=== PATIENT | female | born 1985 | race Caucasian/White ===

== ENCOUNTER 2020-09-15 09:16 | Outpatient (REF) | payer OTHER, SELFPAY ==
[2020-09-15 10:58] LABS: TSH reflex Free T4 1.17 mIU/mL (0.32-4.0)
[2020-09-15 11:11] LABS: Alanine Aminotransferase 8 U/L (0-31); Albumin Level 4.1 g/dL (3.5-5.0); Alkaline Phosphatase 38 U/L (39-117); Anion Gap 12 (12-20); Aspartate Amino Transferase 14 U/L (5-31); Bilirubin Total 0.4 mg/dL (0.0-1.0); Blood Urea Nitrogen 16 mg/dL (9-16); Calcium 8.8 mg/dL (8.4-10.2); Carbon Dioxide 25 mmol/L (22-29); Chloride 105 mmol/L (96-108); Cholesterol 190 mg/dL; Estimated Glomerular Filt Rate > 60; Glucose Fasting 97 mg/dL (60-99); HDL Cholesterol 70 mg/dL; LDL Cholesterol Calculated 106 mg/dl; Potassium 4.4 mmol/l (3.3-5.1); Sodium 138 mmol/L (135-145); Total Protein 6.9 g/dL (6.5-8.0); Triglycerides 72 mg/dL
== END 2020-09-15 09:17 | disposition home or self-care (01) ==
LOC: HO.LAB 09:16
PROVIDERS: PCP Nurse Practitioner Family; Visit Provider Nurse Practitioner Family
DX: Z00.00 Encounter for general adult medical examination without abnormal findings (principal); Z13.220 Encounter for screening for lipoid disorders; Z13.29 Encounter for screening for other suspected endocrine disorder
CPT/HCPCS: 80053; 80061; 84443

== ENCOUNTER 2020-10-28 10:06 | Outpatient (REF) | payer OTHER, SELFPAY ==
[2020-10-28 10:41] LABS: COVID-19 Test Negative (Negative)
== END 2020-10-28 10:07 | disposition home or self-care (01) ==
LOC: HO.LAB 10:06
PROVIDERS: Visit Provider Internal Medicine
DX: Z20.828 Contact with and (suspected) exposure to other viral communicable diseases (principal)
CPT/HCPCS: 36415; 87635; C9803

== ENCOUNTER 2021-02-01 12:46 | Outpatient (REF) | payer OTHER, SELFPAY ==
[2021-02-01 13:46] LABS: COVID-19 Test Negative (Negative); IDNOW Serial# 55D5AD1C
== END 2021-02-01 12:47 | disposition home or self-care (01) ==
LOC: HO.EMPCOV 12:46
PROVIDERS: Visit Provider Internal Medicine
DX: Z20.822 Contact with and (suspected) exposure to COVID-19 (principal)
CPT/HCPCS: 36415; 87635; C9803

== ENCOUNTER 2021-03-13 19:38 | Emergency (ER) | payer OTHER, SELFPAY ==
--- NOTE | ~2021-03-13 | CT_ITS ---
EXAMINATION: CT HEAD WITHOUT CONTRAST CLINICAL INFORMATION: New onset headache, confusion. COMPARISON: CT head 12/27/2017. TECHNIQUE: Contiguous axial imaging was performed from the skull base to vertex without intravenous administration of contrast. This CT examination was performed using dose optimization techniques as appropriate, variously including the following: *Automated exposure control *Adjustment of mA and/or kV according to patient size (this includes techniques or standardized protocols for targeted exams where dose is matched to indication/reason for exam; i.e. extremities or head) *Use of iterative reconstruction technique DLP: 659 mGy-cm FINDINGS: There is no evidence of acute intracranial hemorrhage or territorial infarction. No abnormal mass effect or midline shift is seen. Love to white matter differentiation is well preserved. No extra-axial fluid collections are identified. The ventricles are normal in size. There is no abnormal attenuation within the brain parenchyma. The osseous structures and soft tissues are normal. The mastoid air cells and visualized portions of the paranasal sinuses are well aerated. CT/CT head/brain wo con IMPRESSION: No acute intracranial pathology.
[2021-03-13 20:31] VITALS: BP 142/73; PULSE 69; RESP 18; TEMP 36.9; O2SAT 99; BMI 31.9
--- NOTE | 2021-03-13 20:44 | ECG_ITS ---
Test Reason : MALIASE Blood Pressure : / mmHG Vent. Rate : 053 BPM Atrial Rate : 053 BPM P-R Int : 170 ms QRS Dur : 096 ms QT Int : 426 ms P-R-T Axes : 071 068 032 degrees QTc Int : 399 ms Sinus bradycardia Otherwise normal ECG When compared with ECG of 05-FEB-2018 18:54, No significant change was found Referred By: Lukas Musa Electronically Signed By:SENTHIL TOVAR MD
--- NOTE | 2021-03-13 21:09 | ED.GENADULT ---
HPI - General Adult General Chief complaint: General Medical Stated complaint: hi bp Time Seen by Provider: 03/13/21 21:09 Source: patient Mode of arrival: ambulatory Limitations: no limitations History of Present Illness HPI narrative: Patient history of insomnia vasovagal syncope episode status post pacemaker placement been under stress lately noticed palpitation feeling for last few weeks also complaining of headache for last 1 week nausea with confusion sometimes denies any chest pain no shortness of breath no fever no chills patient denies any significant depression no focal neurological deficit no seizures no history of migraine in the past Related Data Home Medications Medication Instructions Recorded Confirmed valacyclovir 1 tab PO DAILY 03/13/21 03/13/21 Previous Rx's Medication Instructions Recorded diazepam 5 mg tablet 5 mg PO BEDTIME PRN 30 Days #30 tab 02/15/21 Allergies Allergy/AdvReac Type Severity Reaction Status Date / Time ibuprofen [Ibuprofen] Allergy Intermediate SWELLING Verified 09/06/20 13:21 OF LIPS/TONGUE, swelling No Known Food Allergies Allergy Unknown Unknown Verified 09/06/20 13:21 Review of Systems Review of Systems: Yes all other systems are reviewed and are negative PMF Past Medical History Medical History Atopic dermatitis Constipation Dyslipidemia Dyspnea Pacemaker Restless leg syndrome Vasovagal syncope Surgical History History of lumpectomy Pacemaker Family History Family History Father HTN (hypertension) Mother Asthma Son No problems noted. Daughter No problems noted. Maternal Grandmother Breast cancer Lung cancer Maternal Grandfather Diabetes mellitus Paternal Grandmother No problems noted. Paternal Grandfather HTN (hypertension) Diabetes mellitus Heart disease Social History Social History Alcohol intake: current Alcohol intake frequency: a few times a week Alcohol type: wine Patient Tobacco Use Status: Former Tobacco user Smoked in Last 30 Days: No Use of substances other than those prescribed or required for medical reasons: No Advance Directives: No Patient : No Physical Exam Vital Signs: Vital Signs: Last Vital Signs Temp 98.7 F 03/13/21 21:47 Pulse 57 03/13/21 23:44 Resp 18 03/13/21 23:44 BP 107/65 03/13/21 23:44 Pulse Ox 98 03/13/21 23:44 Body Mass Index 31.9 Appearance: Alert. Oriented X3. No acute distress. Eyes: PERRLA, No Nystagmus ENT: Pharynx normal. Oral Mucosa moist no temporal artery tenderness no scalp tenderness Neck: Normal inspection. Neck supple. CVS: Normal heart rate and rhythm. Pulses normal. Respiratory: No respiratory distress. Equal air entry bilateral, no wheezing/rales/rhonchi Abdomen: Soft and nontender. Bowel sounds are present, no mass palpable, no CVA tenderness Skin: Skin warm and dry. Normal skin color. Normal skin turgor. Extremities: No lower extremity edema. No calf tenderness Neuro: Oriented X 3. No motor deficit. No sensory deficit.No cerebellar signs , cranial nerves II-XII intact Medical Decision Making MDM Narrative Medical decision making narrative: Patient with nonspecific multiple symptoms during stay in the ER patient had palpitation episode but no arrhythmias noticed on property assessment monitor CT scan head is negative labs are stable patient's symptoms likely from anxiety patient has appointment to see noise abatement engineer tomorrow Lab Data Lab results reviewed: Yes I reviewed the patient's lab results. Result diagrams: 03/13/21 21:31 03/13/21 21:31 Labs: Lab Results 03/13/21 03/13/21 03/13/21 Range/Units 21:31 21:31 21:31 WBC 8.0 (4.8-10.8) X10*3/uL RBC 4.00 L (4.20-5.50) X10*6/uL Hgb 12.5 (12.0-16.0) g/dl Hct 37.3 (37-47) % MCV 93.3 (80-98) fL MCH 31.3 (27.0-33.0) pg MCHC 33.5 (31.0-35.0) g/dl RDW 12.5 (11.0-16.0) % Plt Count 280 (160-400) X10*3/uL MPV 9.2 L (9.4-12.3) fL Immature Gran % (Auto) 0.4 (0.0-0.4) % Neut % (Auto) 57.5 (45-73) % Lymph % (Auto) 30.8 (20-40) % [place] % (Auto) 6.0 (2-11) % Eos % (Auto) 4.5 H (0-4) % Baso % (Auto) 0.8 (0-2) % Lymph # (Auto) 2.5 (1.2-4.9) X10*3/uL [place] # (Auto) 0.5 (0.1-1.2) X10*3/uL Eos # (Auto) 0.4 (0.0-0.4) X10*3/uL Baso # (Auto) 0.1 (0.0-0.2) X10*3/uL Abs Immat Gran (auto) 0.03 (0.00-0.03) X10*3/uL Absolute Neuts (auto) 4.6 (2.0-8.3) X10*3/uL Absolute Nucleated RBC 0.000 (0.0-0.012) X10*3/uL Nucleated RBC % (auto) 0.0 (0.0-0.2) /100WBC PT 13.0 (10.8-13.0) SEC INR 1.1 (0.9-1.1) Sodium 140 (135-145) mmol/L Potassium 3.7 (3.3-5.1) mmol/L Chloride 109 H (96-108) mmol/L Carbon Dioxide 25 (22-29) mmol/L Anion Gap 10 L (12-20) BUN 19 H (9-16) mg/dL Creatinine 0.94 (0.5-1.4) mg/dL Estim Creat Clear Calc 100.7 Estimated GFR > 60 Random Glucose 96 (60-115) mg/dL Calcium 9.0 (8.4-10.2) mg/dL Magnesium (1.6-2.6) mg/dL Total Bilirubin 0.5 (0.0-1.0) mg/dL AST 16 (5-31) U/L ALT 9 (0-31) U/L Alkaline Phosphatase 36 L (39-117) U/L Troponin I High Sens (<3.5-17.0) ng/L Total Protein 6.3 L (6.5-8.0) g/dL Albumin 3.8 (3.5-5.0) g/dL Urine Color Urine Appearance Urine pH (5.0-8.0) Ur Specific [employer] (1.005-1.025) Urine Protein (NEG-TRACE) MG/DL Urine Glucose (UA) (NEG) MG/DL Urine Ketones (NEG) MG/DL Urine Blood (NEG) Urine Nitrite (NEG) Ur Leukocyte Esterase (NEG) Urine RBC (0) /HPF Urine WBC (0-4) /HPF Ur Squamous Epith Cells /LPF Urine Bacteria /LPF Urine Test (NEGATIVE) COVID-19 (GAMALIEL) (Negative) COVID-19 Clin Com 03/13/21 03/13/21 03/13/21 Range/Units 21:31 21:31 21:38 WBC (4.8-10.8) X10*3/uL RBC (4.20-5.50) X10*6/uL Hgb (12.0-16.0) g/dl Hct (37-47) % MCV (80-98) fL MCH (27.0-33.0) pg MCHC (31.0-35.0) g/dl RDW (11.0-16.0) % Plt Count (160-400) X10*3/uL MPV (9.4-12.3) fL Immature Gran % (Auto) (0.0-0.4) % Neut % (Auto) (45-73) % Lymph % (Auto) (20-40) % [place] % (Auto) (2-11) % Eos % (Auto) (0-4) % Baso % (Auto) (0-2) % Lymph # (Auto) (1.2-4.9) X10*3/uL [place] # (Auto) (0.1-1.2) X10*3/uL Eos # (Auto) (0.0-0.4) X10*3/uL Baso # (Auto) (0.0-0.2) X10*3/uL Abs Immat Gran (auto) (0.00-0.03) X10*3/uL Absolute Neuts (auto) (2.0-8.3) X10*3/uL Absolute Nucleated RBC (0.0-0.012) X10*3/uL Nucleated RBC % (auto) (0.0-0.2) /100WBC PT (10.8-13.0) SEC INR (0.9-1.1) Sodium (135-145) mmol/L Potassium (3.3-5.1) mmol/L Chloride (96-108) mmol/L Carbon Dioxide (22-29) mmol/L Anion Gap (12-20) BUN (9-16) mg/dL Creatinine (0.5-1.4) mg/dL Estim Creat Clear Calc Estimated GFR Random Glucose (60-115) mg/dL Calcium (8.4-10.2) mg/dL Magnesium 2.0 (1.6-2.6) mg/dL Total Bilirubin (0.0-1.0) mg/dL AST (5-31) U/L ALT (0-31) U/L Alkaline Phosphatase (39-117) U/L Troponin I High Sens < 3.5 (<3.5-17.0) ng/L Total Protein (6.5-8.0) g/dL Albumin (3.5-5.0) g/dL Urine Color YELLOW Urine Appearance HAZY Urine pH 6.0 (5.0-8.0) Ur Specific [employer] 1.025 (1.005-1.025) Urine Protein NEG (NEG-TRACE) MG/DL Urine Glucose (UA) NEG (NEG) MG/DL Urine Ketones NEG (NEG) MG/DL Urine Blood 2+ H (NEG) Urine Nitrite NEG (NEG) Ur Leukocyte Esterase NEG (NEG) Urine RBC 1-4 (0) /HPF Urine WBC 0 (0-4) /HPF Ur Squamous Epith Cells 1+ /LPF Urine Bacteria 1+ /LPF Urine Test (NEGATIVE) COVID-19 (GAMALIEL) (Negative) COVID-19 Clin Com 03/13/21 03/13/21 Range/Units 21:38 22:27 WBC (4.8-10.8) X10*3/uL RBC (4.20-5.50) X10*6/uL Hgb (12.0-16.0) g/dl Hct (37-47) % MCV (80-98) fL MCH (27.0-33.0) pg MCHC (31.0-35.0) g/dl RDW (11.0-16.0) % Plt Count (160-400) X10*3/uL MPV (9.4-12.3) fL Immature Gran % (Auto) (0.0-0.4) % Neut % (Auto) (45-73) % Lymph % (Auto) (20-40) % [place] % (Auto) (2-11) % Eos % (Auto) (0-4) % Baso % (Auto) (0-2) % Lymph # (Auto) (1.2-4.9) X10*3/uL [place] # (Auto) (0.1-1.2) X10*3/uL Eos # (Auto) (0.0-0.4) X10*3/uL Baso # (Auto) (0.0-0.2) X10*3/uL Abs Immat Gran (auto) (0.00-0.03) X10*3/uL Absolute Neuts (auto) (2.0-8.3) X10*3/uL Absolute Nucleated RBC (0.0-0.012) X10*3/uL Nucleated RBC % (auto) (0.0-0.2) /100WBC PT (10.8-13.0) SEC INR (0.9-1.1) Sodium (135-145) mmol/L Potassium (3.3-5.1) mmol/L Chloride (96-108) mmol/L Carbon Dioxide (22-29) mmol/L Anion Gap (12-20) BUN (9-16) mg/dL Creatinine (0.5-1.4) mg/dL Estim Creat Clear Calc Estimated GFR Random Glucose (60-115) mg/dL Calcium (8.4-10.2) mg/dL Magnesium (1.6-2.6) mg/dL Total Bilirubin (0.0-1.0) mg/dL AST (5-31) U/L ALT (0-31) U/L Alkaline Phosphatase (39-117) U/L Troponin I High Sens (<3.5-17.0) ng/L Total Protein (6.5-8.0) g/dL Albumin (3.5-5.0) g/dL Urine Color Urine Appearance Urine pH (5.0-8.0) Ur Specific [employer] (1.005-1.025) Urine Protein (NEG-TRACE) MG/DL Urine Glucose (UA) (NEG) MG/DL Urine Ketones (NEG) MG/DL Urine Blood (NEG) Urine Nitrite (NEG) Ur Leukocyte Esterase (NEG) Urine RBC (0) /HPF Urine WBC (0-4) /HPF Ur Squamous Epith Cells /LPF Urine Bacteria /LPF Urine Test NEGATIVE (NEGATIVE) COVID-19 (GAMALIEL) Negative (Negative) COVID-19 Clin Com See Note ECG Data Attestation: I personally reviewed and interpreted this ECG as follows: Interpretation: Sinus bradycardia with heart rate 53 beats per minute normal intervals normal axis no acute ST wave changes impression sinus bradycardia Discharge Plan Discharge Clinical Impression: Acute tension headache, Heart palpitations Patient Disposition: Home, Self-Care Instructions: Heart Palpitations (ED), Acute Headache (ED) Additional Instructions: Continue medications Follow-up with noise abatement engineer as scheduled tomorrow In the ER we did not notice any significant arrhythmias Your head CT is negative Prescriptions: No Action diazepam 5 mg tablet 5 mg PO BEDTIME PRN (Reason: sleep) 30 Days Qty: 30 RF: 3 valacyclovir 500 mg tablet 1 tab PO DAILY RF: 0 Interventions: ED Discharge Assessment Last Done: 03/13/21 23:49 Discharge Date/Time: 03/13/21 23:53
[2021-03-13 21:42] LABS: MANUAL DIFF FLAG NO
[2021-03-13 21:45] LABS: Basophils Absolute Auto 0.1 X10*3/uL (0.0-0.2); Basophils Percent Auto 0.8 % (0-2); Eosinophils Absolute Auto 0.4 X10*3/uL (0.0-0.4); Eosinophils Percent Auto 4.5 % (0-4); Hematocrit 37.3 % (37-47); Hemoglobin 12.5 g/dl (12.0-16.0); Imm Gran Abs Auto 0.03 X10*3/uL (0.00-0.03); Imm Gran Pct Auto 0.4 % (0.0-0.4); Lymphocytes Absolute Auto 2.5 X10*3/uL (1.2-4.9); Lymphocytes Percent Auto 30.8 % (20-40); Mean Corpuscular HGB Conc 33.5 g/dl (31.0-35.0); Mean Corpuscular Hemoglobin 31.3 pg (27.0-33.0); Mean Corpuscular Volume 93.3 fL (80-98); Mean Platelet Volume 9.2 fL (9.4-12.3); Monocytes Absolute Auto 0.5 X10*3/uL (0.1-1.2); Neutrophils Absolute Auto 4.6 X10*3/uL (2.0-8.3); Neutrophils Percent Auto 57.5 % (45-73); Platelet Count 280 X10*3/uL (160-400); Red Cell Distribution Width 12.5 % (11.0-16.0)
[2021-03-13 21:47] VITALS: BP 111/63; PULSE 55; RESP 17; TEMP 37.1; O2SAT 97
[2021-03-13 21:50] LABS: INTERNATIONAL NORM RATIO 1.1 (0.9-1.1)
[2021-03-13 21:51] LABS: Glucose Urine UA NEG (NEG); Leukocyte Esterase Urine NEG (NEG); Nitrite Urine NEG (NEG); Specific Gravity - Urine 1.025 (1.005-1.025); Urine Blood 2+ (NEG); Urine Ketones NEG (NEG); Urine Protein NEG (NEG-TRACE)
[2021-03-13 21:52] LABS: Appearance Urine HAZY; Color Urine YELLOW
[2021-03-13 21:53] LABS: UPreg QC Valid YES; Urine Pregnancy NEGATIVE (NEGATIVE)
[2021-03-13] MEDS: Morphine Sulfate 4 MG/ML CARTRIDGE IVPUSH (21:53)
[2021-03-13] MEDS: ondansetron HCL 4 MG/2 ML VIAL IVPUSH (21:54)
[2021-03-13 22:01] LABS: Bacteria Urine 1+ /LPF; Squamous Epithelial Cell Urine 1+ /LPF; WBC Urine 0 /HPF (0-4)
[2021-03-13 22:13] LABS: Alanine Aminotransferase 9 U/L (0-31); Albumin Level 3.8 g/dL (3.5-5.0); Alkaline Phosphatase 36 U/L (39-117); Anion Gap 10 (12-20); Aspartate Amino Transferase 16 U/L (5-31); Bilirubin Total 0.5 mg/dL (0.0-1.0); Blood Urea Nitrogen 19 mg/dL (9-16); Carbon Dioxide 25 mmol/L (22-29); Chloride 109 mmol/L (96-108); Creatinine Clr Calc Pharmacy 100.7; Estimated Glomerular Filt Rate > 60; Glucose Random 96 mg/dL (60-115); Potassium 3.7 mmol/L (3.3-5.1); Sodium 140 mmol/L (135-145); Total Protein 6.3 g/dL (6.5-8.0)
[2021-03-13 22:18] LABS: Troponin-I High Sensitivity < 3.5 ng/L (<3.5-17.0)
[2021-03-13 22:51] LABS: COVID-19 Test Negative (Negative); IDNOW Serial# 9DD0AD1C
[2021-03-13] MEDS: Butalb/Acetamin/Caff 50/325/40 TABLET 1 TAB PO (23:36)
[2021-03-13 23:44] VITALS: BP 107/65; PULSE 57; RESP 18; O2SAT 98
== END 2021-03-13 23:53 | disposition home or self-care (01) ==
PROVIDERS: Emergency Provider Internal Medicine; PCP Nurse Practitioner Family
DX: G44.209 Tension-type headache, unspecified, not intractable (principal); R00.2 Palpitations; Z20.822 Contact with and (suspected) exposure to COVID-19; Z87.891 Personal history of nicotine dependence; Z79.899 Other long term (current) drug therapy
CPT/HCPCS: 36415; 70450; 80053; 81001; 81025; 83735; 84484; 85025; 85610; 87635; 93005; 96374; 96375; 99285; J2270; J2405

== ENCOUNTER → 2021-03-14 12:39 | Outpatient (BNVA) | payer OTHER, SELFPAY | PROVIDERS: Referring Provider Nurse Practitioner Family; Visit Provider Internal Medicine Cardiovascular Disease ==

== ENCOUNTER → 2021-04-05 08:32 | Outpatient (BNVA) | payer OTHER, SELFPAY | PROVIDERS: Visit Provider Obstetrics & Gynecology ==

== ENCOUNTER 2021-05-19 10:42 | Outpatient (REF) | payer OTHER, SELFPAY ==
[2021-05-19 12:03] LABS: Anion Gap 14 (12-20); Blood Urea Nitrogen 19 mg/dL (9-16); Carbon Dioxide 22 mmol/L (22-29); Chloride 106 mmol/L (96-108); Estimated Glomerular Filt Rate > 60; Glucose Random 92 mg/dL (60-115); Potassium 4.4 mmol/L (3.3-5.1); Sodium 138 mmol/L (135-145)
== END 2021-05-19 10:43 | disposition home or self-care (01) ==
LOC: HO.LAB 10:42
PROVIDERS: PCP Nurse Practitioner Family; Referring Provider Nurse Practitioner Family; Visit Provider Internal Medicine Cardiovascular Disease
DX: R55 Syncope and collapse (principal); R00.2 Palpitations; I10 Essential (primary) hypertension; Z79.899 Other long term (current) drug therapy; Z87.891 Personal history of nicotine dependence; Z95.0 Presence of cardiac pacemaker
CPT/HCPCS: 36415; 80048

== ENCOUNTER 2021-09-18 07:32 | Outpatient (REF) | payer OTHER, SELFPAY ==
[2021-09-18 07:41] LABS: MANUAL DIFF FLAG NO
[2021-09-18 07:52] LABS: Basophils Percent Auto 0.7 % (0-2); Eosinophils Absolute Auto 0.3 X10*3/uL (0.0-0.4); Eosinophils Percent Auto 5.7 % (0-4); Hematocrit 41.5 % (37.0-47.0); Hemoglobin 13.4 g/dl (12.0-16.0); Imm Gran Abs Auto 0.01 X10*3/uL (0.00-0.03); Imm Gran Pct Auto 0.2 % (0.0-0.4); Lymphocytes Absolute Auto 1.8 X10*3/uL (1.2-4.9); Lymphocytes Percent Auto 32.1 % (20-40); Mean Corpuscular HGB Conc 32.3 g/dl (31.0-35.0); Mean Corpuscular Hemoglobin 30.6 pg (27.0-33.0); Mean Corpuscular Volume 94.7 fL (80.0-98.0); Mean Platelet Volume 9.1 fL (9.4-12.3); Monocytes Absolute Auto 0.5 X10*3/uL (0.1-1.2); Monocytes Percent Auto 8.2 % (2-11); Neutrophils Percent Auto 53.1 % (45-73); Platelet Count 281 X10*3/uL (160-400); Red Blood Count 4.38 X10*6/uL (4.20-5.50); Red Cell Distribution Width 12.4 % (11.0-16.0); White Blood Count 5.6 X10*3/uL (4.8-10.8)
[2021-09-18 08:23] LABS: Alanine Aminotransferase 11 U/L (0-31); Albumin Level 3.9 g/dL (3.5-5.0); Alkaline Phosphatase 33 U/L (39-117); Anion Gap 10 (12-20); Aspartate Amino Transferase 17 U/L (5-31); Bilirubin Total 0.6 mg/dL (0.0-1.0); Blood Urea Nitrogen 12 mg/dL (9-16); Calcium 9.1 mg/dL (8.4-10.2); Carbon Dioxide 25 mmol/L (22-29); Chloride 108 mmol/L (96-108); Cholesterol 190 mg/dL; Estimated Glomerular Filt Rate > 60; Glucose Fasting 92 mg/dL (60-99); HDL Cholesterol 58 mg/dL; LDL Cholesterol Calculated 116 mg/dl; Potassium 4.1 mmol/L (3.3-5.1); Sodium 139 mmol/L (135-145); Total Protein 6.5 g/dL (6.5-8.0); Triglycerides 82 mg/dL
[2021-09-18 08:38] LABS: Appearance Urine CLEAR; Color Urine YELLOW; Glucose Urine UA NEG (NEG); Leukocyte Esterase Urine NEG (NEG); Nitrite Urine NEG (NEG); Specific Gravity - Urine 1.025 (1.005-1.025); UACC Culture Trigger NO; Urine Blood 1+ (NEG); Urine Ketones NEG (NEG); Urine Protein NEG (NEG-TRACE)
[2021-09-18 08:43] LABS: TSH reflex Free T4 1.18 uIU/mL (0.32-4.0)
[2021-09-18 08:52] LABS: Squamous Epithelial Cell Urine 2+ /LPF; WBC Urine 0-2 /HPF (0-4)
[2021-09-18 08:53] LABS: RBC Urine 0-2 /HPF (0)
== END 2021-09-18 07:33 | disposition home or self-care (01) ==
LOC: HO.LAB 07:32
PROVIDERS: Visit Provider Nurse Practitioner Family
DX: Z00.00 Encounter for general adult medical examination without abnormal findings (principal)
CPT/HCPCS: 36415; 80053; 80061; 81001; 84443; 85025

== ENCOUNTER → 2021-12-06 08:44 | Outpatient (BNVA) | payer OTHER, SELFPAY | PROVIDERS: PCP Nurse Practitioner Family; Referring Provider Nurse Practitioner Family; Visit Provider Internal Medicine Cardiovascular Disease ==

== ENCOUNTER → 2022-01-29 15:31 | Outpatient (BNVA) | payer OTHER, SELFPAY | PROVIDERS: PCP Nurse Practitioner Family; Visit Provider Internal Medicine Cardiovascular Disease | DX: Z13.89 Encounter for screening for other disorder (principal) ==

== ENCOUNTER → 2022-01-30 13:00 | Outpatient (BNVA) | payer OTHER, SELFPAY | PROVIDERS: PCP Nurse Practitioner Family; Visit Provider Nurse Practitioner Family | DX: Z13.89 Encounter for screening for other disorder (principal) ==

== ENCOUNTER 2022-02-07 08:44 | Outpatient (REF) | payer OTHER, SELFPAY ==
[2022-02-07 13:15] LABS: Influenza A PCR POSITIVE (Negative); Influenza B PCR NEGATIVE (Negative); Resp Syncy Virus RNA Qual PCR NEGATIVE (Negative); SARS COV2 PCR INHOUSE NEGATIVE (Negative)
== END 2022-02-07 08:45 | disposition home or self-care (01) ==
LOC: HO.LAB 08:44
PROVIDERS: Visit Provider Hospitalist
DX: Z20.822 Contact with and (suspected) exposure to COVID-19 (principal); J06.9 Acute upper respiratory infection, unspecified
CPT/HCPCS: 0241U

== ENCOUNTER 2022-04-02 12:00 | Outpatient (RCR) | payer OTHER, SELFPAY ==
--- NOTE | 2022-03-12 13:14 | MHC.PT.EP ---
[facility] [place] Office [place] Office [place] Office [address] [phone] F: [phone] F: [phone] F: [phone] F: [phone] Physical Therapy Plan of Care Date of Evaluation: Date of Surgery: N/A Diagnosis: Cervicalgia Tension-type headache, unspecified, not intractable Assessment: Pt is a pleasant 37yo F who presents to PT with R sided neck pain and headaches for ~1 month. Pt presents with current impairments in pain, decreased cervical ROM, soft tissue restrictions, and impaired posture. She was TTP throughout R occipitals, cervical PS, UT, levator, and medial scap border. She had improvement in symptoms with occipital release. She is limited functionally by prolonged sitting. Pt is an excellent candidate for skilled PT in order to address current impairments to facilitate return to PLOF. She will be seen 2x/week for 4 weeks and will be reassessed at that time. Frequency and Duration: The patient will be seen 2x/week for 4 weeks Short Term Goals: Pt will be I with HEP to promote self management of symptoms Pt will demonstrate improvements in postural awareness throughout the day Pt will improve B lateral flexion by at least 5 degrees Religious Leader Goals: Pt will demonstrate full cervical ROM all planes to assist with functional tasks such as driving Pt will have a decrease in frequency of headaches from 0-1x/week Pt will perform ADLs and functional tasks with pain less than or equal to 1/10 throughout neck Treatment Plan: Modalities to reduce pain, spasms and effusion. Manual therapy to restore motion and function. Therapeutic exercise to improve strength and flexibility. Neuromuscular re-education for posture and balance. Therapeutic activities to return to functional activities of daily living. Electronically signed by: Kelsy Meredith, PT, DPT Please sign and return to therapist. Thank you for your referral.
--- NOTE | 2022-04-03 16:41 | MHC.PT.DC ---
[facility] [place] Office [place] Office [place] Office [address] Kelly Ortiz [address] [phone] F: [phone] F: [phone] F: [phone] F: [phone] Physical Therapy Discharge Report Diagnosis: Cervicalgia Tension-type headache, unspecified, not intractable Date of Surgery: N/A Date of Evaluation: 03/12/22 Date of Discharge: 04/03/22 Treatments to Date: 6 Cancellations to Date: 0 No Shows to Date: 0 Discharge Status: Achieved Goals Improved Function Independent with HEP Discharge Summary: Pt has made excellent progress since SOC. She has had a decrease in pain and improvement in postural awareness. She has also had a decrease in headaches. She has improved her cervical ROM and has decreased soft tissue restrictions throughout her upper traps. She does continue to have some tightness but overall has improved greatly. She is I with HEP. Pt is being D/C from skilled PT at this time. Provided pt with printed, updated copy of HEP at last attended appointment on 04/02/22 and pt verbalized understanding. Pt reports no further questions or concerns for PT at time of D/C. Electronically signed by: Please sign and return to therapist. Thank you for your referral.
== END 2022-04-03 16:41 | disposition home or self-care (01) ==
LOC: HO.PT 12:00
PROVIDERS: Visit Provider Nurse Practitioner Family
DX: M54.2 Cervicalgia (principal); G44.209 Tension-type headache, unspecified, not intractable
CPT/HCPCS: 97110; 97140; 97162; 97530

== ENCOUNTER 2022-09-14 07:05 | Outpatient (REF) | payer OTHER, SELFPAY ==
[2022-09-14 07:10] LABS: MANUAL DIFF FLAG NO
[2022-09-14 07:24] LABS: Basophils Absolute Auto 0.1 X10*3/uL (0.0-0.2); Basophils Percent Auto 0.9 % (0-2); Eosinophils Absolute Auto 0.4 X10*3/uL (0.0-0.4); Eosinophils Percent Auto 5.3 % (0-4); Hematocrit 40.4 % (37.0-47.0); Hemoglobin 13.7 g/dl (12.0-16.0); Imm Gran Abs Auto 0.02 X10*3/uL (0.00-0.03); Imm Gran Pct Auto 0.3 % (0.0-0.4); Lymphocytes Absolute Auto 1.9 X10*3/uL (1.2-4.9); Lymphocytes Percent Auto 29.2 % (20-40); Mean Corpuscular HGB Conc 33.9 g/dl (31.0-35.0); Mean Corpuscular Hemoglobin 31.1 pg (27.0-33.0); Mean Corpuscular Volume 91.6 fL (80.0-98.0); Mean Platelet Volume 8.9 fL (9.4-12.3); Monocytes Absolute Auto 0.5 X10*3/uL (0.1-1.2); Monocytes Percent Auto 7.7 % (2-11); Neutrophils Absolute Auto 3.7 x10*3/uL (2.0-8.3); Neutrophils Percent Auto 56.6 % (45-73); Platelet Count 307 X10*3/uL (160-400); Red Blood Count 4.41 X10*6/uL (4.20-5.50); Red Cell Distribution Width 11.9 % (11.0-16.0); White Blood Count 6.6 X10*3/uL (4.8-10.8)
[2022-09-14 08:07] LABS: Appearance Urine Clear; Color Urine Yellow; Glucose Urine UA Negative (Negative); Leukocyte Esterase Urine Negative (Negative); Nitrite Urine Negative (Negative); PH 5.5 (5.0-9.0); Specific Gravity - Urine 1.025 (1.005-1.025); Urine Blood Negative (Negative); Urine Ketones Negative (Negative); Urine Protein Negative (Neg-Trace)
[2022-09-14 08:16] LABS: Alanine Aminotransferase 13 U/L (0-31); Albumin Level 4.1 g/dL (3.5-5.0); Alkaline Phosphatase 41 U/L (39-117); Anion Gap 11 (12-20); Aspartate Amino Transferase 18 U/L (5-31); Bilirubin Total 0.6 mg/dL (0.0-1.0); Blood Urea Nitrogen 14 mg/dL (9-16); Calcium 8.8 mg/dL (8.4-10.2); Carbon Dioxide 24 mmol/L (22-29); Chloride 108 mmol/L (96-108); Cholesterol 196 mg/dL; Estimated Glomerular Filt Rate > 60; Glucose Fasting 82 mg/dL (60-99); HDL Cholesterol 58 mg/dL; LDL Cholesterol Calculated 124 mg/dl; Sodium 139 mmol/L (135-145); TSH reflex Free T4 1.43 uIU/mL (0.32-4.0); Total Protein 6.6 g/dL (6.5-8.0); Triglycerides 74 mg/dL
== END 2022-09-14 07:06 | disposition home or self-care (01) ==
LOC: HO.LAB 07:05
PROVIDERS: PCP Nurse Practitioner Family; Visit Provider Nurse Practitioner Family
DX: Z00.00 Encounter for general adult medical examination without abnormal findings (principal)
CPT/HCPCS: 36415; 80053; 80061; 81003; 84443; 85025

== ENCOUNTER → 2022-12-10 09:18 | Outpatient (BNVA) | payer OTHER, SELFPAY | PROVIDERS: PCP Nurse Practitioner Family; Referring Provider Nurse Practitioner Family; Visit Provider Internal Medicine Cardiovascular Disease | DX: I10 Essential (primary) hypertension (principal); Z95.0 Presence of cardiac pacemaker | CPT/HCPCS: 93005; 93280 ==

== ENCOUNTER 2023-05-17 09:12 | Outpatient (AMB) | payer OTHER, SELFPAY ==
--- NOTE | 2023-05-17 09:26 | MHC.OFFVIS ---
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 Scribed for ARNOL Alejandro by Altagracia Field medical engineer, on 05/17/2023 at 9:42 am EST. Warping Machine Operator Required: No Information Interpreted: non-clinical & clinical Senior Bi Developer: Senior Bi Developer Present (Tayler REYES) Accompanied by: Self / Same As Patient Allergies No Known Allergies Allergy (Verified 05/17/23 09:33) Is last menstrual period known: Yes Last menstrual period: 05/05/23 HPI HPI Comments History of Present Illness Details She is a premenopausal woman presenting for annual exam. Complains of left sided back, upper flank pain, has not seen her PCP yet for this concern. Denies urinary symptoms. She admits to eating healthy and tries to stay active with exercise. Currently sexually active. Denies vaginal itching and irritation. Denies family hx of colon and ovarian cancer. Last pap smear 03/25/19. [facility] Medical History Atopic dermatitis Constipation Dyslipidemia Dyspnea HTN (hypertension) Pacemaker Restless leg syndrome Vasovagal syncope Surgical History History of lumpectomy Pacemaker Family History Father HTN (hypertension) Mother Asthma Son No problems noted. Daughter No problems noted. Maternal Grandmother Breast cancer Lung cancer Maternal Grandfather Diabetes mellitus Paternal Grandmother No problems noted. 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, [employer] Current occupational exposures/hazards: No Gender identity: Female Cognitive needs: No Hearing needs: No Vision needs: No Female Reproductive History Menstrual Age of Menarche: 15 Duration of menses: 3-5 days Date of last menstrual period: 05/05/23 control method: other (vasectomy) Total pregnancies: 2 Full term: 2 Number of Living Children: 2 Date of last pap smear: 03/25/19 Physical Exam Vital Signs: Last Vital Signs BP 110/68 05/17/23 09:27 BMI result Body Mass Index 41.5 Const General: cooperative, healthy appearing, no acute distress, well developed and alert Orientation/consciousness: patient oriented x3 HEENT Head: Yes normal to inspection Eyes General: appearance normal, both eyes and all related structures Neck Neck: Yes normal visual inspection Thyroid: Thyroid normal Chest Chest palpation & inspection: normal inspection of the chest Breast/axilla inspection: normal inspection of the breasts (no puckering, dimpling, peau de orange, retraction, discharge, masses) Breast/axilla palpation: normal palpation of the breasts Resp Effort & Inspection: normal respiratory effort GI Inspection: Yes normal to inspection Palpation (GI): Soft to palpation (to palpation) Rectal Exam - Female: deferred General: Yes bladder normal to inspection External Female Exam: normal external appearance and normal appearance of the urethra Speculum Exam - Vagina: normal appearance of the vagina, normal palpation and normal vaginal discharge Speculum Exam - Cervix: normal appearance of the cervix and normal palpation Bimanual exam- vagina & uterus: normal palpation and normal palpation Bimanual Exam- Adnexa, other: normal adnexae and no masses Skin General skin exam: no rashes or lesions noted Neuro General: patient oriented x3 Cognition (Neuro): normal cognition Extrem General: Yes normal to inspection Psych Attitude: cooperative Thought process: Normal thought process present Assessment & Plan Assessment & Plan (1) Encounter for well woman exam: Code(s): Z01.419 - Encounter for gynecological examination (general) (routine) without abnormal findings Plan: Discussed: Current recommendations for pap smears per ASCCP guidelines Breast awareness and periodic self breast exams. Maintaining a healthy lifestyle including a well balanced diet and routine exercise. Recommend if muscular-try yoga and stretches for left sided pain, and if persists consult with PCP for further workup. All of her questions and concerns were addressed to the best of my ability. RTO in one year for AG. Coding Level of Care Code Est Pt Prev Care 18-39y(14209) Diagnoses Encounter for well woman exam Z01.419
[2023-05-17 09:27] VITALS: BP 110/68; BMI 41.5
== END 2023-05-17 09:57 | disposition home or self-care (01) ==
LOC: HO.HWS 09:12
PROVIDERS: PCP Nurse Practitioner Family; Visit Provider Advanced Practice Midwife
DX: Z01.419 Encounter for gynecological examination (general) (routine) without abnormal findings (principal)
CPT/HCPCS: 99395

== ENCOUNTER → 2023-05-17 09:12 | Outpatient (BNVA) | payer OTHER, SELFPAY | PROVIDERS: PCP Nurse Practitioner Family; Visit Provider Advanced Practice Midwife ==

== ENCOUNTER → 2023-06-13 23:59 | Outpatient (BNV) | payer OTHER, SELFPAY ==
--- NOTE | 2023-06-13 11:26 | A.OFFVIS_ITS ---
Intake Intake Visit Reasons: Remote Device Check- [employer] Allergies No Known Allergies Allergy (Verified 05/17/23 09:33) [facility] Medical History Atopic dermatitis Constipation Dyslipidemia Dyspnea HTN (hypertension) Pacemaker Restless leg syndrome Vasovagal syncope Surgical History History of lumpectomy Pacemaker Family History Father HTN (hypertension) Mother Asthma Son No problems noted. Daughter No problems noted. Maternal Grandmother Breast cancer Lung cancer Maternal Grandfather Diabetes mellitus Paternal Grandmother No problems noted. 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 Pacemaker function is adequate [id number] Cardiac Device Interrogation, pacemaker Procedure code (CPT) selection complete Coding Level of Care Code Procedure Only CPT Codes Cardiac Device Check - Cardiac Device 12: [id number]-[id number] Cardiac Device Interrogation, pacemaker ([id number])
== END ==
PROVIDERS: PCP Nurse Practitioner Family; Visit Provider Internal Medicine Cardiovascular Disease
DX: Z00-Z99 Factors influencing health status and contact with health services (principal)
CPT/HCPCS: 93294

== ENCOUNTER 2023-09-12 10:30 | Outpatient (AMB) | payer OTHER, SELFPAY ==
--- NOTE | 2023-09-12 10:44 | MHC.PC.OV ---
Vital Signs 09/12/23 10:46 Weight 0 oz BMI Reason not done Patient refused/unable BP 122/78 Blood Pressure Location Rt brachial Position Sitting Pulse 66 Pulse Source Pulse Oximeter Pulse Oximetry (%) 96 Oxygen Delivery Method Room Air Intake Visit Reasons: Annual PE Intake Note: Patient here for physical exam. Allergies No Known Allergies Allergy (Verified 09/12/23 10:46) Medication List - Last Reconciled 09/12/23 by DERRELL Govea diazepam 5 mg PO BEDTIME PRN 30 days labetalol 200 mg PO BID valacyclovir 500 mg PO DAILY PRN Tobacco use date assessed: 09/12/23 Dental Screening Dental Screen Date: 09/12/23 Did you have a dental visit in the last 12 months?: Yes Did you have a dental problem in the last 6 months where you did not have access to dental care?: No Was dental information given to patient?: Patient has dentist HPI Annual PE HPI Details Pt is here for a PE. Will order labs. Has a obgyn hospitalist physician. Pt has a family hx of breast cancer (grandmother). She has been seen by a specialist for this in the past. [facility] Medical History HTN (hypertension) Constipation Vasovagal syncope Dyslipidemia Dyspnea Restless leg syndrome Atopic dermatitis Pacemaker Surgical History Pacemaker History of lumpectomy Family History Father HTN (hypertension) Mother Asthma Son No problems noted. Daughter No problems noted. Maternal Grandmother Breast cancer Lung cancer Maternal Grandfather Diabetes mellitus Paternal Grandmother No problems noted. 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 1. Little interest or pleasure in doing things: not at all 2. Feeling down, depressed, or hopeless: not at all 3. Trouble falling or staying asleep, or sleeping too much: several days 4. Feeling tired or having little energy: not at all 5. Poor appetite or overeating: not at all 6. Feeling bad about yourself - or that you are a failure or have let yourself or your family down: not at all 7. Trouble concentrating on things, such as reading the newspaper or watching television: not at all 8. Moving or speaking so slowly that other people could have noticed. Or the opposite - being so fidgety or restless that you have been moving around a lot more than usual: not at all 9. Thoughts that you would be better off or of hurting yourself in some way: not at all Total score: 1 Depression Screening Interpretation: Negative Depression Screening Done: Yes 64382 - PHQ-9 Billing: Yes Source: Developed by Drs. Yifan Ayers, Madai Eckert, Alonzo Hackett and colleagues, with an educational brenden from [employer]. Thrive Questionnaire Date Thrive assessed: 09/12/23 I am a: Patient Within the past 12 months, did the food you bought not last and you didn't have the money to get more?: Never true Within the past 12 months, did you worry whether your food would run out before you got money to buy more?: Never true Do you have trouble paying for medicines?: No Do you have trouble getting transportation to medical appointments?: No Do you have trouble paying your heating and electricity bill?: No Do you have trouble taking care of your child, family member or friend?: No Do you have trouble with day-to-day activities such as bathing, preparing meals, shopping, managing finances, etc.?: No Are you currently unemployed and looking for a job?: No Are you interested in more education?: No AUDIT C Alcohol Use Questionnaire (AUDIT-C) 1. How often do you have a drink containing alcohol?: Monthly or less 2. How many drinks containing alcohol do you have on a typical day when you are drinking?: 1 or 2 3. How often do you have six or more drinks on one occasion?: Never Total Score: 1 Score Reviewed/Action Taken: No CATRACHO-7 AMB Questionnaire CATRACHO-7 Date CATRACHO - 7 assessed: 09/12/23 Feeling nervous, anxious, or on edge: 1 = Several days Not being able to stop or control worryin = Not at all Worrying too much about different things: 0 = Not at all Trouble relaxin = Several days Being so restless that it is hard to sit still: 0 = Not at all Becoming easily annoyed or irritable: 0 = Not at all Feeling afraid as if something awful might happen: 0 = Not at all Total CATRACHO-7 score (0-4 normal; 5-9 mild; 10-14 moderate; 15-21 severe): 2 Source: Developed by Drs. Yifan Ayers, Madai Eckert, Alonzo Hackett and colleagues, with an educational brenden from [employer]. CATRACHO-7 Assessment Billing CATRACHO-7 Assessment Tool: CATRACHO-7 Assessment 12647 Review of Systems Const Denies chills and Denies fever(s) Eyes Denies blurry vision ENT Denies vertigo, Denies dizziness and Denies sore throat Card Denies chest pain at rest, Denies chest pain with activity, Denies diaphoresis, Denies dyspnea and Denies dyspnea on exertion Resp Denies cough, Denies dyspnea, Denies dyspnea on exertion and Denies wheezing GI Denies abdominal pain, Denies melena, Denies hematochezia, Denies constipation, Denies diarrhea and Denies loose stools Denies hematuria Musc Denies numbness and Denies tingling Skin/Breast Denies lesions Neuro Denies vertigo, Denies dizziness, Denies numbness and Denies tingling Psych Denies anxiety, Denies depression, Denies homicidal ideation, Denies suicidal ideation and Denies other (substance abuse) Aller/Immun Denies wheezing Physical exam (Primary Care) Vital Signs: Last Vital Signs Pulse 66 09/12/23 10:46 BP 122/78 12/07/23 10:46 Pulse Ox 96 09/12/23 10:46 Oxygen Delivery Method Room Air 09/12/23 10:46 Tobacco/Smoking Status: Tobacco use Status Tobacco use date assessed 09/12/23 09/12/23 10:48 Patient Tobacco Use Status Former Tobacco user 09/12/23 10:45 Tobacco use type Cigarette 09/12/23 10:45 e-Cigarette/Vaping Use Never Used 09/12/23 10:45 PHQ-9: PHQ-9 Score PHQ-9: Total score 1 09/12/23 11:31 Depression Screening Interpretation: Negative Thrive Assessment: Date of Thrive Assessment Date Thrive assessed 09/12/23 09/12/23 11:31 Const General: cooperative Nutritional Appearance: well nourished Orientation/consciousness: patient oriented x3 HENMT Head: Yes normal to inspection, Yes normocephalic and Yes atraumatic Ears: TM's normal bilaterally Eyes General: appearance normal, both eyes and all related structures Alignment and Position: alignment normal and position normal Neck Neck: Yes normal visual inspection and Yes no lymphadenopathy Thyroid: Thyroid normal Resp Effort & Inspection: normal respiratory effort Auscultation: clear to auscultation bilaterally Cardio Rate: regular rate Rhythm: regular rhythm Heart sounds: S1 normal heart sound present, S2 normal heart sound present and no murmurs GI Palpation (GI): Soft to palpation and nontender Auscultation: normal bowel sounds Skin Rashes: no rashes Neuro General: patient oriented x3, moves all extremities, no focal motor deficits and deep tendon reflexes 2+ bilaterally Romberg Test: Negative Psych Appearance: grossly normal Mental Status: mental status grossly normal Speech and movement: Normal speech and movement present Affect: normal affect Attitude: cooperative Thought process: Normal thought process present Thought content: Normal thought content present Insight: Good insight present (Psych) Judgement: Good judgement present (Psych) Assessment and Plan Assessment & Plan (1) Physical exam: Code(s): Z00.00 - Encounter for general adult medical examination without abnormal findings Plan: Labs ordered (2) Obesity: Code(s): E66.9 - Obesity, unspecified Plan: work on diet Plan The patient agreed to the use of a clinical medical transcriptionist for this encounter. Scribed for DERRELL Blanco by Lydia Loomis clinical medical transcriptionist, on 09/12/2023 at 11:00 EST. Orders: Orders Complete Blood Count Auto Diff Today Z00.00 - Encounter for general adult medical examination without abnormal findings Lipid Panel Today Z00.00 - Encounter for general adult medical examination without abnormal findings Comprehensive [place]. Panel Fast Today Z00.00 - Encounter for general adult medical examination without abnormal findings TSH reflex Free T4 Today Z00.00 - Encounter for general adult medical examination without abnormal findings UA CC w/rflx Micro + Cult Today Z00.00 - Encounter for general adult medical examination without abnormal findings Coding Level of Care Code Est Pt Prev Care 18-39y(56087) Diagnoses Physical exam Z00.00 Obesity E66.9 Additional Codes CATRACHO-7 Assessment Billing - CATRACHO-7 Assessment Tool: CATRACHO-7 Assessment 85861 ([id number])
[2023-09-12 10:46] VITALS: BP 122/78; PULSE 66; O2SAT 96
== END 2023-09-12 11:54 | disposition home or self-care (01) ==
PROVIDERS: Visit Provider Nurse Practitioner Family
DX: Z00.00 Encounter for general adult medical examination without abnormal findings (principal); E66.9 Obesity, unspecified
CPT/HCPCS: 99395

== ENCOUNTER → 2023-09-12 23:59 | Outpatient (BNV) | payer OTHER, SELFPAY ==
--- NOTE | 2023-09-16 14:32 | A.OFFVIS_ITS ---
Intake Intake Visit Reasons: Remote Device Check- Medtronic Allergies No Known Allergies Allergy (Verified 09/12/23 10:46) [facility] Medical History (Updated 09/13/23 @ 11:59 by DERRELL Govea) HTN (hypertension) Constipation Vasovagal syncope Dyslipidemia Dyspnea Restless leg syndrome Atopic dermatitis Pacemaker Surgical History Pacemaker History of lumpectomy Family History Father HTN (hypertension) Mother Asthma Son No problems noted. Daughter No problems noted. Maternal Grandmother Breast cancer Lung cancer Maternal Grandfather Diabetes mellitus Paternal Grandmother No problems noted. 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 Pacemaker function is adequate [id number] Cardiac Device Interrogation, pacemaker Procedure code (CPT) selection complete Assessment & Plan Assessment & Plan (1) Pacemaker: Comment: Dual-chamber Medtronic pacemaker placed, February 2018 Code(s): Z95.0 - Presence of cardiac pacemaker Plan: See above Coding Level of Care Code Procedure Only Diagnoses Pacemaker Z95.0 CPT Codes Cardiac Device Check - Cardiac Device 12: [id number] Cardiac Device Interrogation, pacemaker ([id number])
== END ==
PROVIDERS: PCP Nurse Practitioner Family; Visit Provider Internal Medicine Cardiovascular Disease
DX: R55 Syncope and collapse (principal); Z95.0 Presence of cardiac pacemaker
CPT/HCPCS: 93294

== ENCOUNTER 2023-09-13 07:48 | Outpatient (REF) | payer OTHER, SELFPAY ==
[2023-09-13 08:03] LABS: MANUAL DIFF FLAG NO
[2023-09-13 09:06] LABS: Basophils Absolute Auto 0.1 X10*3/uL (0.0-0.2); Basophils Percent Auto 0.7 % (0-2); Eosinophils Absolute Auto 0.3 X10*3/uL (0.0-0.4); Eosinophils Percent Auto 3.7 % (0-4); Hematocrit 41.6 % (37.0-47.0); Hemoglobin 13.7 g/dl (12.0-16.0); Imm Gran Abs Auto 0.03 X10*3/uL (0.00-0.03); Imm Gran Pct Auto 0.3 % (0.0-0.4); Lymphocytes Absolute Auto 2.3 X10*3/uL (1.2-4.9); Lymphocytes Percent Auto 25.9 % (20-40); Mean Corpuscular HGB Conc 32.9 g/dl (31.0-35.0); Mean Corpuscular Hemoglobin 29.5 pg (27.0-33.0); Mean Corpuscular Volume 89.7 fL (80.0-98.0); Mean Platelet Volume 9.6 fL (9.4-12.3); Monocytes Absolute Auto 0.7 X10*3/uL (0.1-1.2); Neutrophils Absolute Auto 5.4 x10*3/uL (2.0-8.3); Neutrophils Percent Auto 61.4 % (45-73); Platelet Count 342 X10*3/uL (160-400); Red Blood Count 4.64 X10*6/uL (4.20-5.50); Red Cell Distribution Width 12.6 % (11.0-16.0); White Blood Count 8.8 X10*3/uL (4.8-10.8)
[2023-09-13 09:15] LABS: Appearance Urine Clear; Color Urine Yellow; Glucose Urine UA Negative (Negative); Leukocyte Esterase Urine Negative (Negative); Nitrite Urine Negative (Negative); Urine Blood Negative (Negative); Urine Ketones Negative (Negative); Urine Protein Negative (Neg-Trace)
[2023-09-13 09:19] LABS: Alanine Aminotransferase 18 U/L (0-31); Albumin Level 4.3 g/dL (3.5-5.0); Alkaline Phosphatase 52 U/L (39-117); Anion Gap 11 (12-20); Aspartate Amino Transferase 21 U/L (5-31); Bilirubin Total 0.5 mg/dL (0.0-1.0); Blood Urea Nitrogen 15 mg/dL (9-16); Calcium 9.2 mg/dL (8.4-10.2); Carbon Dioxide 22 mmol/L (22-29); Chloride 109 mmol/L (96-108); Cholesterol 228 mg/dL (<200); Estimated Glomerular Filt Rate > 60; Glucose Fasting 97 mg/dL (60-99); HDL Cholesterol 49 mg/dL (>40); LDL Cholesterol Calculated 154 mg/dL (<100); Potassium 4.3 mmol/L (3.3-5.1); Sodium 138 mmol/L (135-145); Total Protein 7.6 g/dL (6.5-8.0); Triglycerides 125 mg/dL (<150)
== END 2023-09-13 07:49 | disposition home or self-care (01) ==
LOC: HO.LAB 07:48
PROVIDERS: PCP Nurse Practitioner Family; Visit Provider Nurse Practitioner Family
DX: Z00.00 Encounter for general adult medical examination without abnormal findings (principal)
CPT/HCPCS: 36415; 80053; 80061; 81003; 84443; 85025

== ENCOUNTER → 2023-12-12 23:59 | Outpatient (BNV) | payer OTHER, SELFPAY ==
--- NOTE | 2023-12-16 15:51 | A.OFFVIS_ITS ---
Intake Intake Visit Reasons: Remote Device Check- Medtronic Allergies No Known Allergies Allergy (Verified 12/13/23 09:29) COUNTS INCLUDE 234 BEDS AT THE [facility] Medical History HTN (hypertension) Constipation Vasovagal syncope Dyslipidemia Dyspnea Restless leg syndrome Atopic dermatitis Pacemaker Surgical History Pacemaker History of lumpectomy Family History Father HTN (hypertension) Mother Asthma Son No problems noted. Daughter No problems noted. Maternal Grandmother Breast cancer Lung cancer Maternal Grandfather Diabetes mellitus Paternal Grandmother No problems noted. 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 Pacemaker function is adequate [id number] Cardiac Device Interrogation, pacemaker Procedure code (CPT) selection complete Assessment & Plan Assessment & Plan (1) Pacemaker: Comment: Dual-chamber Medtronic pacemaker placed, February 2018 Code(s): Z95.0 - Presence of cardiac pacemaker Plan: See above Coding Level of Care Code Procedure Only Diagnoses Pacemaker Z95.0 CPT Codes Cardiac Device Check - Cardiac Device 12: [id number] Cardiac Device Interrogation, pacemaker ([id number])
== END ==
PROVIDERS: PCP Nurse Practitioner Family; Visit Provider Internal Medicine Cardiovascular Disease
DX: R55 Syncope and collapse (principal); Z95.0 Presence of cardiac pacemaker
CPT/HCPCS: 93294

== ENCOUNTER 2023-12-13 09:26 | Outpatient (AMB) | payer OTHER, SELFPAY ==
[2023-12-13 09:28] VITALS: BP 110/60; PULSE 55
--- NOTE | 2023-12-13 09:28 | A.OFFVIS_ITS ---
Intake Vital Signs 12/13/23 09:28 Height 5 ft 8 in BP 110/60 Blood Pressure Location Lt brachial Position Sitting Pulse 55 Pulse Source Monitor Intake Visit Reasons: 1 y/r f/u with a pacer check Currency Counter Required: No Allergies No Known Allergies Allergy (Verified 12/13/23 09:29) Medication List - Last Reconciled 12/13/23 by Vinicio Camacho MD diazepam 5 mg PO BEDTIME PRN 30 days labetalol 200 mg PO BID valacyclovir 500 mg PO DAILY PRN HPI HPI Comments History of Present Illness Details Tracie comes for follow-up. She has been doing well overall. She has not had any significant lightheadedness or syncopal episode. However she notices when the pacemaker kicks in and she feels rapid heart rate at that point time. No lightheadedness, syncope. 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 She says she does not get much time to exercise for herself and as a result she has gained weight. She also noticing after a full day of work she has elevated blood pressure at nighttime. She is taking all her medications. No prolonged palpitation irregular heartbeat. No exertional chest pain or shortness of breath. She is very emotional about overall situation that she is in. [facility] Medical History HTN (hypertension) Constipation Vasovagal syncope Dyslipidemia Dyspnea Restless leg syndrome Atopic dermatitis Pacemaker Surgical History Pacemaker History of lumpectomy Family History Father HTN (hypertension) Mother Asthma Son No problems noted. Daughter No problems noted. Maternal Grandmother Breast cancer Lung cancer Maternal Grandfather Diabetes mellitus Paternal Grandmother No problems noted. 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, [employer] Current occupational exposures/hazards: No Gender identity: Female Cognitive needs: No Hearing needs: No Vision needs: No Female Reproductive History Menstrual Age of Menarche: 15 Review of Systems Const Reports no additional complaints ENT Reports dizziness Card Denies chest pain, Denies chest pain at rest, Denies chest pain with activity, Denies rapid heart rate, Denies pedal edema, Denies edema, Denies leg edema, Denies lightheadedness, Denies palpitations, Denies dyspnea, Denies dyspnea on exertion and Denies orthopnea Resp Denies cough, Denies dyspnea and Denies dyspnea on exertion GI Denies hematochezia and Denies change in stool character Musc Denies abnormal gait, Reports limited range of motion, Reports muscle cramps, Denies muscle weakness, Denies numbness, Denies radiating pain into limb, Denies stiffness and Denies tingling Neuro Denies abnormal gait, Reports dizziness, Denies numbness and Denies tingling Endo Denies palpitations Physical Exam Vital Signs: Last Vital Signs Pulse 55 12/13/23 09:28 BP 110/60 12/13/23 09:28 Const General: cooperative, healthy appearing, comfortable, no acute distress, well developed, alert, awake and well groomed Nutritional Appearance: obese Orientation/consciousness: patient oriented x3 Limitations: no limitations Neck Neck: Yes trachea midline, Yes supple and Yes no JVD Resp Effort & Inspection: normal respiratory effort Auscultation: clear to auscultation bilaterally Cardio Jugular venous distension: no JVD Palpation: normal PMI Rate: regular rate Rhythm: regular rhythm Heart sounds: S1 normal heart sound present and S2 normal heart sound present GI Auscultation: normal bowel sounds Skin General skin exam: no rashes or lesions noted Neuro General: patient oriented x3 and no focal motor deficits Extrem General: Yes no clubbing, cyanosis or edema Psych Appearance: grossly normal Office Procedures Cardiac Device Check Cardiac Device Check Details: Dual-chamber Medtronic pacemaker in place. Programmed in DDD at 50 beats per minute with rate drop response turned on. Multiple rate drop responses noted. Atrial pacing overall although 1.3%. No significant arrhythmias detected. Atrial pacing thresholds adequate and reprogrammed to enhance battery life. Ventricular pacing thresholds are stable and elevated. Atrial and ventricular sensing is adequate. Lead impedance is stable. Battery life is at about 10 years 56982-[id number] Cardiac Device Check, pacemaker dual lead Procedure code (CPT) selection complete EKG Details: EKG shows sinus bradycardia 55 beats per minute otherwise normal EKG [id number]-[id number], Complete Assessment & Plan Assessment & Plan (1) Vasovagal syncope: Comment: Malignant cardio inhibitory response. 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 Quality of life is significantly improved from that perspective. Advised to continue maintain adequate hydration. Will continue follow-up pacemaker remotely. (2) PVC (premature ventricular contraction): Code(s): I49.3 - Ventricular premature depolarization Plan: Prior history of PVC with no clear evidence of PVCs on the recent pacer telemetry. Continue labetalol therapy. Avoidance of stimulants was discussed. Stress mitigation strategies should be pursued. (3) HTN (hypertension): Code(s): I10 - Essential (primary) hypertension Plan: Hypertension, overall adequately controlled on today's exam but she is noticing elevated blood pressure at nighttime when she goes home after a whole days work. She has lot of stress and has not been able to participate in lifestyle modification. We discussed about strategies. She is interested in weight loss medications. I have directed her to your office. We discussed about stress management and participate in regular physical activity. She understands and agrees. Follow up in the clinic in 1 year's time, sooner p.r.n.. Thank you for allowing me to partake in the care Coding Level of Care Code Est Pt Level 4 (07220) Diagnoses Vasovagal syncope R55 PVC (premature ventricular contraction) I49.3 HTN (hypertension) I10 CPT Codes Cardiac Device Check - Cardiac Device 2: 01097-FY Cardiac Device Check, pacemaker dual lead ([id number]) EKG - CPT: 84905-Ufwzdkqaqgfgdeuuv, Complete ([id number])
== END 2023-12-13 10:07 | disposition home or self-care (01) ==
PROVIDERS: Visit Provider Internal Medicine Cardiovascular Disease
DX: I10 Essential (primary) hypertension (principal); I49.3 Ventricular premature depolarization; Z95.0 Presence of cardiac pacemaker; R55 Syncope and collapse; R00.1 Bradycardia, unspecified
CPT/HCPCS: 93010; 93280; 99214

== ENCOUNTER → 2023-12-13 09:26 | Outpatient (BNVA) | payer OTHER, SELFPAY | PROVIDERS: Visit Provider Internal Medicine Cardiovascular Disease | DX: R55 Syncope and collapse (principal); I49.3 Ventricular premature depolarization; I10 Essential (primary) hypertension; Z45.018 Encounter for adjustment and management of other part of cardiac pacemaker | CPT/HCPCS: 93005; 93280 ==

== ENCOUNTER → 2024-03-12 23:59 | Outpatient (BNV) | payer OTHER, SELFPAY ==
--- NOTE | 2024-03-13 13:43 | A.OFFVIS_ITS ---
Intake Visit Reasons: Remote Device Check- Medtronic Allergies No Known Allergies Allergy (Verified 12/13/23 09:29) [facility] Medical History HTN (hypertension) Constipation Vasovagal syncope Dyslipidemia Dyspnea Restless leg syndrome Atopic dermatitis Pacemaker Surgical History Pacemaker History of lumpectomy Family History Father HTN (hypertension) Mother Asthma Son No problems noted. Daughter No problems noted. Maternal Grandmother Breast cancer Lung cancer Maternal Grandfather Diabetes mellitus Paternal Grandmother No problems noted. 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 Pacemaker function is adequate [id number] Cardiac Device Interrogation, pacemaker Procedure code (CPT) selection complete Assessment & Plan Assessment & Plan (1) Pacemaker: Comment: Dual-chamber Medtronic pacemaker placed, February 2018 Code(s): Z95.0 - Presence of cardiac pacemaker Category: Medical Plan: See above Coding Level of Care Code Procedure Only Diagnoses Pacemaker Z95.0 CPT Codes Cardiac Device Check - Cardiac Device 12: [id number] Cardiac Device Interrogation, pacemaker ([id number])
== END ==
PROVIDERS: PCP Nurse Practitioner Family; Visit Provider Internal Medicine Cardiovascular Disease
DX: Z45.018 Encounter for adjustment and management of other part of cardiac pacemaker (principal)
CPT/HCPCS: 93294

== ENCOUNTER 2024-03-16 19:07 | Inpatient (IN) | payer OTHER, SELFPAY ==
--- NOTE | ~2024-03-16 | CT_ITS ---
EXAMINATION: CT ABDOMEN AND PELVIS WITHOUT CONTRAST CLINICAL INFORMATION: Right-sided abdominal pain, gallstone, elevated white blood cell count. COMPARISON: No prior CT available. Ultrasound of the right upper quadrant and appendix dated same day. TECHNIQUE: Multidetector volumetric imaging was performed from the superior aspect of the liver through the pubic symphysis. Sagittal and coronal reformatted images were obtained on the technologist's workstation. This CT examination was performed using dose optimization techniques as appropriate, variously including the following: *Automated exposure control *Adjustment of mA and/or kV according to patient size (this includes techniques or standardized protocols for targeted exams where dose is matched to indication/reason for exam; i.e. extremities or head) *Use of iterative reconstruction technique DLP: 1098 mGy-cm FINDINGS: LUNG BASES: Lung bases are clear bilaterally. Atrioventricular pacer wires noted in the heart, which is normal in size. Mildly elevated right hemidiaphragm noted. LIVER, GALLBLADDER, AND BILIARY TREE: The liver is normal in size, shape, and attenuation. No focal hepatic lesion or biliary ductal dilatation is present. The gallbladder is unremarkable with no evidence of radiopaque gallstones, gallbladder wall thickening, or obvious pericholecystic inflammatory changes. Also seen on right upper quadrant ultrasound is not well appreciated on CT. No evidence of gallbladder inflammation. PANCREAS: Unenhanced, normal in appearance. SPLEEN: Unenhanced, normal in appearance. ADRENAL GLANDS: Unremarkable. KIDNEYS AND URETERS: The kidneys are normal in size, shape, and attenuation. No hydronephrosis, hydroureter, or calculi seen. No perinephric stranding. BLADDER: Unremarkable. GASTROINTESTINAL TRACT: The appendix is inflamed and dilated, with periappendiceal stranding, and several appendicoliths within the base of the appendix. Appendiceal diameter measures approximately 1.2 cm. There is associated trace free pelvic fluid, and trace fluid surrounding the appendix. No obvious abscess or rupture. Mild retained stool present in the right hemicolon. The colon is otherwise normal in appearance as is the rectum, and small bowel. The stomach, GE junction, and duodenum appear unremarkable. ABDOMINAL WALL: Tiny umbilical fat-containing hernia. No additional abnormality. LYMPH NODES: No evidence of lymphadenopathy. VASCULAR: Unremarkable. PELVIC VISCERA: Uterus is retroflexed and anteverted, and appears mildly prominent in size. This may be secondary to the retroverted state, although underlying uterine abnormalities not excluded. Correlating with pelvic ultrasound recommended on a nonacute basis. There is a 2.6 cm dominant follicle in the left ovary. The right ovary is normal. No adnexal masses. OSSEOUS STRUCTURES: Mild degenerative changes of the lumbar spine and bilateral hip joints right greater than left. There is a transitional L5 vertebral body with the right transverse process pseudoarticulating with the sacral alae. There are sclerotic changes surrounding the synovial aspects of both SI joints, with vacuum phenomenon present, possibly representing sacroiliitis. This can also be seen with degenerative change. CT/CT abdomen pelvis wo IV con IMPRESSION: -Acute appendicitis as detailed above. No definitive rupture or abscess/complication. -Possible enlargement of the uterus, recommend pelvic ultrasound on a nonemergent basis. -Small-volume free fluid in the pelvis, likely reactive. -Atrioventricular pacer leads in the heart. -Gallstone seen on ultrasound is not well appreciated on CT. No gallbladder abnormalities. -Additional nonemergent findings as described above. Above findings were relayed to Dr. Holland via secure text at 12:30 PM, 03/17/2024. This examination was read at this time due to systemwide indeterminate and systems issues experienced [place] [facility] rendering the examination unable to be read formally until above time. Concur with preliminary report rendered by Dr. Jiménez, 03/16/2024 at 11:00 PM. Fleischner guidelines were followed.
--- NOTE | ~2024-03-16 | US_ITS ---
EXAMINATION: US ABDOMEN LIMITED CLINICAL INFORMATION: Right upper quadrant pain. COMPARISON: Previous abdominal ultrasound August 2014 TECHNIQUE: Imaging of the gallbladder and common bile duct FINDINGS: Gallbladder is normal in size. There is a 1.8 cm gallstone in the gallbladder. Gallbladder wall is normal. There is no gallbladder wall edema or pericholecystic fluid. Common bile duct is normal in caliber measuring 6 mm. US/US abdomen limited IMPRESSION: Gallstone. No evidence of cholecystitis.
--- NOTE | ~2024-03-16 | XR_ITS ---
EXAMINATION: XR CHEST CLINICAL INFORMATION: Preoperative COMPARISON: 02/05/2018 TECHNIQUE: Frontal view of the chest was obtained. FINDINGS: There is stable position of left pacemaker battery and leads over the right atrium and ventricle. Lungs are clear cardiomediastinal silhouette is normal and there is no pleural effusion XR/XR chest 1V IMPRESSION: No active cardiopulmonary
--- NOTE | ~2024-03-16 | US_ITS ---
EXAMINATION: Appendix ultrasound CLINICAL INFORMATION: Right lower quadrant pain COMPARISON: None. TECHNIQUE: Grayscale and color imaging of the appendix using a linear and curved transducer FINDINGS: Exam limited due to bowel gas and body habitus. Appendix not seen. US/US appendix IMPRESSION: Appendix is not seen.
[2024-03-16 19:41] VITALS: BP 142/78; PULSE 76; RESP 22; TEMP 36.8; O2SAT 99; BMI 42.6
--- NOTE | 2024-03-16 20:03 | ED_ITS ---
HPI - General Adult General Chief complaint: Abdominal Pain Stated complaint: severe abdominal pain, vomiting Time Seen by Provider: 03/16/24 21:04 Source: patient Mode of arrival: ambulatory Limitations: no limitations History of Present Illness ED Provider: maricruz HOOD narrative: Patient no significant past abdominal pain history woke up at 03:00 with pain in epigastric and right upper abdomen right mid abdomen got worse after having lunch today vomited multiple times no fever no chills no urinary complaint no history of similar pain in the past Related Data Previous Rx's ?Medication ?Instructions ?Recorded labetalol 200 mg tablet 200 mg PO BID #60 tabs 10/14/23 diazepam 5 mg tablet 5 mg PO BEDTIME PRN insomnia 30 01/30/24 days #30 tabs valacyclovir 500 mg tablet 500 mg PO DAILY PRN oral #60 tabs 01/30/24 semaglutide (weight loss) 0.5 0.5 mg (0.5 mL) subcut QWEEK 30 02/26/24 mg/0.5 mL subcutaneous pen injector days #2.5 mL Allergies Allergy/AdvReac Type Severity Reaction Status Date / Time No Known Allergies Allergy Verified 03/16/24 19:45 Review of Systems 2 Review of Systems: Yes all other systems are reviewed and are negative PMFSH Past Medical History Medical History HTN (hypertension) Constipation Vasovagal syncope Dyslipidemia Dyspnea Restless leg syndrome Atopic dermatitis Pacemaker Surgical History Pacemaker History of lumpectomy Family History Family History Father HTN (hypertension) Mother Asthma Son No problems noted. Daughter No problems noted. Maternal Grandmother Breast cancer Lung cancer Maternal Grandfather Diabetes mellitus Paternal Grandmother No problems noted. Paternal Grandfather HTN (hypertension) Diabetes mellitus Heart disease Social History Social History Household Members: Spouse and Children Household Members Other:: children 11 and 12yo Housing: House Alcohol intake: current Alcohol intake frequency: holidays/special occasions only Alcohol type: wine Patient Tobacco Use Status: Former Tobacco user Tobacco use type: Cigarette Years Smoked: 6 years e-Cigarette/Vaping Use: Never Used Second Hand Smoke Exposure: No Use of substances other than those prescribed or required for medical reasons: No Advance Directives: No Advance Directives Information Provided: No Do you have a plan to hurt others: No Plan Patient : No service: No Current occupational status: employed 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 Oriented X3. In moderate distress. Obese Eyes: PERRLA, No Nystagmus ENT: Pharynx normal. Oral Mucosa moist Neck: Normal inspection. Neck supple. CVS: Normal heart rate and rhythm. Pulses normal. Respiratory: No respiratory distress. Equal air entry bilateral, no wheezing/rales/rhonchi Abdomen: Soft and right upper quadrant deep tenderness tenderness right mid abdomen McBurney signs negative Bowel sounds are present, no mass palpable, no CVA tenderness Skin: Skin warm and dry. Normal skin color. Normal skin turgor. Extremities: No lower extremity edema. No calf tenderness Neuro: Oriented X 3. Course Course Course Narrative: RME performed by Liz Suárez PA-C. Patient is a 39 year old assigned female at presenting to the emergency department with right upper quadrant abdominal pain. Detailed physical exam and review of systems are deferred to the access clinician. Labs, imaging, and swabs ordered. Patient placed back in the waiting room pending room availability and results. Medications Administered Generic Name Dose Route Start Last Admin Trade Name Freq PRN Reason Stop Dose Admin Sodium Chloride 1,000 mls @ 100 mls/hr 03/16/24 23:45 03/17/24 01:00 Ns IVCONT 100 mls/hr .Q10H ETHEL Administration Piperacillin Sod/Tazobactam 50 mls @ 100 mls/hr 03/16/24 23:45 03/17/24 01:01 Sod 3.375 gm/ Sodium Chloride IV Not Given Q6H ETHEL Morphine Sulfate 3 mg 03/16/24 23:46 03/17/24 01:00 Morphine Sulfate 4 Mg/Ml Cartridge IVPUSH 3 mg Q3H PRN Administration Pain, Severe (Pain Scale 7-10) Protocol Sodium Chloride 3 ml 03/17/24 00:00 03/17/24 01:14 0.9 % Sodium Chloride Flush 3 Ml Syringe IVFLUSH 3 ml QSHIFT ETHEL Administration Discontinued Medications Generic Name Dose Route Start Last Admin Trade Name Freq PRN Reason Stop Dose Admin Sodium Chloride 1,000 mls @ 999 mls/hr 03/16/24 21:22 03/16/24 21:33 Ns IV 03/16/24 22:22 999 mls/hr .Q1H1M ONE Administration Piperacillin Sod/Tazobactam 50 mls @ 100 mls/hr 03/16/24 23:32 03/17/24 00:59 Sod 3.375 gm/ Sodium Chloride IV 03/17/24 00:01 100 mls/hr ONCE ONE Administration Ketorolac Tromethamine 30 mg 03/16/24 22:12 03/16/24 22:15 Ketorolac Tromethamine 30 Mg/Ml Vial IVPUSH 03/16/24 22:13 30 mg ONCE ONE Administration Morphine Sulfate 4 mg 03/16/24 21:22 03/16/24 21:32 Morphine Sulfate 4 Mg/Ml Cartridge IVPUSH 03/16/24 21:23 4 mg ONCE ONE Administration Protocol Ondansetron HCl 4 mg 03/16/24 21:22 03/16/24 21:32 Ondansetron Hcl 4 Mg/2 Ml Vial IVPUSH 03/16/24 21:23 4 mg ONCE ONE Administration Medical Decision Making Medical Decision Making [facility] Narrative: Patient has right-sided pain ultrasound showed gallstone Patel sign is negative patient does have deep tenderness right mid abdomen CT scan showed acute appendicitis will admit patient for appendectomy case discussed with Dr. Holland surgeon will take the patient to the OR in a.m. Differential Diagnosis Differential Diagnoses: The differential diagnosis associated with the presentation includes Cholecystitis/cholecystitis cholelithiasis/kidney infection/kidney stone Admission/Observation Consideration of admission/observation: Escalation of care including admission/observation considered Consult Healthcare Provider Management of the patient was discussed with: Hospitalist Lab Data [facility] Lab Attestation statement: I reviewed the patient's lab results. 03/16/24 20:21 03/16/24 20:21 Labs: Lab Results 03/16/24 Range/Units 20:21 WBC 18.5 H (4.8-10.8) X10*3/uL RBC 4.76 (4.20-5.50) X10*6/uL Hgb 14.8 (12.0-16.0) g/dl Hct 42.2 (37.0-47.0) % MCV 88.7 (80.0-98.0) fL MCH 31.1 (27.0-33.0) pg MCHC 35.1 H (31.0-35.0) g/dl RDW 13.2 (11.0-16.0) % Plt Count 321 (160-400) X10*3/uL MPV 9.0 L (9.4-12.3) fL Immature Gran % (Auto) 0.4 (0.0-0.4) % Neut % (Auto) 84.1 H (45-73) % Lymph % (Auto) 9.3 L (20-40) % [place] % (Auto) 4.7 (2-11) % Eos % (Auto) 1.2 (0-4) % Baso % (Auto) 0.3 (0-2) % Lymph # (Auto) 1.7 (1.2-4.9) X10*3/uL [place] # (Auto) 0.9 (0.1-1.2) X10*3/uL Eos # (Auto) 0.2 (0.0-0.4) X10*3/uL Baso # (Auto) 0.1 (0.0-0.2) X10*3/uL Abs Immat Gran (auto) 0.07 H (0.00-0.03) X10*3/uL Absolute Neuts (auto) 15.5 H (2.0-8.3) x10*3/uL Absolute Nucleated RBC 0.000 (0.0-0.012) X10*3/uL Nucleated RBC % (auto) 0.0 (0.0-0.2) /100WBC Sodium 140 (135-145) mmol/L Potassium 3.7 (3.3-5.1) mmol/L Chloride 105 (96-108) mmol/L Carbon Dioxide 23 (22-29) mmol/L Anion Gap 16 (12-20) BUN 11 (9-16) mg/dL Creatinine 0.82 (0.5-1.4) mg/dL Estim Creat Clear Calc 135.2 Estimated GFR > 60 Random Glucose 103 (60-115) mg/dL Calcium 9.8 D (8.4-10.2) mg/dL Total Bilirubin 0.5 (0.0-1.0) mg/dL AST 19 (5-31) U/L ALT 22 (0-31) U/L Alkaline Phosphatase 56 (39-117) U/L Total Protein 7.6 (6.5-8.0) g/dL Albumin 4.4 (3.5-5.0) g/dL Lipase 22 (8-78) U/L Beta HCG, Quant < 2 mIU/mL Urine Color Yellow Urine Appearance Clear Urine pH 7.0 (5.0-9.0) Ur Specific [place] 1.025 (1.005-1.025) Urine Protein Negative (Neg-Trace) mg/dL Urine Glucose (UA) Negative (Negative) mg/dL Urine Ketones Trace (Negative) mg/dL Urine Blood Negative (Negative) Urine Nitrite Negative (Negative) Ur Leukocyte Esterase Negative (Negative) Independent Interpretation I performed an independent interpretation of an: EKG and CT Scan Radiology Impression Discussion of test interpretation with radiology: I have reviewed the radiologist's reading. Radiologist Impression: Acute uncomplicated appendicitis Discharge Plan Discharge Clinical Impression: Acute appendicitis Patient Disposition: Admitted As Inpatient
[2024-03-16 20:27] LABS: MANUAL DIFF FLAG NO
[2024-03-16 20:28] LABS: Basophils Absolute Auto 0.1 X10*3/uL (0.0-0.2); Basophils Percent Auto 0.3 % (0-2); Eosinophils Absolute Auto 0.2 X10*3/uL (0.0-0.4); Eosinophils Percent Auto 1.2 % (0-4); Hematocrit 42.2 % (37.0-47.0); Hemoglobin 14.8 g/dl (12.0-16.0); Imm Gran Abs Auto 0.07 X10*3/uL (0.00-0.03); Imm Gran Pct Auto 0.4 % (0.0-0.4); Lymphocytes Absolute Auto 1.7 X10*3/uL (1.2-4.9); Lymphocytes Percent Auto 9.3 % (20-40); Mean Corpuscular HGB Conc 35.1 g/dl (31.0-35.0); Mean Corpuscular Hemoglobin 31.1 pg (27.0-33.0); Mean Corpuscular Volume 88.7 fL (80.0-98.0); Monocytes Absolute Auto 0.9 X10*3/uL (0.1-1.2); Monocytes Percent Auto 4.7 % (2-11); Neutrophils Absolute Auto 15.5 x10*3/uL (2.0-8.3); Neutrophils Percent Auto 84.1 % (45-73); Platelet Count 321 X10*3/uL (160-400); Red Blood Count 4.76 X10*6/uL (4.20-5.50); Red Cell Distribution Width 13.2 % (11.0-16.0); White Blood Count 18.5 X10*3/uL (4.8-10.8)
[2024-03-16 20:30] LABS: Appearance Urine Clear; Color Urine Yellow; Glucose Urine UA Negative (Negative); Leukocyte Esterase Urine Negative (Negative); Nitrite Urine Negative (Negative); Specific Gravity - Urine 1.025 (1.005-1.025); Urine Blood Negative (Negative); Urine Ketones Trace mg/dL (Negative); Urine Protein Negative (Neg-Trace)
[2024-03-16 20:42] LABS: Alanine Aminotransferase 22 U/L (0-31); Albumin Level 4.4 g/dL (3.5-5.0); Alkaline Phosphatase 56 U/L (39-117); Anion Gap 16 (12-20); Aspartate Amino Transferase 19 U/L (5-31); Bilirubin Total 0.5 mg/dL (0.0-1.0); Blood Urea Nitrogen 11 mg/dL (9-16); Calcium 9.8 mg/dL (8.4-10.2); Carbon Dioxide 23 mmol/L (22-29); Chloride 105 mmol/L (96-108); Creatinine Clr Calc Pharmacy 135.2; Estimated Glomerular Filt Rate > 60; Glucose Random 103 mg/dL (60-115); Lipase 22 U/L (8-78); Potassium 3.7 mmol/L (3.3-5.1); Sodium 140 mmol/L (135-145); Total Protein 7.6 g/dL (6.5-8.0)
[2024-03-16 20:51] LABS: HCG Quantitative < 2 mIU/mL
[2024-03-16 21:32] VITALS: RESP 16
[2024-03-16] MEDS: ondansetron HCL 4 MG/2 ML VIAL IVPUSH (21:32)
[2024-03-16] MEDS: Morphine Sulfate 4 MG/ML CARTRIDGE IVPUSH (21:32)
[2024-03-16] MEDS: 0.9 % Sodium Chloride 1,000 ML 999 ML IV (21:33)
[2024-03-16] MEDS: Ketorolac Tromethamine 30 MG/ML VIAL IVPUSH (22:15)
[2024-03-16 22:37] LABS: Lactic Acid 1.1 mmol/L (0.5-2.0)
[2024-03-17] VITALS (23 sets, daily range): BP systolic 105–159; BP diastolic 49–90; PULSE 76–99; RESP 15–20; TEMP 35.8–37; O2SAT 90–99; BMI 42.5
--- NOTE | 2024-03-17 | ECG_ITS ---
Test Reason : hx of pacemaker placement Blood Pressure : / mmHG Vent. Rate : 071 BPM Atrial Rate : 071 BPM P-R Int : 158 ms QRS Dur : 100 ms QT Int : 392 ms P-R-T Axes : 029 061 018 degrees QTc Int : 425 ms Normal sinus rhythm Incomplete right bundle branch block Borderline ECG When compared with ECG of 13-MAR-2021 20:53, No significant change was found Referred By: Rafaela Zamora Electronically Signed By:PREETI ROSE
[2024-03-17] MEDS: Piperacillin Sodium/Tazobactam 3.375 GM in 0.9 % Sodium Chloride 50 ML IV ×4 (00:59→23:52)
[2024-03-17] MEDS: 0.9 % Sodium Chloride 1,000 ML 100 ML IVCONT ×2 (01:00→17:26)
[2024-03-17] MEDS: Morphine Sulfate 4 MG/ML CARTRIDGE 3 MG IVPUSH ×4 (01:00→11:24)
[2024-03-17] MEDS: 0.9 % Sodium Chloride Flush 3 ML SYRINGE IVFLUSH ×2 (01:14→19:19)
--- NOTE | 2024-03-17 02:13 | PC.NURSE ---
Dr. Musa informed of patient's BP 105/51, P 76. Per MD VILLAGOMEZ to hold Labetalol.
--- NOTE | 2024-03-17 03:29 | P.CONHOSP_ITS ---
History of Present Illness Data of Consult Service Date: 03/17/24 Requesting physician: Rafaela Zamora Primary Care Provider: YESSI Pascual- HPI Reason for consult: On labetalol, pacemaker Ellen Moore is a very pleasant 39 years old woman with past medical history significant for pacemaker placed in 2018 after vasovagal syncope followed by Dr. Epstein every 6 month and essential hypertension on labetalol presents to the ED complaining of right-sided abdominal pain that started yesterday. Yesterday morning patient woke up as usual and felt unwell. She went to work and was doing essentially okay but after having lunch she stared to vomit (vomited once). She decidded to go home where she had multiple episodes of bilious nonbloody vomiting. She mentioned that the pain is crampy in nature (like giving ). The pain started in the pelvic region and was radiating to the right lower quadrant and right back. Denies associated fever, acute urinary changes, chills or diarrhea. She does have history of constipation and last bowel movement was yesterday before current symptoms but small quantity. The patient did not report any acute cardiopulmonary symptoms. Patient denied history of abdominal surgeries. She started to use injections of Wegovy for weight loss about 6 weeks ago. Patient did not report alcohol abuse, tobacco smoking or illicit drug use. In the ED, she was found to have stable vital signs. Blood workup was remarkable for leukocytosis of 18.5. There is no lactic acidosis. There is no anemia and platelets are normal. There are no electrolyte imbalances and renal function is normal. LFTs are normal as well. UA showed no evidence of urinary tract infection. Patient underwent abdominal pelvis CT scan. According to ED provider patient was found to have acute uncomplicated appendicitis. Patient also underwent an abdominal + appendix ultrasounds but official results have not been posted. ED tx: NS 1 L bolus, morphine 4 mg IV, Zofran 4 mg IV Toradol 30 mg IV, Zosyn 3.375 g IV Review of Systems 2 Review of Systems: All 12 systems were reviewed and normal except as noted in HPI. [facility] Medical History HTN (hypertension) Constipation Vasovagal syncope Dyslipidemia Dyspnea Restless leg syndrome Atopic dermatitis Pacemaker Family History Father HTN (hypertension) Mother Asthma Son No problems noted. Daughter No problems noted. Maternal Grandmother Breast cancer Lung cancer Maternal Grandfather Diabetes mellitus Paternal Grandmother No problems noted. Paternal Grandfather HTN (hypertension) Diabetes mellitus Heart disease Surgical History Pacemaker History of lumpectomy Social History Household Members: Family Household Members Other:: children 11 and 12yo Housing: House Do you presently have visiting nurse or other home services: No Alcohol intake: current Alcohol intake frequency: holidays/special occasions only Alcohol type: wine Patient Tobacco Use Status: Former Tobacco user Tobacco use type: Cigarette Years Smoked: 6 years Smoked in Last 30 Days: No e-Cigarette/Vaping Use: Never Used Patient Interested in Nicotine Replacement: No Patient Given Instructions on How to Stop Smoking: No Second Hand Smoke Exposure: No Use of substances other than those prescribed or required for medical reasons: No Have you been hit, kicked, punched, or otherwise hurt by someone within the past year? 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, [employer] Current occupational exposures/hazards: No Gender identity: Female Cognitive needs: No Hearing needs: No Vision needs: No Meds Allergies Allergy/AdvReac Type Severity Reaction Status Date / Time No Known Allergies Allergy Verified 03/16/24 19:45 Active Medications: Current Medications Acetaminophen (Acetaminophen 325 Mg Tablet) 650 mg PO Q6H PRN PRN Reason: Fever Sodium Chloride (Ns) 1,000 mls @ 100 mls/hr IVCONT .Q10H [facility] Last Admin: 03/17/24 01:00 Dose: 100 mls/hr Piperacillin Sod/Tazobactam (Sod 3.375 gm/ Sodium Chloride) 50 mls @ 100 mls/hr IV Q6H [facility] Last Admin: 03/17/24 01:01 Dose: Not Given Morphine Sulfate (Morphine Sulfate 4 Mg/Ml Cartridge) 3 mg IVPUSH Q3H PRN; Protocol PRN Reason: Pain, Severe (Pain Scale 7-10) Last Admin: 03/17/24 01:00 Dose: 3 mg Ondansetron HCl (Ondansetron Hcl 4 Mg/2 Ml Vial) 4 mg IVPUSH Q6H PRN PRN Reason: Nausea and Vomiting Sodium Chloride (0.9 % Sodium Chloride Flush 3 Ml Syringe) 3 ml IVFLUSH QSHIFT [facility] Last Admin: 03/17/24 01:14 Dose: 3 ml Physical Exam 2 Vital Signs and Narrative: Vital Signs: Last Vital Signs Temp 98.3 F 03/17/24 02:00 Pulse 79 03/17/24 02:14 Resp 16 03/17/24 02:00 BP 105/51 L 03/17/24 02:14 Pulse Ox 98 03/17/24 02:00 O2 Del Method Room Air 03/17/24 02:00 BMI result Body Mass Index 42.5 Constitutional - Awake and Alert, No apparent distress. Pleasant. Cooperative. Obese. HEENT - Pupils equally round. Dry oral mucosa. Heart - S1S2, RRR. Lungs - Normal lung expansion, Normal respiratory effort, No respiratory distress, CTA bilaterally Abdomen - Nondistended. RUQ tenderness with positive guarding. No rebound. Extremities - no calf tenderness bilaterally, no swelling Musculoskeletal - Normal inspection, normal ROM Skin - Warm/Dry Neurological - Alert & oriented x3. No facial droop. No focal weakness grossly noted. Normal speech. Psychological - Appropriate affect Results Labs 03/16/24 20:21 03/16/24 20:21 Labs: Laboratory Results - last 24 hr 03/16/24 03/16/24 20:21 Unknown MCV 88.7 MCH 31.1 MCHC 35.1 H RDW 13.2 Plt Count 321 MPV 9.0 L Immature Gran % (Auto) 0.4 Neut % (Auto) 84.1 H Lymph % (Auto) 9.3 L [place] % (Auto) 4.7 Eos % (Auto) 1.2 Baso % (Auto) 0.3 Lymph # (Auto) 1.7 [place] # (Auto) 0.9 Eos # (Auto) 0.2 Baso # (Auto) 0.1 Abs Immat Gran (auto) 0.07 H Absolute Neuts (auto) 15.5 H Absolute Nucleated RBC 0.000 Nucleated RBC % (auto) 0.0 Anion Gap 16 Estim Creat Clear Calc 135.2 Estimated GFR > 60 Random Glucose 103 Lactic Acid 1.1 Calcium 9.8 D Total Bilirubin 0.5 AST 19 ALT 22 Alkaline Phosphatase 56 Total Protein 7.6 Albumin 4.4 Lipase 22 Beta HCG, Quant < 2 Urine Color Yellow Urine Appearance Clear Urine pH 7.0 Ur Specific [place] 1.025 Urine Protein Negative Urine Glucose (UA) Negative Urine Ketones Trace Urine Blood Negative Urine Nitrite Negative Ur Leukocyte Esterase Negative ECG Attestation: I personally reviewed and interpreted this ECG as follows: (Normal sinus rhythm with a heart rate of 71 bpm. Incomplete RBBB. No acute ischemic changes.) ECG interpretation date: 03/17/24 ECG interpretation time: 06:44 Assessment and Plan (1) Acute appendicitis: Qualifiers: Acute appendicitis type: unspecified acute appendicitis type Qualified Code(s): K35.80 - Unspecified acute appendicitis Status: Acute (2) HTN (hypertension): Qualifiers: Hypertension type: primary hypertension Qualified Code(s): I10 - Essential (primary) hypertension Status: Acute Plan Ellen Moore is 39 y/o woman presents with: * Acute appendicitis, uncomplicated. Management by surgical service. RCRI = 0 (3.9% risk of perioperative cardiac events). If patient needs emergent surgery please proceed as planned. Precautions with anesthesia to be considered as the patient is high risk for aspiration -using Wegovy injection over the last 6 weeks (last dose was yesterday). This medication causes delayed gastric emptying. * SIRS criteria secondary to above. No severe sepsis. On IV antibiotics and IV fluids. Continue to monitor WBC count and vital signs. * Presence of cardiac pacemaker. Follow as an outpatient by Dr. Camacho, last visit 03/13/24 - Adequate pacemaker function. ECG showed NSR, IRBBB, no ischemia. CXR ordered. * Obesity, BMI 42.5 kg/m2. Weight loss on Wegovy injections (first dose 6 weeks ago, last dose was yesterday).
[2024-03-17] MEDS: Ketorolac Tromethamine 30 MG/ML VIAL IVPUSH ×3 (03:51→19:17)
--- NOTE | 2024-03-17 07:22 | PM.HPGS ---
History of Present Illness History of Present Illness Date of Service: 03/19/24 Chief complaint: acute appendicitis Narrative: Ellen Moore is a 39 year old female admitted last night for abdominal pain. He describes having periumbilical pain and right-sided abdominal pain starting 1 day prior to admission. She says that this has persisted yesterday. She then started to have a lot of nausea and vomiting in the afternoon so she came to the emergency room last night. Her CT scan showed acute appendicitis. She has had no similar episodes in the past She has a known history of vasovagal symptoms and had a pacemaker done a few years ago. She has been on labetalol as well because of hypertension She is on Wegovy for weight loss. Review of Systems Constitutional: Constitutional: Denies chills and Denies fever(s) Cardiovascular: Cardiovascular: Denies chest pain, Denies dyspnea and Denies dyspnea on exertion Respiratory: Respiratory: Denies cough, Denies dyspnea and Denies dyspnea on exertion Gastrointestinal: Gastrointestinal: Denies hematochezia and Denies change in bowel habits Genitourinary: Genitourinary: Denies hematuria Musculoskeletal: Musculoskeletal: Denies back pain and Denies limited range of motion Neurologic: Denies focal weakness and Denies convulsions Psychiatric: Psychiatric: Denies depression and Denies mood swings PMFSH Past Medical History Medical History (Updated 03/17/24 @ 07:24 by Redd Holland MD) Morbid obesity HTN (hypertension) Constipation Vasovagal syncope Dyslipidemia Dyspnea Restless leg syndrome Atopic dermatitis Pacemaker Family History Family History Father HTN (hypertension) Mother Asthma Son No problems noted. Daughter No problems noted. Maternal Grandmother Breast cancer Lung cancer Maternal Grandfather Diabetes mellitus Paternal Grandmother No problems noted. Paternal Grandfather HTN (hypertension) Diabetes mellitus Heart disease Surgical History Surgical History (Updated 03/18/24 @ 07:56 by Holli Grace PA-C) Pacemaker History of lumpectomy Social History Social History Household Members: Family Household Members Other:: children 11 and 12yo Housing: House Do you presently have visiting nurse or other home services: No Alcohol intake: current Alcohol intake frequency: holidays/special occasions only Alcohol type: wine Comment: COUNT CORRECT Patient Tobacco Use Status: Former Tobacco user Tobacco use type: Cigarette Years Smoked: 6 years Smoked in Last 30 Days: No e-Cigarette/Vaping Use: Never Used Patient Interested in Nicotine Replacement: No Patient Given Instructions on How to Stop Smoking: No Second Hand Smoke Exposure: No Use of substances other than those prescribed or required for medical reasons: No Currently Displaying Signs/Symptoms of Drug Intoxication Withdrawal: No Have you been hit, kicked, punched, or otherwise hurt by someone within the past year? If so, by whom?: No Do you feel safe in your current relationship?: Yes Is there a partner from a previous relationship who is making you feel unsafe now?: No Are you made to feel afraid or neglected: No Are you DNR?: No Advance Directives: No Advance Directives Information Provided: No Do you have a plan to hurt others: No Plan Recently lost weight without trying: No How much weight loss: Not applicable Eating poorly because of decreased appetite: No Nutrition screen score: 0 Nutrition Risks: No Nutritional Risk Patient : No : No Poor oral hygiene: No service: No Current occupational status: employed 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, [employer] Current occupational exposures/hazards: No Gender identity: Female Cognitive needs: No Hearing needs: No Vision needs: No Meds Allergies Allergy/AdvReac Type Severity Reaction Status Date / Time No Known Allergies Allergy Verified 03/16/24 19:45 Active Medications: Current Medications Acetaminophen (Acetaminophen 325 Mg Tablet) 650 mg PO Q6H PRN PRN Reason: Fever Sodium Chloride (Ns) 1,000 mls @ 100 mls/hr IVCONT .Q10H [facility] Last Infusion: 03/17/24 05:49 Dose: 100 mls/hr Piperacillin Sod/Tazobactam (Sod 3.375 gm/ Sodium Chloride) 50 mls @ 100 mls/hr IV Q6H [facility] Last Infusion: 03/17/24 05:49 Dose: Infused Ketorolac Tromethamine (Ketorolac Tromethamine 30 Mg/Ml Vial) 30 mg IVPUSH Q6H PRN PRN Reason: Pain, Severe (Pain Scale 7-10) Last Admin: 03/17/24 03:51 Dose: 30 mg Labetalol HCl (Labetalol Hcl 200 Mg Tablet) 200 mg PO BID ETHEL; Protocol Morphine Sulfate (Morphine Sulfate 4 Mg/Ml Cartridge) 3 mg IVPUSH Q3H PRN; Protocol PRN Reason: Pain, Severe (Pain Scale 7-10) Last Admin: 03/17/24 03:32 Dose: 3 mg Ondansetron HCl (Ondansetron Hcl 4 Mg/2 Ml Vial) 4 mg IVPUSH Q6H PRN PRN Reason: Nausea and Vomiting Sodium Chloride (0.9 % Sodium Chloride Flush 3 Ml Syringe) 3 ml IVFLUSH QSHIFT [facility] Last Admin: 03/17/24 06:57 Dose: Not Given Home Medications ?Medication ?Instructions ?Recorded ?Confirmed ?Last Taken ?Type semaglutide (weight loss) 0.5 0.5 mg subcut MO@0900 03/17/24 03/17/24 03/16/24 History mg/0.5 mL subcutaneous pen injector Physical Exam Vital Signs: Vital Signs: Last Vital Signs Temp 97.5 F 03/17/24 07:17 Pulse 76 03/17/24 07:17 Resp 16 03/17/24 07:17 BP 108/55 L 03/17/24 07:17 Pulse Ox 96 03/17/24 07:17 O2 Del Method Room Air 03/17/24 07:17 BMI result Body Mass Index 42.5 Const: Other: Morbidly obese General: no acute distress Resp: Effort & Inspection: normal respiratory effort Cardio: Rate: regular rate GI: Palpation (GI): Soft to palpation, not firm, Tenderness to palpation present (GI) (Tendon right side of the abdomen) and no guarding Results Results Labs: Short CBC 03/16/24 Range/Units 20:21 WBC 18.5 H (4.8-10.8) X10*3/uL Hgb 14.8 (12.0-16.0) g/dl Hct 42.2 (37.0-47.0) % Plt Count 321 (160-400) X10*3/uL BMP 03/16/24 20:21 Sodium 140 Potassium 3.7 Chloride 105 Carbon Dioxide 23 BUN 11 Creatinine 0.82 Calcium 9.8 D Liver Function 03/16/24 Range/Units 20:21 Total Bilirubin 0.5 (0.0-1.0) mg/dL AST 19 (5-31) U/L ALT 22 (0-31) U/L Alkaline Phosphatase 56 (39-117) U/L Albumin 4.4 (3.5-5.0) g/dL Urine 03/16/24 Range/Units 20:21 Urine Color Yellow Urine Appearance Clear Urine pH 7.0 (5.0-9.0) Ur Specific [place] 1.025 (1.005-1.025) Urine Protein Negative (Neg-Trace) mg/dL Urine Glucose (UA) Negative (Negative) mg/dL Abdomen CT scan report/results: image reviewed CT scan - pelvis: image reviewed Assessment and Plan (1) Acute appendicitis: Qualifiers: Acute appendicitis type: unspecified acute appendicitis type Qualified Code(s): K35.80 - Unspecified acute appendicitis Status: Acute She has had right-sided abdominal pain the CT scan showing acute appendicitis. The official report is not on the electronic health record yet. There was note of an appendicolith. I explained to her it will be best to proceed with appendectomy. I explained the technique of laparoscopic appendectomy and possible conversion to open. I reviewed the risks including but not limited to bleeding, infections, injury to other organs including bowel and the urinary tract, as well as the benefits and alternatives. She understands that with her morbid obesity as well as her other medical issues, she has higher perioperative risks than average. I have asked the hospitalist service to see her preoperatively I will inform Dr. Camacho her music typographer of the plans as well Her was with her during the discussion. Quality Stroke Does the patient have a stroke diagnosis?: No VTE Prior VTE?: No VTE Risk Level:: Medical - low VTE Device Contraindication: N/A - Device Ordered VTE Drug Contraindication: Treatment Not Indicated Procedures Date of Service Date of Service: 03/19/24
--- NOTE | 2024-03-17 08:23 | PHA.MEDREC ---
Pharmacy Consult ? Medication Reconciliation Pharmacy has completed the medication reconciliation. Confirmed meds with patient. She gets Wegovy once weekly on Mondays and she said she was all set with this weeks dose.
--- NOTE | 2024-03-17 09:28 | MHC.CM.PN ---
CM MET WITH PT AT BEDSIDE WITH SPOU[facility]. 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 +HCP PCP TERRY JACINTO DP: HOME, NO SERVICES ANTICIPATED IS THE GOAL. [facility] WILL TRANSPORT HOME. CM WILL CONTINUE TO FOLLOW FOR ANY CHANGE IN DC PLAN/NEEDS.
[2024-03-17] MEDS: ondansetron HCL 4 MG/2 ML VIAL IVPUSH (10:14)
--- NOTE | 2024-03-17 11:27 | P.CONAN_ITS ---
HPI - Anesthesia Eval Anesthesia Pre-Procedure Meds If yes to any meds - educate patient: Pt education - increased risk of asp iration and/or euvolemic DKA PMFSH Active Problems Active Problems: All Active Problems Morbid obesity (Acute) Acute appendicitis (Acute) Dyslipidemia (Acute) Obesity (Acute) Eyelid lesion, benign (Acute) Physical exam (Acute) Encounter for annual routine gynecological examination (Acute) Cervicalgia (Acute) Tension type headache (Acute) PVC (premature ventricular contraction) (Acute) Physical exam (Acute) HTN (hypertension) (Acute) Oral herpes (Acute) Pacemaker (Acute) Vasovagal syncope (Acute) Insomnia (Acute) Physical exam (Acute) Past Medical History Medical History (Updated 03/17/24 @ 07:24 by Redd Holland MD) Morbid obesity HTN (hypertension) Constipation Vasovagal syncope Dyslipidemia Dyspnea Restless leg syndrome Atopic dermatitis Pacemaker Family History Family History Father HTN (hypertension) Mother Asthma Son No problems noted. Daughter No problems noted. Maternal Grandmother Breast cancer Lung cancer Maternal Grandfather Diabetes mellitus Paternal Grandmother No problems noted. Paternal Grandfather HTN (hypertension) Diabetes mellitus Heart disease Family history of problems with anesthesia: No Surgical History Surgical History Pacemaker History of lumpectomy History of Problems with Anesthesia: No Social History Social History Household Members: Family Household Members Other:: children 11 and 12yo Housing: House Do you presently have visiting nurse or other home services: No Alcohol intake: current Alcohol intake frequency: holidays/special occasions only Alcohol type: wine Patient Tobacco Use Status: Former Tobacco user Tobacco use type: Cigarette Years Smoked: 6 years Smoked in Last 30 Days: No e-Cigarette/Vaping Use: Never Used Patient Interested in Nicotine Replacement: No Patient Given Instructions on How to Stop Smoking: No Second Hand Smoke Exposure: No Use of substances other than those prescribed or required for medical reasons: No Currently Displaying Signs/Symptoms of Drug Intoxication Withdrawal: No Have you been hit, kicked, punched, or otherwise hurt by someone within the past year? If so, by whom?: No Do you feel safe in your current relationship?: Yes Is there a partner from a previous relationship who is making you feel unsafe now?: No Are you made to feel afraid or neglected: No Are you DNR?: No Advance Directives: No Advance Directives Information Provided: No Do you have a plan to hurt others: No Plan Recently lost weight without trying: No How much weight loss: Not applicable Eating poorly because of decreased appetite: No Nutrition screen score: 0 Nutrition Risks: No Nutritional Risk Patient : No : No Poor oral hygiene: No service: No Current occupational status: employed 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 Current occupational exposures/hazards: No Gender identity: Female Cognitive needs: No Hearing needs: No Vision needs: No Meds Allergies Allergy/AdvReac Type Severity Reaction Status Date / Time No Known Allergies Allergy Verified 03/16/24 19:45 Active Medications: Current Medications Acetaminophen (Acetaminophen 325 Mg Tablet) 650 mg PO Q6H PRN PRN Reason: Fever Fentanyl (Fentanyl Citrate/Pf 100 Mcg/2 Ml Vial) 25 mcg IVPUSH Q5M PRN; Protocol PRN Reason: Pain, Moderate(Pain Scale 4-6) Stop: 03/17/24 17:26 Hydromorphone HCl (Hydromorphone Hcl 0.5 Mg/0.5 Ml Syringe) 0.5 mg IVPUSH Q5M PRN; Protocol PRN Reason: Pain, Severe (Pain Scale 7-10) Stop: 03/17/24 17:26 Sodium Chloride (Ns) 1,000 mls @ 100 mls/hr IVCONT .Q10H [facility] Last Admin: 03/17/24 10:53 Dose: Not Given Piperacillin Sod/Tazobactam (Sod 3.375 gm/ Sodium Chloride) 50 mls @ 100 mls/hr IV Q6H [facility] Last Infusion: 03/17/24 05:49 Dose: Infused Ketorolac Tromethamine (Ketorolac Tromethamine 30 Mg/Ml Vial) 30 mg IVPUSH Q6H PRN PRN Reason: Pain, Severe (Pain Scale 7-10) Last Admin: 03/17/24 03:51 Dose: 30 mg Ketorolac Tromethamine (Ketorolac Tromethamine 30 Mg/Ml Vial) 30 mg IVPUSH ONCE ONE Stop: 03/17/24 11:26 Labetalol HCl (Labetalol Hcl 200 Mg Tablet) 200 mg PO BID [facility]; Protocol Last Admin: 03/17/24 07:33 Dose: Not Given Morphine Sulfate (Morphine Sulfate 4 Mg/Ml Cartridge) 3 mg IVPUSH Q3H PRN; Protocol PRN Reason: Pain, Severe (Pain Scale 7-10) Last Admin: 03/17/24 07:32 Dose: 3 mg Ondansetron HCl (Ondansetron Hcl 4 Mg/2 Ml Vial) 4 mg IVPUSH Q6H PRN PRN Reason: Nausea and Vomiting Last Admin: 03/17/24 10:14 Dose: 4 mg Ondansetron HCl (Ondansetron Hcl 4 Mg/2 Ml Vial) 4 mg IVPUSH ONCE PRN PRN Reason: Nausea and Vomiting Stop: 03/17/24 17:26 Sodium Chloride (0.9 % Sodium Chloride Flush 3 Ml Syringe) [facility] Last Admin: 03/17/24 06:57 Dose: Not Given Home Medications ?Medication ?Instructions ?Recorded ?Confirmed ?Last Taken ?Type semaglutide (weight loss) 0.5 0.5 mg subcut MO@0900 03/17/24 03/17/24 03/16/24 History mg/0.5 mL subcutaneous pen injector Exam Height,Weight and Vital Signs: Height 5 ft 9 in Weight 130.5 kg Last Vital Signs Temp 98.6 F 03/17/24 11:07 Pulse 82 03/17/24 11:07 Resp 15 03/17/24 11:07 BP 122/70 03/17/24 11:07 Pulse Ox 97 03/17/24 11:07 O2 Del Method Room Air 03/17/24 11:07 Pertinent Lab Results Pertinent Lab Results: Laboratory Tests 03/16/24 03/16/24 03/17/24 20:21 Unknown 09:45 WBC 18.5 H RBC 4.76 Hgb 14.8 Hct 42.2 MCV 88.7 MCH 31.1 MCHC 35.1 H RDW 13.2 Plt Count 321 MPV 9.0 L Immature Gran % (Auto) 0.4 Neut % (Auto) 84.1 H Lymph % (Auto) 9.3 L Cooper % (Auto) 4.7 Eos % (Auto) 1.2 Baso % (Auto) 0.3 Lymph # (Auto) 1.7 Cooper # (Auto) 0.9 Eos # (Auto) 0.2 Baso # (Auto) 0.1 Abs Immat Gran (auto) 0.07 H Absolute Neuts (auto) 15.5 H Absolute Nucleated RBC 0.000 Nucleated RBC % (auto) 0.0 Sodium 140 Potassium 3.7 Chloride 105 Carbon Dioxide 23 Anion Gap 16 BUN 11 Creatinine 0.82 Estim Creat Clear Calc 135.2 Estimated GFR > 60 Random Glucose 103 Lactic Acid 1.1 Calcium 9.8 D Total Bilirubin 0.5 AST 19 ALT 22 Alkaline Phosphatase 56 Total Protein 7.6 Albumin 4.4 Lipase 22 Beta HCG, Quant < 2 Urine Color Yellow Urine Appearance Clear Urine pH 7.0 Ur Specific [place] 1.025 Urine Protein Negative Urine Glucose (UA) Negative Urine Ketones Trace Urine Blood Negative Urine Nitrite Negative Ur Leukocyte Esterase Negative Blood Type A Positive Antibody Screen NEGATIVE Airway Mallampati Class: III TM Dist: <=3cm Neck ROM: Full Loose/Missing/Broken Teeth: No Heart: rrr Lungs: cta Assessment and Plan Assessment Anesthesia Assessment: Anesthesia Plan Discussed and Chart Reviewed Final Anesthetic Review Family History of Problems with Anesthesia: No History of Problems with Anesthesia: No NPO: Yes ASA Class: III and Emergency Final Preanesthetic Review: No Changes in Pt Med Stat, Meds/Allgs Chart Reviewed, Consent Obtained/Reviewed and Anes Risks/Benef Reviewed Patient Risk: High Procedure Risk: Intermediate Anesthetic Plan Anesthetic Plan: GA Disposition: Standard PACU
[2024-03-17] MEDS: Lactated Ringers 1,000 ML 50 ML IVCONT (11:47)
--- NOTE | 2024-03-17 13:24 | W.PM.OPN ---
Operative Note Operative Note Date of Service: 03/17/24 Narrative: Preop diagnosis: Acute appendicitis Postop diagnosis: Acute appendicitis, with the appendix markedly indurated, very adherent to the cecum and coursing in a pericecal direction superiorly, surrounded by inflamed, thickened fiber areolar tissue Procedure: Laparoscopic appendectomy Surgeon: Redd Holland MD 1st program support assistant: ORVILLE Grace The patient is a 39 year female admitted because of acute appendicitis. She had an appendicolith CT scan. I recommended proceeding with laparoscopic appendectomy. She understood the technique of the planned procedure as well as the risks, benefits, and alternatives She was brought to the operating room. She was placed supine under general anesthesia via endotracheal tube. A Gordillo catheter was inserted. The abdomen was prepped and draped in the usual sterile fashion. A surgical time-out was done. The patient was receiving scheduled IV antibiotics I proceeded to make a small infraumbilical incision with a blade 15. This was carried down through the full-thickness of the skin and subcutaneous fat. The patient was morbidly obese so we had difficulty exposing the fascia but were eventually able to incised the fascia and entered the peritoneal cavity. Through this incision a Melendez port was introduced. Pneumoperitoneum was introduced to a pressure of 15 mm Hg. From here on the rest of procedure was under vision with the laparoscope. We alternated between 10 mm laparoscope and the 5 mm laparoscope. Laparoscopic visualization I inserted a 5 mm port in the left lower quadrant as well in the suprapubic margin. The patient was placed in a steep head-down and [id number] position. Graspers were placed through the working ports. We proceeded to identify the cecum. By following this, I was able to then see what appeared to the very base of the appendix. The entire appendix was surrounded by thickened fibrotic and very indurated tissue. The appendix was coursing Cecal direction superiorly. This was markedly adherent to the lateral aspect of the cecum. We had to do a prolonged in careful dissection of the appendix using a combination of the [place] dissector, the blunt tip of the suction catheter and with LigaSure. We had to separate very indurated tissue surrounding the appendix all the way to the tip. I then proceeded to create a mesenteric window at the base. I used the Endo-JACQUELINE 30mm stapler and we were able to position this across the base. This was fired to transect the appendix. I had to do more dissection of the appendix away from the cecum by carefully blunt dissection with the [place] dissector as well as using the LigaSure to divide very thickened and indurated mesoappendix. We eventually reached the tip and completely transected the appendix. This was retrieved through an endobag through the umbilical incision. I reinserted all ports and re-insufflated. I examined the staple line and this was intact. There was no evidence of any bleeding. I examined all 4 quadrants. There was no evidence of any other pathology or any bowel injury. I positioned a JAKOB drain at the staple line this was brought out through the suprapubic port site. This was secured to the skin with nylon 3-0 sutures. I then irrigated the area of dissection a little bit. I then desufflated the port sites and removed all ports under vision with the laparoscope. The Melendez port was removed last. It is noted as well that the ports periodically slipped out of the peritoneal cavity because of the patient's very thick subcutaneous fat during the procedure. We then proceeded to close the fascia of the umbilical incision with a [id number] Polysorb 0 stitch Skin closure was achieved on the other incisions with Polysorb 4-0 subcuticular running sutures All incisions were infiltrated with Marcaine 0.5% for postop analgesia Dressings were applied. The procedure was then completed The patient tolerated the procedure well. There were no immediate complications. Initial final counts of sponges and instruments were correct. Estimated blood loss was about 50 cc The patient was extubated without difficulty and transferred to recovery room with stable vital signs.
[2024-03-17] MEDS: HYDROmorphone HCl 0.5 MG/0.5 ML SYRINGE IVPUSH (15:00)
--- NOTE | 2024-03-17 15:27 | PM.EVENT ---
Event Note Date of Service: 03/17/24 Event Note: seen postop s/p lap appy alert, comfortable looks well adequate pain control stable VS JAKOB drain - serosanguinous pain mgt likely dc home tomorrow updated Time Spent With Patient Time: Total time managing care of this patient today ____ minutes.
--- NOTE | 2024-03-17 18:23 | PM.EVENT ---
Event Note Date of Service: 03/17/24 Event Note: Patient seen examined by hospitalist team this morning, seen and examined again Physical exam unchanged Abdominal pain similar but slightly improving, no fever Assessment plan in consultation note Dr. Martins Patient will be going for surgery today Chest x-ray done preop workup, pending Patient will be going for surgery today Continue IV antibiotic, pain management, IV fluid Will continue to monitor. Time Spent With Patient Time: Total time managing care of this patient today ____ minutes.
[2024-03-17] MEDS: Labetalol HCL 200 MG TABLET PO (19:16)
[2024-03-17] MEDS: diazePAM 5 MG TABLET PO (19:17)
[2024-03-18] VITALS (9 sets, daily range): BP systolic 106–124; BP diastolic 54–59; PULSE 70–82; RESP 16–18; TEMP 36.2–36.3; O2SAT 97
[2024-03-18] MEDS: Morphine Sulfate 4 MG/ML CARTRIDGE 3 MG IVPUSH ×6 (00:04→21:19)
--- NOTE | 2024-03-18 02:01 | PC.NURSE ---
approximately midnight, patient reported productive cough of small amount sputum. Intermittent cough. This is new per patient. Denies any upper respiratory symptoms, no chest pain, no shortness of breath. Lungs clear, dim bases.
[2024-03-18] MEDS: 0.9 % Sodium Chloride 1,000 ML 100 ML IVCONT (03:38)
--- NOTE | 2024-03-18 04:30 | PC.NURSE ---
Patient is worried about chronic constipation with narcotics. She states she had a very small BM Saturday and takes Miralax at home. She is asking if she stays another night if we could add stool softener.
[2024-03-18] MEDS: Piperacillin Sodium/Tazobactam 3.375 GM in 0.9 % Sodium Chloride 50 ML IV ×4 (06:27→23:25)
--- NOTE | 2024-03-18 07:50 | PM.PNGS ---
Subjective Subjective Date of Service: 03/18/24 <Holli Grace PA-C - Last Filed: 03/18/24 07:58> 03/18/24 <Redd Holland MD - Last Filed: 03/18/24 08:12> Interval history: Feels better than prior to surgery, having some incisional pain but was able to get OOB and clean up this morning. Feels very tired. Tolerating solid diet. No BM, passing flatus, reports chronic constipation. <Holli Grace PA-C - Last Filed: 03/18/24 07:58> Physical Exam Vital Signs: Vital Signs: Last Vital Signs Temp 97.2 F 03/18/24 07:37 Pulse 71 03/18/24 07:37 Resp 16 03/18/24 07:37 BP 106/54 L 03/18/24 07:37 Pulse Ox 97 03/18/24 07:37 O2 Del Method Room Air 03/18/24 07:37 O2 Flow Rate 2 03/17/24 16:08 BMI result Body Mass Index 42.5 <Holli Grace PA-C - Last Filed: 03/18/24 07:58> Const: General: comfortable, no acute distress and alert <ONELIA Lange Last Filed: 03/18/24 07:58> Orientation/consciousness: patient oriented x3 <Holli Grace PA-C - Last Filed: 03/18/24 07:58> Resp: Effort & Inspection: normal respiratory effort <Holli Grace PA-C - Last Filed: 03/18/24 07:58> GI: Other: JAKOB drain with scant serosanguineous output <Holli Grace PA-C - Last Filed: 03/18/24 07:58> Inspection: No distended and Yes incision (dressings c/d/i) <ONELIA Lange Last Filed: 03/18/24 07:58> Palpation (GI): Soft to palpation, Tenderness to palpation present (GI) (mild incisional) and no guarding <ONELIA Lange Last Filed: 03/18/24 07:58> Skin: General skin exam: no rashes or lesions noted <Holli Grace PA-C - Last Filed: 03/18/24 07:58> Neuro: General: patient oriented x3 <Holli Grace PA-C - Last Filed: 03/18/24 07:58> Objective Data Active Medications Diazepam (Diazepam 5 Mg Tablet) 5 mg PO BEDTIME PRN PRN Reason: insomnia Last Admin: 03/17/24 19:17 Dose: 5 mg Documented By: STEFAN Docusate Sodium (Docusate Sodium 100 Mg Capsule) 100 mg PO BID [facility] Sodium Chloride (Ns) 1,000 mls @ 100 mls/hr IVCONT .Q10H [facility] Last Admin: 03/18/24 03:38 Dose: 100 mls/hr Documented By: ISHA Piperacillin Sod/Tazobactam (Sod 3.375 gm/ Sodium Chloride) 50 mls @ 100 mls/hr IV Q6H [facility] Last Infusion: 03/18/24 07:02 Dose: Infused Documented By: SHWETHA Lactated Ringer's (Lr) 1,000 mls @ 50 mls/hr IVCONT .Q20H [facility] Last Infusion: 03/17/24 15:54 Dose: Infused Documented By: MIGUEL Labetalol HCl (Labetalol Hcl 200 Mg Tablet) 200 mg PO BID [facility]; Protocol Last Admin: 03/17/24 19:16 Dose: 200 mg Documented By: STEFAN Morphine Sulfate (Morphine Sulfate 4 Mg/Ml Cartridge) 3 mg IVPUSH Q3H PRN; Protocol PRN Reason: Pain, Severe (Pain Scale 7-10) Last Admin: 03/18/24 07:40 Dose: 3 mg Documented By: SHWETHA Ondansetron HCl (Ondansetron Hcl 4 Mg/2 Ml Vial) 4 mg IVPUSH Q6H PRN PRN Reason: Nausea and Vomiting Last Admin: 03/17/24 10:14 Dose: 4 mg Documented By: SHWETHA Oxycodone HCl (Oxycodone Hcl Immed Release 5 Mg Tablet) 5 mg PO Q4H PRN PRN Reason: Pain, Moderate(Pain Scale 4-6) Polyethylene Glycol (Polyethylene Glycol 3350 17 Gm Powd.Pack) 17 gm PO DAILY [facility] Sodium Chloride (0.9 % Sodium Chloride Flush 3 Ml Syringe) 3 ml IVFLUSH QSHIFT [facility] Last Admin: 03/18/24 06:53 Dose: Not Given Documented By: SHWETHA Non-Admin Reason: IV Running <Holli Grace PA-C - Last Filed: 03/18/24 07:58> Labs CBC & Chem 7: 03/16/24 20:21 03/16/24 20:21 <Holli Grace PA-C - Last Filed: 03/18/24 07:58> Labs: Laboratory Results - last 24 hr 03/17/24 09:45 Blood Type A Positive Antibody Screen NEGATIVE <Holli Grace PA-C - Last Filed: 03/18/24 07:58> Microbiology Microbiology Results: Microbiology 03/16/24 22:20 Blood Culture - Preliminary Blood - Venous No growth after 24 hours. <Holli Grace PA-C - Last Filed: 03/18/24 07:58> Procedures Date of Service Date of Service: 03/18/24 <Holli Grace PA-C - Last Filed: 03/18/24 07:58> 03/18/24 <Redd Holland MD - Last Filed: 03/18/24 08:12> Progress Note: A&P Assessment and plan (1) Acute appendicitis: Status: Acute <Holli Grace PA-C - Last Filed: 03/18/24 07:58> Assessment and Plan: feels much better compared to preop does admit to pain including on right flank area - likely from the dissection looks well no fever abdomen soft JAKOB drain serosanguineous she says she would like to stay another day - concerned about pain control after discharge plan to DC home tomorrow removed JAKOB prior to discharge looks well overall seen and examined independently <Redd Holland MD - Last Filed: 03/18/24 08:12> (2) S/P laparoscopic appendectomy: Status: Acute <Holli Grace PA-C - Last Filed: 03/18/24 07:58> Assessment and Plan: POD #1 s/p lap appy. Doing well post op but hesistant for dc. Abd exam benign with appropriate post op tenderness, dressings clean and intact. JAKOB drain serosang. Will reassess for dc to home later today. Will remove drain prior. Patient comfortable with plan. Bowel regimen. <Holli Grace PA-C - Last Filed: 03/18/24 07:58> Time Spent With Patient Time: Total time managing care of this patient today ____ minutes. <Holli Grace PA-C - Last Filed: 03/18/24 07:58> Quality Stroke Does the patient have a stroke diagnosis?: No <Holli Grace PA-C - Last Filed: 03/18/24 07:58> VTE Prior VTE?: No <Holli Grace PA-C - Last Filed: 03/18/24 07:58> VTE Risk Level:: Medical - low <Holli Grace PA-C - Last Filed: 03/18/24 07:58> VTE Device Contraindication: N/A - Device Ordered <Holli Grace PA-C - Last Filed: 03/18/24 07:58> VTE Drug Contraindication: Treatment Not Indicated <Holli Grace PA-C - Last Filed: 03/18/24 07:58>
[2024-03-18] MEDS: polyethylene glycoL 3350 17 GM POWD.PACK PO (08:51)
[2024-03-18] MEDS: oxyCODONE HCl Immed Release 5 MG TABLET PO ×3 (08:51→19:45)
[2024-03-18] MEDS: Labetalol HCL 200 MG TABLET PO ×2 (08:51→19:45)
[2024-03-18] MEDS: Docusate Sodium 100 MG CAPSULE PO ×2 (08:51→19:44)
--- NOTE | 2024-03-18 10:24 | MHC.CM.PN ---
EMR reviewed. Patient not medically cleared for dc at this time, potentially later today. JAKOB drain to be removed prior to dc. Plan remains home self care. CM will continue to follow.
--- NOTE | 2024-03-18 13:29 | HO.PM.IMPN ---
Subjective Subjective Date of Service: 03/18/24 Interval History: appendicitis Review of Systems seems improving has drain Physical Exam Vital Signs: Vital Signs: Last Vital Signs Temp 97.2 F 03/18/24 12:00 Pulse 81 03/18/24 12:00 Resp 16 03/18/24 12:00 BP 124/58 L 03/18/24 12:00 Pulse Ox 97 03/18/24 12:00 O2 Del Method Room Air 03/18/24 12:00 O2 Flow Rate 2 03/17/24 16:08 BMI result Body Mass Index 42.5 Appearance: Alert.? Oriented X3.? cvs: rrr, [id number] , no murmur res: clear to auscultation ,no rhonchii or wheezing abd: no rebound or guarding ,nt, bs present. ext pulses present , no cyanosis,boyd drain-serosanguineous. neuro: axo3 , nonfocal. Objective Data Active Medications Diazepam (Diazepam 5 Mg Tablet) 5 mg PO BEDTIME PRN PRN Reason: insomnia Last Admin: 03/17/24 19:17 Dose: 5 mg Documented By: STEFAN Docusate Sodium (Docusate Sodium 100 Mg Capsule) 100 mg PO BID [facility] Last Admin: 03/18/24 08:51 Dose: 100 mg Documented By: SHWETHA Docusate Sodium (Docusate Sodium 100 Mg Capsule) 100 mg PO BID PRN PRN Reason: constipation Piperacillin Sod/Tazobactam (Sod 3.375 gm/ Sodium Chloride) 50 mls @ 100 mls/hr IV Q6H [facility] Last Infusion: 03/18/24 12:52 Dose: Infused Documented By: SHWETHA Labetalol HCl (Labetalol Hcl 200 Mg Tablet) 200 mg PO BID [facility]; Protocol Last Admin: 03/18/24 08:51 Dose: 200 mg Documented By: SHWETHA Morphine Sulfate (Morphine Sulfate 4 Mg/Ml Cartridge) 3 mg IVPUSH Q3H PRN; Protocol PRN Reason: Pain, Severe (Pain Scale 7-10) Last Admin: 03/18/24 12:11 Dose: 3 mg Documented By: SHWETHA Ondansetron HCl (Ondansetron Hcl 4 Mg/2 Ml Vial) 4 mg IVPUSH Q6H PRN PRN Reason: Nausea and Vomiting Last Admin: 03/17/24 10:14 Dose: 4 mg Documented By: SHWETHA Oxycodone HCl (Oxycodone Hcl Immed Release 5 Mg Tablet) 5 mg PO Q4H PRN PRN Reason: Pain, Moderate(Pain Scale 4-6) Last Admin: 03/18/24 13:29 Dose: 5 mg Documented By: SHWETHA Polyethylene Glycol (Polyethylene Glycol 3350 17 Gm Powd.Pack) 17 gm PO DAILY [facility] Last Admin: 03/18/24 08:51 Dose: 17 gm Documented By: SHWETHA Sodium Chloride (0.9 % Sodium Chloride Flush 3 Ml Syringe) 3 ml IVFLUSH QSHIFT [facility] Last Admin: 03/18/24 06:53 Dose: Not Given Documented By: SHWETHA Non-Admin Reason: IV Running Labs 03/16/24 20:21 03/16/24 20:21 Microbiology Microbiology Results: Microbiology 03/16/24 00:24 Blood Culture - Preliminary Blood - Venous No growth after 24 hours. 03/16/24 22:20 Blood Culture - Preliminary Blood - Venous No growth after 24 hours. Assessment and Plan (1) S/P laparoscopic appendectomy: Status: Acute (2) Acute appendicitis: Status: Acute Plan 39 y/o woman presents with: Acute appendicitis, uncomplicated. s/p lap appy blood culture neg@24hrs has boyd drain repeat cbc continue iv antibiotics (zosyn) SIRS resolved. Presence of cardiac pacemaker. Follow as an outpatient by Dr. Camacho, last visit 03/13/24 - Adequate pacemaker function. ECG showed NSR, IRBBB, no ischemia. CXR ordered. Obesity, BMI 42.5 kg/m2. Weight loss on Wegovy injections (first dose 6 weeks ago, last dose was yesterday). Quality Stroke Does the patient have a stroke diagnosis?: No VTE Prior VTE?: No VTE Risk Level:: Medical - low VTE Device Contraindication: N/A - Device Ordered VTE Drug Contraindication: Treatment Not Indicated
[2024-03-18 14:43] LABS: Hematocrit 33.4 % (37.0-47.0); Hemoglobin 11.1 g/dl (12.0-16.0); Mean Corpuscular HGB Conc 33.2 g/dl (31.0-35.0); Mean Corpuscular Volume 93.3 fL (80.0-98.0); Mean Platelet Volume 9.4 fL (9.4-12.3); Platelet Count 267 X10*3/uL (160-400); Red Blood Count 3.58 X10*6/uL (4.20-5.50); Red Cell Distribution Width 13.6 % (11.0-16.0); White Blood Count 10.3 X10*3/uL (4.8-10.8)
--- NOTE | 2024-03-18 15:32 | HO.POSTANES ---
Post Anesthesia Evaluation Post Anesthesia Evaluation Date of Service: 03/18/24 Vital Signs: Vital Signs Temp Pulse Resp BP Pulse Ox O2 Del Method 03/18/24 14:59 97.4 F 80 18 112/56 L 97 Room Air 03/18/24 12:00 97.2 F 81 16 124/58 L 97 Room Air 03/18/24 08:51 82 123/58 L 03/18/24 07:37 97.2 F 71 16 106/54 L 97 Room Air 03/18/24 04:15 16 Anesthesia: General Endotracheal-GETA Mental Status: Awake Pain Control: Satisfactory Nausea/Vomiting: None Hydration: Adequate Anesthesia-Related Issues: No Anes. Related Issues
[2024-03-18] MEDS: 0.9 % Sodium Chloride Flush 3 ML SYRINGE IVFLUSH ×2 (17:24→21:20)
[2024-03-18] MEDS: diazePAM 5 MG TABLET PO (21:19)
[2024-03-19] MEDS: Morphine Sulfate 4 MG/ML CARTRIDGE 3 MG IVPUSH ×2 (02:57→07:45)
[2024-03-19 03:39] VITALS: BP 120/58; PULSE 66; RESP 16; TEMP 36.3; O2SAT 95
[2024-03-19] MEDS: Piperacillin Sodium/Tazobactam 3.375 GM in 0.9 % Sodium Chloride 50 ML IV (06:01)
[2024-03-19] MEDS: oxyCODONE HCl Immed Release 5 MG TABLET PO (06:05)
[2024-03-19] MEDS: 0.9 % Sodium Chloride Flush 3 ML SYRINGE IVFLUSH (07:48)
[2024-03-19 08:00] VITALS: BP 136/63; PULSE 76; RESP 18; O2SAT 97
--- NOTE | 2024-03-19 08:09 | P.PNGS_ITS ---
Subjective Subjective Date of Service: 03/19/24 <Holli Grace PA-C - Last Filed: 03/19/24 08:11> 03/19/24 <Redd Holland MD - Last Filed: 03/19/24 08:33> Interval history: Feels improved this morning and ready for discharge. Pain well controlled. <Holli Grace PA-C - Last Filed: 03/19/24 08:11> Physical Exam 2 Vital Signs: Vital Signs: Last Vital Signs Temp 97.3 F 03/19/24 03:39 Pulse 66 03/19/24 03:39 Resp 16 03/19/24 03:39 BP 120/58 L 03/19/24 03:39 Pulse Ox 95 03/19/24 03:39 O2 Del Method Room Air 03/19/24 03:39 O2 Flow Rate 2 03/17/24 16:08 BMI result Body Mass Index 42.5 <Holli Grace PA-C - Last Filed: 03/19/24 08:11> Const: General: comfortable, no acute distress and alert <Holli Grace PA-C - Last Filed: 03/19/24 08:11> GI: Other: JAKOB drain scant serosanguineous <Holli Grace PA-C - Last Filed: 03/19/24 08:11> Inspection: No distended and Yes incision (clean ) <BLOSSOM Lange - Last Filed: 03/19/24 08:11> Palpation (GI): Soft to palpation, Tenderness to palpation present (GI) (mild incisional) and no guarding <Holli Grace PA-C - Last Filed: 03/19/24 08:11> Skin: General skin exam: no rashes or lesions noted <ONELIA Lange Last Filed: 03/19/24 08:11> Objective Data Active Medications Diazepam (Diazepam 5 Mg Tablet) 5 mg PO BEDTIME PRN PRN Reason: insomnia Last Admin: 03/18/24 21:19 Dose: 5 mg Documented By: STEFAN Docusate Sodium (Docusate Sodium 100 Mg Capsule) 100 mg PO BID [facility] Last Admin: 03/18/24 19:44 Dose: 100 mg Documented By: STEFAN Docusate Sodium (Docusate Sodium 100 Mg Capsule) 100 mg PO BID PRN PRN Reason: constipation Piperacillin Sod/Tazobactam (Sod 3.375 gm/ Sodium Chloride) 50 mls @ 100 mls/hr IV Q6H [facility] Last Infusion: 03/19/24 06:35 Dose: Infused Documented By: STEFAN Labetalol HCl (Labetalol Hcl 200 Mg Tablet) 200 mg PO BID [facility]; Protocol Last Admin: 03/18/24 19:45 Dose: 200 mg Documented By: STEFAN Morphine Sulfate (Morphine Sulfate 4 Mg/Ml Cartridge) 3 mg IVPUSH Q3H PRN; Protocol PRN Reason: Pain, Severe (Pain Scale 7-10) Last Admin: 03/19/24 07:45 Dose: 3 mg Documented By: SHWETHA Ondansetron HCl (Ondansetron Hcl 4 Mg/2 Ml Vial) 4 mg IVPUSH Q6H PRN PRN Reason: Nausea and Vomiting Last Admin: 03/17/24 10:14 Dose: 4 mg Documented By: SHWETHA Oxycodone HCl (Oxycodone Hcl Immed Release 5 Mg Tablet) 5 mg PO Q4H PRN PRN Reason: Pain, Moderate(Pain Scale 4-6) Last Admin: 03/19/24 06:05 Dose: 5 mg Documented By: STEFAN Polyethylene Glycol (Polyethylene Glycol 3350 17 Gm Powd.Pack) 17 gm PO DAILY [facility] Last Admin: 03/18/24 08:51 Dose: 17 gm Documented By: SHWETHA Sodium Chloride (0.9 % Sodium Chloride Flush 3 Ml Syringe) 3 ml IVFLUSH QSHIFT [facility] Last Admin: 03/19/24 07:48 Dose: 3 ml Documented By: SHWETHA <Holli Grace PA-C - Last Filed: 03/19/24 08:11> Labs CBC & Chem 7: 03/18/24 13:56 03/16/24 20:21 <Holli Grace PA-C - Last Filed: 03/19/24 08:11> Labs: Laboratory Results - last 24 hr 03/18/24 13:56 MCV 93.3 MCH 31.0 MCHC 33.2 RDW 13.6 Plt Count 267 MPV 9.4 Absolute Nucleated RBC 0.000 Nucleated RBC % (auto) 0.0 <Holli Grace PA-C - Last Filed: 03/19/24 08:11> Microbiology Microbiology Results: Microbiology 03/16/24 22:20 Blood Culture - Preliminary Blood - Venous No growth after 48 hours. 03/16/24 00:24 Blood Culture - Preliminary Blood - Venous No growth after 24 hours. <Holli Grace PA-C - Last Filed: 03/19/24 08:11> Procedures Date of Service Date of Service: 03/19/24 <Holli Grace PA-C - Last Filed: 03/19/24 08:11> 03/19/24 <Redd Holland MD - Last Filed: 03/19/24 08:33> Progress Note: A&P Assessment and plan (1) S/P laparoscopic appendectomy: Status: Acute <Holli Grace PA-C - Last Filed: 03/19/24 08:11> Assessment and Plan: Looks well Denies complaints Tolerating diet well Good pain control Okay to DC home JAKOB drain removed - had minimal scanty output DC instructions reinforced Seen and examined independently <Redd Holland MD - Last Filed: 03/19/24 08:33> (2) Acute appendicitis: Status: Acute <Holli Grace PA-C - Last Filed: 03/19/24 08:11> Assessment and Plan: POD #2 s/p lap appy. Continues to do well and feels ready for discharge. Abd exam benign with appropriate post op tenderness,incisions clean. JAKOB drain serosang and removed this am. Stable for dc to home. F/u in office in 1 week. Patient comfortable with plan. <Holli Grace PA-C - Last Filed: 03/19/24 08:11> Time Spent With Patient Time: Total time managing care of this patient today ____ minutes. <Holli Grace PA-C - Last Filed: 03/19/24 08:11> Quality Stroke Does the patient have a stroke diagnosis?: No <Holli Grace PA-C - Last Filed: 03/19/24 08:11> VTE Prior VTE?: No <Holli Grace PA-C - Last Filed: 03/19/24 08:11> VTE Risk Level:: Medical - low <Holli Grace PA-C - Last Filed: 03/19/24 08:11> VTE Device Contraindication: N/A - Device Ordered <ONELIA Lange Last Filed: 03/19/24 08:11> VTE Drug Contraindication: Treatment Not Indicated <Holli Grace PA-C - Last Filed: 03/19/24 08:11>
--- NOTE | 2024-03-19 08:21 | P.DS_ITS ---
DS: Providers Provider Date of Service: 03/19/24 Date of admission: 03/16/24 23:47 Date of discharge: 03/19/24 [facility] Attending physician on admission: Redd Holland Consults: 03/16/24 23:56 Consult to Hospitalist Routine Comment: Consulting Provider: Hospitalist Reason For Exam: on labetalol, has pacemaker Attending physician on discharge: Redd Holland DS: Diagnosis Discharge Diagnosis (1) S/P laparoscopic appendectomy: Status: Acute (2) Acute appendicitis: Status: Acute DS: Summary Hospital Course Hospital Course: HPI AT ADMISSION: Ellen Moore is a 39 year old female admitted last night for abdominal pain. He describes having periumbilical pain and right-sided abdominal pain starting 1 day prior to admission. She says that this has persisted yesterday. She then started to have a lot of nausea and vomiting in the afternoon so she came to the emergency room last night. Her CT scan showed acute appendicitis. She has had no similar episodes in the past. She has a known history of vasovagal symptoms and had a pacemaker done a few years ago. She has been on labetalol as well because of hypertension. She is on Wegovy for weight loss. HOSPITAL COURSE: The patient was admitted to the surgical service for further treatment of the acute appendicitis. She elected to proceed with laparoscopic appendectomy. She was added onto the OR schedule for that day. Hospitalist consult was obtained for medical management. On 03/17/24, a laparoscopic appendectomy was performed by Dr. Holland without complication. The patient tolerated the procedure well. She had an uncomplicated recovery course. She remained inpatient for 2 nights for pain. On POD #2, she felt well and was tolerating a solid diet without nausea or vomiting, had good pain control and was ambulating without difficulty. She was hemodynamically stable. Her abdomen was benign with appropriate post op tenderness and clean incisions. JAKOB drain had serosanguineous output and was removed. She felt ready for discharge. She was discharged to home on 03/19/24 in stable condition. She is to follow up in the office in 1 week. Time Attestation Discharge Coordination Time (in mins): 35 Quality: Safe Use of Opioids Does Pt have an Active Cancer Diagnosis on the Problem List?: No Quality: Stroke Does the patient have a stroke diagnosis?: No Physical Exam Vital Signs: Vital Signs: Last Vital Signs Temp 97.3 F 03/19/24 03:39 Pulse 66 03/19/24 03:39 Resp 16 03/19/24 03:39 BP 120/58 L 03/19/24 03:39 Pulse Ox 95 03/19/24 03:39 O2 Del Method Room Air 03/19/24 03:39 O2 Flow Rate 2 03/17/24 16:08 BMI result Body Mass Index 42.5 Const: General: comfortable, no acute distress and alert Orientation/consciousness: patient oriented x3 Resp: Effort & Inspection: normal respiratory effort GI: Other: JAKOB drain serosanguineous Inspection: No distended and Yes incision (clean) Palpation (GI): Soft to palpation, Tenderness to palpation present (GI) (mild incisional) and no guarding Skin: General skin exam: no rashes or lesions noted Neuro: General: patient oriented x3 DS: Data Data Completed and Pending Completed studies during hospitalization [Text1]: 03/17/24 13:18 Surgical Path [Surgical] [PTH] Routine Vermiform appendix, appendectomy: Acute appendicitis and periappendicitis. Labs on day of discharge: Laboratory Results - last 24 hr 03/18/24 13:56 WBC 10.3 RBC 3.58 L D Hgb 11.1 L D Hct 33.4 L D MCV 93.3 MCH 31.0 MCHC 33.2 RDW 13.6 Plt Count 267 MPV 9.4 Absolute Nucleated RBC 0.000 Nucleated RBC % (auto) 0.0 Preliminary micro results at discharge 03/16/24 22:20 Blood Culture - Preliminary Blood - Venous No growth after 48 hours. 03/16/24 00:24 Blood Culture - Preliminary Blood - Venous No growth after 24 hours. Discharge Plan Discharge Anticipated Discharge Date/Time: 03/18/24 15:12 Patient Disposition: Home, Self-Care Discharge Diagnosis: acute appendicitis Referrals: Michael Gilbert FNP-LOI [Primary Care Provider] - 1 Week Redd Holland MD [Physician] - 1 Week Discharge Medications: New oxycodone-acetaminophen [Percocet] 5-325 mg tablet 1 tab PO Q4-6H PRN (Reason: pain) Qty: 25 0RF Rx Instructions: Partial Fill upon patient request. ibuprofen 600 mg tablet 600 mg PO Q6H PRN (Reason: pain) Qty: 30 0RF docusate sodium [Colace] 100 mg capsule 100 mg PO BID Qty: 60 2RF Continued labetalol 200 mg tablet 200 mg PO BID Qty: 60 6RF diazepam 5 mg tablet 5 mg PO BEDTIME PRN (Reason: insomnia) 30 Days Qty: 30 0RF valacyclovir 500 mg tablet 500 mg PO DAILY PRN (Reason: oral) Qty: 60 0RF semaglutide (weight loss) 0.5 mg/0.5 mL pen injector 0.5 mg subcut MO@0900 Rx Instructions: administer weeks 1 through 4 of therapy on Mon Discharge Orders: Discharge Order (Routine); Ordered 03/19/24 Ordered By: Holli Grace Diet: Advance to usual diet Activity on Discharge: No heavy lifting Stand Alone Forms: Patient Portal Discharge page Print Language: Bulgarian Activity Restrictions/Additional Instructions: If the incision area is tender, you may apply an ice pack for short intervals (No more than 20 minutes on, followed by at least 20 minutes off). Do not apply heat. Do not use creams, lotions, or topical antibiotics. These can cause infection or allergic reaction. Ok to shower 24 hours after your surgery. Remove bandaids in 2 days and replace. You have steri strips (small white cloth strips) covering your incision- these will fall off ~1 week. Follow up in office with Dr. Holland in 2 weeks. ([phone]) No heavy lifting (>10-20lbs) or strenuous activity! Call Your Doctor If: -Your temperature exceeds 101.5? F -You experience excessive pain or swelling -You have an unexpected reaction to medication -You have excessive bleeding -You experience continued vomiting/nausea -Your incision begins to separate -Your incision shows signs of infection such as increased redness, swelling, excessive pain, drainage (light blood or clear fluid is normal) or heat Care Plan Goals: Return to baseline health and resume normal activities following recovery period. Health Concerns: acute appendicitis pacemaker in place Plan of Treatment: s/p laparoscopic appendectomy Assessment: Doing well post op
--- NOTE | 2024-03-19 08:28 | MHC.CM.PN ---
PT WILL DC HOME WITH NO SERVICES VIA PRIVATE TRANSPORT
[2024-03-19] MEDS: Labetalol HCL 200 MG TABLET PO (08:37)
[2024-03-19] MEDS: polyethylene glycoL 3350 17 GM POWD.PACK PO (08:37)
[2024-03-19] MEDS: Docusate Sodium 100 MG CAPSULE PO (08:38)
--- NOTE | 2024-03-19 08:50 | MHC.CM.PN ---
DC PLAN IS HOME TODAY - SELF CARE. RN AWARE.
== END 2024-03-19 10:31 | disposition home or self-care (01) | DRG 234 ==
LOC: HO.ED 21:04 → HO.EDOVER 03-17 00:29 → HO.S3 03-17 02:38
PROVIDERS: Internal Medicine; Physician Assistant Medical; Admitting Provider Surgery; Emergency Provider Internal Medicine; PCP Nurse Practitioner Family; Visit Provider Surgery
PROC: 0DTJ4ZZ Resection of Appendix, Percutaneous Endoscopic Approach (ICD-10-PCS; CPT 44970; principal; 2024-03-17 12:10)
DX: K35.80 Unspecified acute appendicitis (principal); E66.01 Morbid (severe) obesity due to excess calories; I10 Essential (primary) hypertension; K59.09 Other constipation; K38.1 Appendicular concretions; Z95.0 Presence of cardiac pacemaker; Z68.41 Body mass index [BMI] 40.0-44.9, adult; Z87.891 Personal history of nicotine dependence; Z79.899 Other long term (current) drug therapy
CPT/HCPCS: 36415; 71045; 74176; 76705; 80053; 81003; 83605; 83690; 84702; 85025; 85027; 86850; 86900; 86901; 87040; 88304; 93005; 99285; J1100; J1170; J1885; J2270; J2405; J2543; J2704; J2795; J7120

== ENCOUNTER 2024-03-16 23:47 | Outpatient (BNV) | payer OTHER, SELFPAY | END 2024-03-17 06:44 | PROVIDERS: Admitting Provider Surgery; Emergency Provider Internal Medicine; PCP Nurse Practitioner Family; Visit Provider Internal Medicine | DX: I45.19 Other right bundle-branch block (principal); Z95.0 Presence of cardiac pacemaker; R94.31 Abnormal electrocardiogram [ECG] [EKG] | CPT/HCPCS: 93010 ==

== ENCOUNTER → 2024-03-16 23:47 | Outpatient (BNV) | payer OTHER, SELFPAY | PROVIDERS: Admitting Provider Surgery; Emergency Provider Internal Medicine; PCP Nurse Practitioner Family; Visit Provider Internal Medicine | DX: Z90.49 Acquired absence of other specified parts of digestive tract (principal); K35.80 Unspecified acute appendicitis | CPT/HCPCS: 99223; 99231; 99499 ==

== ENCOUNTER → 2024-03-16 23:47 | Outpatient (BNV) | payer OTHER, SELFPAY | PROVIDERS: Admitting Provider Surgery; Emergency Provider Internal Medicine; PCP Nurse Practitioner Family; Visit Provider Surgery | DX: K35.80 Unspecified acute appendicitis (principal); Z90.49 Acquired absence of other specified parts of digestive tract | CPT/HCPCS: 44970; 99024; 99222; 99499 ==

== ENCOUNTER 2024-03-26 10:26 | Outpatient (AMB) | payer OTHER, SELFPAY ==
--- NOTE | 2024-03-26 10:38 | A.OFFVIS_ITS ---
Intake Visit Reasons: s/p appendectomy Intake Note: This patient presents for a post-op assessment status post Laparoscopic appendectomy. Pt c/o; reports no complaints pertaining to surgery. Surgery date:Laparoscopic appendectomy 03/17/2024 Technical Manager Required: No Accompanied by: Self / Same As Patient Allergies No Known Allergies Allergy (Verified 03/26/24 10:42) HPI HPI s/p appendectomy: Details: 39-year-old female here for postop visit. She underwent laparoscopic appendectomy for acute appendicitis last March 17, 2024. She tolerated the procedure well. She has good oral intake. She denies significant pain. She feels well overall. [facility] Medical History Morbid obesity HTN (hypertension) Constipation Vasovagal syncope Dyslipidemia Dyspnea Restless leg syndrome Atopic dermatitis Pacemaker Surgical History History of laparoscopic appendectomy (~03/17/24) Pacemaker History of lumpectomy Family History Father HTN (hypertension) Mother Asthma Son No problems noted. Daughter No problems noted. Maternal Grandmother Breast cancer Lung cancer Maternal Grandfather Diabetes mellitus Paternal Grandmother No problems noted. 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, [employer] Current occupational exposures/hazards: No Gender identity: Female Cognitive needs: No Hearing needs: No Vision needs: No Female Reproductive History Menstrual Age of Menarche: 15 Review of Systems Const Denies chills and Denies fever(s) Card Denies chest pain, Denies dyspnea and Denies dyspnea on exertion Resp Denies cough, Denies dyspnea and Denies dyspnea on exertion GI Denies hematochezia and Denies change in bowel habits Denies hematuria Musc Denies back pain and Denies limited range of motion Neuro Denies focal weakness and Denies convulsions Psych Denies depression and Denies mood swings Physical Exam Const General: comfortable and no acute distress Resp Effort & Inspection: normal respiratory effort GI Other: All incisions are well healed Palpation (GI): Soft to palpation, not firm and nontender Assessment & Plan Assessment & Plan (1) Acute appendicitis: Code(s): K35.80 - Unspecified acute appendicitis Category: Medical Qualifiers: Acute appendicitis type: unspecified acute appendicitis type Qualified Code(s): K35.80 - Unspecified acute appendicitis Plan: Status post laparoscopic appendectomy. She is doing very well. All incisions are well healed She has good oral intake. I advised her to avoid lifting anything more than 20 lb for at least 3 more weeks. She can otherwise follow up on a p.r.n. basis. Coding Level of Care Code Global (67386) Diagnoses Acute appendicitis, unspecified acute appendicitis type K35.80 Acute appendicitis type: unspecified acute appendicitis type
== END 2024-03-26 10:53 | disposition home or self-care (01) ==
PROVIDERS: PCP Nurse Practitioner Family; Visit Provider Surgery
DX: K35.80 Unspecified acute appendicitis (principal)
CPT/HCPCS: 99024

== ENCOUNTER → 2024-03-26 10:26 | Outpatient (BNVA) | payer OTHER, SELFPAY | PROVIDERS: PCP Nurse Practitioner Family; Visit Provider Surgery ==

== ENCOUNTER 2024-05-28 10:15 | Outpatient (AMB) | payer OTHER, SELFPAY ==
[2024-05-28 10:15] VITALS: BP 122/80; PULSE 77; O2SAT 96; BMI 41.8
--- NOTE | 2024-05-28 10:15 | MHC.PC.OV ---
Vital Signs 05/28/24 10:15 Height 5 ft 9 in Weight 283 lb BMI 41.8 BP 122/80 Blood Pressure Location Rt brachial Position Sitting Pulse 77 Pulse Source Pulse Oximeter Pulse Oximetry (%) 96 Oxygen Delivery Method Room Air Intake Visit Reasons: Weight Check/update on med Intake Note: pt is here for weight check and update on medication Actuarial Analyst Required: No Accompanied by: Self / Same As Patient Allergies No Known Allergies Allergy (Verified 05/28/24 11:40) Medication List - Last Reconciled 05/28/24 by DERRELL Govea diazepam 5 mg PO BEDTIME PRN 30 days docusate sodium (Colace) 100 mg PO BID labetalol 200 mg PO BID 90 days semaglutide (weight loss) 2.4 mg (0.75 mL) subcut QWEEK 30 days valacyclovir 500 mg PO DAILY PRN Tobacco use date assessed: 05/28/24 Dental Screening Dental Screen Date: 05/28/24 Did you have a dental visit in the last 12 months?: Yes Did you have a dental problem in the last 6 months where you did not have access to dental care?: No Was dental information given to patient?: Patient has dentist HPI Weight Check/update on med HPI Details Pt is currently taking semaglutide 1.7mg for weight loss. She reports that she has lost 3 pounds in 3 months. Pt is walking more and watching her diet. Will increase med to 2.4mg. Will follow up with pt in September. Denies fever, chills, and dizziness. [facility] Medical History Morbid obesity HTN (hypertension) Constipation Vasovagal syncope Dyslipidemia Dyspnea Restless leg syndrome Atopic dermatitis Pacemaker Surgical History History of laparoscopic appendectomy (~03/17/24) Pacemaker History of lumpectomy Family History Father HTN (hypertension) Mother Asthma Son No problems noted. Daughter No problems noted. Maternal Grandmother Breast cancer Lung cancer Maternal Grandfather Diabetes mellitus Paternal Grandmother No problems noted. 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 1. Little interest or pleasure in doing things: not at all 2. Feeling down, depressed, or hopeless: not at all 3. Trouble falling or staying asleep, or sleeping too much: several days 4. Feeling tired or having little energy: not at all 5. Poor appetite or overeating: not at all 6. Feeling bad about yourself - or that you are a failure or have let yourself or your family down: not at all 7. Trouble concentrating on things, such as reading the newspaper or watching television: not at all 8. Moving or speaking so slowly that other people could have noticed. Or the opposite - being so fidgety or restless that you have been moving around a lot more than usual: not at all 9. Thoughts that you would be better off or of hurting yourself in some way: not at all Total score: 1 Depression Screening Interpretation: Negative Depression Screening Done: Yes 06375 - PHQ-9 Billing: Yes Source: Developed by Drs. Yifan Ayers, Madai Eckert, Alonzo Hackett and colleagues, with an educational brenden from [employer]. Thrive Questionnaire Date Thrive assessed: 03/17/24 AUDIT C Alcohol Use Questionnaire (AUDIT-C) 1. How often do you have a drink containing alcohol?: Monthly or less 2. How many drinks containing alcohol do you have on a typical day when you are drinking?: 1 or 2 3. How often do you have six or more drinks on one occasion?: Never Total Score: 1 Score Reviewed/Action Taken: Yes CATRACHO-7 AMB Questionnaire CATRACHO-7 Date CATRACHO - 7 assessed: 05/28/24 Feeling nervous, anxious, or on edge: 1 = Several days Not being able to stop or control worryin = Not at all Worrying too much about different things: 0 = Not at all Trouble relaxin = Several days Being so restless that it is hard to sit still: 0 = Not at all Becoming easily annoyed or irritable: 0 = Not at all Feeling afraid as if something awful might happen: 0 = Not at all Total CATRACHO-7 score (0-4 normal; 5-9 mild; 10-14 moderate; 15-21 severe): 2 Source: Developed by Drs. Yifan Ayers, Madai Eckert, Alonzo Hackett and colleagues, with an educational brenden from [employer]. CATRACHO-7 Assessment Billing CATRACHO-7 Assessment Tool: CATRACHO-7 Assessment 53766 Review of Systems Const Reports as per HPI Physical exam (Primary Care) Vital Signs: Last Vital Signs Pulse 77 05/28/24 10:15 BP 122/80 05/28/24 10:15 Pulse Ox 96 05/28/24 10:15 Oxygen Delivery Method Room Air 05/28/24 10:15 BMI result Body Mass Index 41.8 Tobacco/Smoking Status: Tobacco use Status Tobacco use date assessed 05/28/24 05/28/24 10:17 Patient Tobacco Use Status Former Tobacco user 05/28/24 10:17 Tobacco use type Cigarette 05/28/24 10:17 e-Cigarette/Vaping Use Never Used 05/28/24 10:17 PHQ-9: PHQ-9 Score PHQ-9: Total score 1 05/28/24 10:17 Depression Screening Interpretation: Negative Thrive Assessment: Date of Thrive Assessment Date Thrive assessed 03/17/24 05/28/24 10:17 Const General: cooperative Nutritional Appearance: obese morbidly obese Orientation/consciousness: patient oriented x3 Resp Effort & Inspection: normal respiratory effort Cardio Rate: regular rate Rhythm: regular rhythm Heart sounds: S1 normal heart sound present and S2 normal heart sound present Neuro General: patient oriented x3 Psych Appearance: grossly normal Mental Status: mental status grossly normal Speech and movement: Normal speech and movement present Affect: normal affect Attitude: cooperative Thought process: Normal thought process present Thought content: Normal thought content present Insight: Good insight present (Psych) Judgement: Good judgement present (Psych) Assessment and Plan Assessment & Plan (1) Dyslipidemia: Code(s): E78.5 - Hyperlipidemia, unspecified Plan: Labs ordered (2) Morbid obesity: Code(s): E66.01 - Morbid (severe) obesity due to excess calories Plan: Increasing semaglutide from 1.7mg to 2.4mg Plan The patient agreed to the use of a quality engineer medical device for this encounter. Scribed for YESSI Blanco-LOI by Lydia Loomis quality engineer medical device, on 05/28/2024 at 10:45 EST. Orders: Orders Complete Blood Count Auto Diff Today E66.01 - Morbid (severe) obesity due to excess calories, E78.5 - Hyperlipidemia, unspecified Comprehensive Marcus. Panel Fast Today E66.01 - Morbid (severe) obesity due to excess calories, E78.5 - Hyperlipidemia, unspecified Lipid Panel Today E66.01 - Morbid (severe) obesity due to excess calories, E78.5 - Hyperlipidemia, unspecified TSH reflex Free T4 Today E66.01 - Morbid (severe) obesity due to excess calories, E78.5 - Hyperlipidemia, unspecified UA CC w/rflx Micro + Cult Today E66.01 - Morbid (severe) obesity due to excess calories Medications: Changed From semaglutide (weight loss) administer weeks 1 through 4 of therapy on Mon 1.7 mg (0.75 mL) subcut QWEEK 3 mL 1RF To semaglutide (weight loss) administer weeks 1 through 4 of therapy on Mon 2.4 mg (0.75 mL) subcut QWEEK 30 days 3.75 mL 1RF Coding Level of Care Code Est Pt Level 3 (32871) Diagnoses Dyslipidemia E78.5 Morbid obesity E66.01 Additional Codes CATRACHO-7 Assessment Billing - CATRACHO-7 Assessment Tool: CATRACHO-7 Assessment 62804 ([id number])
== END 2024-05-28 11:16 | disposition home or self-care (01) ==
PROVIDERS: PCP Nurse Practitioner Family; Visit Provider Nurse Practitioner Family
DX: E78.5 Hyperlipidemia, unspecified (principal); E66.01 Morbid (severe) obesity due to excess calories; Z68.41 Body mass index [BMI] 40.0-44.9, adult
CPT/HCPCS: 99213

== ENCOUNTER → 2024-06-11 23:59 | Outpatient (BNV) | payer OTHER, SELFPAY ==
--- NOTE | 2024-06-15 17:17 | A.OFFVIS_ITS ---
Intake Visit Reasons: Remote device check- Medtronic Allergies No Known Allergies Allergy (Verified 05/28/24 11:40) [facility] Medical History Morbid obesity HTN (hypertension) Constipation Vasovagal syncope Dyslipidemia Dyspnea Restless leg syndrome Atopic dermatitis Pacemaker Surgical History History of laparoscopic appendectomy (~03/17/24) Pacemaker History of lumpectomy Family History Father HTN (hypertension) Mother Asthma Son No problems noted. Daughter No problems noted. Maternal Grandmother Breast cancer Lung cancer Maternal Grandfather Diabetes mellitus Paternal Grandmother No problems noted. 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 Pacemaker function is adequate [id number] Cardiac Device Interrogation, pacemaker Procedure code (CPT) selection complete Assessment & Plan Assessment & Plan (1) Pacemaker: Comment: Dual-chamber Medtronic pacemaker placed, February 2018 Code(s): Z95.0 - Presence of cardiac pacemaker Category: Medical Plan: See above Coding Level of Care Code Procedure Only Diagnoses Pacemaker Z95.0 CPT Codes Cardiac Device Check - Cardiac Device 12: [id number] Cardiac Device Interrogation, pacemaker ([id number])
== END ==
PROVIDERS: PCP Nurse Practitioner Family; Visit Provider Internal Medicine Cardiovascular Disease
DX: Z45.018 Encounter for adjustment and management of other part of cardiac pacemaker (principal)
CPT/HCPCS: 93294

== ENCOUNTER 2024-06-12 07:39 | Outpatient (REF) | payer OTHER, SELFPAY ==
[2024-06-12 07:48] LABS: MANUAL DIFF FLAG NO
[2024-06-12 08:19] LABS: Basophils Absolute Auto 0.1 X10*3/uL (0.0-0.2); Basophils Percent Auto 0.7 % (0-2); Eosinophils Absolute Auto 0.3 X10*3/uL (0.0-0.4); Eosinophils Percent Auto 3.8 % (0-4); Hematocrit 40.8 % (37.0-47.0); Hemoglobin 13.6 g/dl (12.0-16.0); Imm Gran Abs Auto 0.02 X10*3/uL (0.00-0.03); Imm Gran Pct Auto 0.3 % (0.0-0.4); Lymphocytes Absolute Auto 1.7 X10*3/uL (1.2-4.9); Lymphocytes Percent Auto 23.6 % (20-40); Mean Corpuscular HGB Conc 33.3 g/dl (31.0-35.0); Mean Corpuscular Hemoglobin 30.3 pg (27.0-33.0); Mean Corpuscular Volume 90.9 fL (80.0-98.0); Monocytes Absolute Auto 0.5 X10*3/uL (0.1-1.2); Monocytes Percent Auto 6.3 % (2-11); Neutrophils Absolute Auto 4.7 x10*3/uL (2.0-8.3); Neutrophils Percent Auto 65.3 % (45-73); Platelet Count 337 X10*3/uL (160-400); Red Blood Count 4.49 X10*6/uL (4.20-5.50); Red Cell Distribution Width 12.4 % (11.0-16.0); White Blood Count 7.1 X10*3/uL (4.8-10.8)
[2024-06-12 08:40] LABS: Appearance Urine Clear; Color Urine Yellow; Glucose Urine UA Negative (Negative); Leukocyte Esterase Urine Large (3+) (Negative); Nitrite Urine Negative (Negative); PH 5.5 (5.0-9.0); UMIC TRIGGER UACC YES; Urine Blood Negative (Negative); Urine Ketones Negative (Negative); Urine Protein Negative (Neg-Trace)
[2024-06-12 09:03] LABS: Bacteria Urine 3+ (None Seen); Hyaline Casts Urine 0-2 /LPF (0-2); RBC Urine 0-2 /HPF (0-2); UACC Culture Trigger YES; WBC Urine >50 /HPF (0-5)
[2024-06-12 09:08] LABS: Alanine Aminotransferase 16 U/L (0-31); Albumin Level 4.2 g/dL (3.5-5.0); Alkaline Phosphatase 63 U/L (39-117); Anion Gap 12 (12-20); Aspartate Amino Transferase 18 U/L (5-31); Bilirubin Total 0.5 mg/dL (0.0-1.0); Blood Urea Nitrogen 11 mg/dL (9-16); Calcium 9.4 mg/dL (8.4-10.2); Carbon Dioxide 23 mmol/L (22-29); Chloride 107 mmol/L (96-108); Cholesterol 199 mg/dL (<200); Estimated Glomerular Filt Rate > 60; Glucose Fasting 93 mg/dL (60-99); HDL Cholesterol 53 mg/dL (>40); LDL Cholesterol Calculated 126 mg/dL (<100); Potassium 4.1 mmol/L (3.3-5.1); Sodium 138 mmol/L (135-145); Total Protein 7.3 g/dL (6.5-8.0); Triglycerides 103 mg/dL (<150)
[2024-06-12 09:14] LABS: TSH reflex Free T4 1.84 uIU/mL (0.32-4.0)
== END 2024-06-12 07:40 | disposition home or self-care (01) ==
LOC: HO.LAB 07:39
PROVIDERS: PCP Nurse Practitioner Family; Visit Provider Nurse Practitioner Family
DX: E66.01 Morbid (severe) obesity due to excess calories (principal); E78.5 Hyperlipidemia, unspecified; R82.79 Other abnormal findings on microbiological examination of urine
CPT/HCPCS: 36415; 80053; 80061; 81001; 84443; 85025; 87086; 87088; 87186

== ENCOUNTER 2024-07-29 10:19 | Outpatient (REF) | payer OTHER, SELFPAY ==
[2024-08-03 12:49] LABS: HPV mRNA E6/E7 Not Detected (Not Detected)
== END 2024-07-29 10:20 | disposition home or self-care (01) ==
LOC: HO.LNP 10:19
PROVIDERS: PCP Nurse Practitioner Family; Visit Provider Advanced Practice Midwife
DX: Z01.419 Encounter for gynecological examination (general) (routine) without abnormal findings (principal)
CPT/HCPCS: 87624; 88175

== ENCOUNTER 2024-07-29 10:19 | Outpatient (AMB) | payer OTHER, SELFPAY ==
--- NOTE | 2024-07-29 10:22 | A.OFFVIS_ITS ---
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 Doing well with no concerns. Struggling w/weight loss despite medical treatment which did not work, has follow up w/PCP to discuss. Lost 70 pounds with Keto diet in the past. She tries to eat healthy and stays active with exercise-walking at work. Regular monthly menses. had a vasectomy. She denies vaginal itching and irritation. Denies family history of ovarian or colon cancer. breast [place] [place]. Last pap smear 2018, negative. [facility] Medical History (Updated 07/29/24 @ 10:38 by Candelaria Rojas CNM) Morbid obesity HTN (hypertension) Constipation Vasovagal syncope Dyslipidemia Dyspnea Restless leg syndrome Atopic dermatitis Pacemaker Surgical History (Updated 07/29/24 @ 10:34 by ERIC Membreno) History of loop electrical excision procedure (LEEP) History of laparoscopic appendectomy (~03/17/24) Pacemaker History of lumpectomy Family History Father HTN (hypertension) Mother Asthma Son No problems noted. Daughter No problems noted. Maternal Grandmother Breast cancer Lung cancer Maternal Grandfather Diabetes mellitus Paternal Grandmother No problems noted. 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, [employer] Current occupational exposures/hazards: No Gender identity: Female Cognitive needs: No Hearing needs: No Vision needs: No Female Reproductive History Menstrual Age of Menarche: 15 Duration of menses: 3-5 days Date of last menstrual period: 07/24/24 control method: other (vasectomy) Total pregnancies: 2 Full term: 2 Number of Living Children: 2 Date of last pap smear: 03/24/19 (neg pap and hpv) History of abnormal pap smear: Yes (hx leep 2003) Review of Systems Const All systems reviewed & are unremarkable except as noted in HPI and below Reports as per HPI Eyes Reports no additional complaints ENT Reports no additional complaints Card Reports no additional complaints Resp Reports no additional complaints GI Reports as per HPI and Reports no additional complaints Reports as per HPI Musc Reports no additional complaints Skin/Breast Reports as per HPI Neuro Reports no additional complaints Psych Reports no additional complaints Endo Reports no additional complaints Gelacio/Lymph Reports no additional complaints Aller/Immun Reports no additional complaints Physical Exam Vital Signs: Last Vital Signs BP 120/74 07/29/24 10:24 Const General: cooperative, healthy appearing, no acute distress, well developed and alert Orientation/consciousness: patient oriented x3 HEENT Head: Yes normal to inspection Eyes General: appearance normal, both eyes and all related structures Neck Neck: Yes normal visual inspection Thyroid: Thyroid normal Chest Chest palpation & inspection: normal inspection of the chest and other (no puckering, dimpling, peau de orange, retraction, discharge, masses) Breast/axilla inspection: normal inspection of the breasts Breast/axilla palpation: normal palpation of the breasts Resp Effort & Inspection: normal respiratory effort GI Inspection: Yes normal to inspection Palpation (GI): Soft to palpation Rectal Exam - Female: deferred General: Yes bladder normal to palpation External Female Exam: normal external appearance and normal appearance of the urethra Speculum Exam - Vagina: normal appearance of the vagina, normal palpation and normal vaginal discharge Speculum Exam - Cervix: normal appearance of the cervix, normal palpation and Other cervical findings present (Bled slightly with Pap) Bimanual exam- vagina & uterus: normal bimanual exam, normal palpation, uterine size normal, bladder normal to palpation, normal palpation and non-tender Bimanual Exam- Adnexa, other: no masses Skin General skin exam: no rashes or lesions noted Rashes: no rashes Neuro General: patient oriented x3 Cognition (Neuro): normal cognition Extrem General: Yes normal to inspection Psych Attitude: cooperative Thought process: Normal thought process present Assessment & Plan Assessment & Plan (1) Encounter for well woman exam with routine gynecological exam: Code(s): Z01.419 - Encounter for gynecological examination (general) (routine) without abnormal findings Category: Medical Plan Discussed: Current recommendations for pap smears per ASCCP guidelines. Pap obtained today. Breast awareness and periodic breast exams. Maintain a healthy lifestyle including a well balanced diet and routine exercise. Consider attempting the keto diet again. Monitor menstrual cycles, report any unscheduled bleeding, bleeding episodes <24 days apart or heavy/prolonged menstrual bleeding. Call the office for a follow up for any concerns. Patient verbalizes understanding and agrees to the plan of care. She was given opportunity to ask questions and all questions were answered to the best of my ability. RTO in one year for annual floriculture teacher examination. This note is constructed using voice recognition software. While every effort has been made to ensure accuracy, building insulation supervisor errors may have been included. Coding Level of Care Code Est Pt Prev Care 18-39y(39384) Diagnoses Encounter for well woman exam with routine gynecological exam Z01.419
[2024-07-29 10:24] VITALS: BP 120/74
== END 2024-07-29 10:54 | disposition home or self-care (01) ==
PROVIDERS: PCP Nurse Practitioner Family; Visit Provider Advanced Practice Midwife
DX: Z01.419 Encounter for gynecological examination (general) (routine) without abnormal findings (principal)
CPT/HCPCS: 99395

== ENCOUNTER 2024-07-30 09:46 | Outpatient (AMB) | payer OTHER, SELFPAY ==
--- NOTE | 2024-07-30 09:52 | A.OFFPC_ITS ---
Vital Signs 07/30/24 09:53 Height 5 ft 9 in Weight 273 lb 6 oz BMI 40.4 BP 122/68 Blood Pressure Location Rt brachial Position Sitting Pulse 88 Pulse Source Pulse Oximeter Pulse Oximetry (%) 98 Oxygen Delivery Method Room Air Intake Visit Reasons: Weight Discuss Intake Note: Pt is here to discuss weight Allergies No Known Allergies Allergy (Verified 07/30/24 10:04) Medication List - Last Reconciled 07/30/24 by DERRELL Govea labetalol 200 mg PO BID 90 days tirzepatide (weight loss) (Zepbound) 2.5 mg (0.5 mL) subcut QWEEK valacyclovir 500 mg PO DAILY PRN Tobacco use date assessed: 05/28/24 Dental Screening Dental Screen Date: 05/28/24 HPI Weight Discuss HPI Details Pt was taking wegovy for weight loss for approx 5.5 months total. She has tried up to 2.4mg with minimal weight loss (weight in January was 288lbs, today it is 273lbs). She has tried dieting and has been seen by bariatrics, which helped minimally. Will send zepbound. Denies fever, chills, and dizziness. [facility] Medical History Morbid obesity HTN (hypertension) Constipation Vasovagal syncope Dyslipidemia Dyspnea Restless leg syndrome Atopic dermatitis Pacemaker Surgical History History of loop electrical excision procedure (LEEP) History of laparoscopic appendectomy (~03/17/24) Pacemaker History of lumpectomy Family History Father HTN (hypertension) Mother Asthma Son No problems noted. Daughter No problems noted. Maternal Grandmother Breast cancer Lung cancer Maternal Grandfather Diabetes mellitus Paternal Grandmother No problems noted. 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, [employer] Current occupational exposures/hazards: No Gender identity: Female Cognitive needs: No Hearing needs: No Vision needs: No Female Reproductive History Menstrual Age of Menarche: 15 Questionnaire Thrive Questionnaire Date Thrive assessed: 07/30/24 I am a: Patient What is your living situation today?: I have a steady place to live Within the past 12 months, did the food you bought not last and you didn't have the money to get more?: Never true Within the past 12 months, did you worry whether your food would run out before you got money to buy more?: Never true Do you have trouble paying for medicines?: No Do you have trouble getting transportation to medical appointments?: No Do you have trouble paying your heating and electricity bill?: No Do you have trouble taking care of your child, family member or friend?: No Do you have trouble with day-to-day activities such as bathing, preparing meals, shopping, managing finances, etc.?: No Are you currently unemployed and looking for a job?: No Are you interested in more education?: No Please select the resources that you would like help with: None Currently or been in a relationship where the following occur: No concerns reported THRIVE Score: 0 AUDIT C Alcohol Use Questionnaire (AUDIT-C) 1. How often do you have a drink containing alcohol?: Monthly or less 2. How many drinks containing alcohol do you have on a typical day when you are drinking?: 1 or 2 3. How often do you have six or more drinks on one occasion?: Never Total Score: 1 Score Reviewed/Action Taken: Yes CATRACHO-7 AMB Questionnaire CATRACHO-7 Date CATRACHO - 7 assessed: 05/28/24 Source: Developed by Drs. Yifan Ayers, Madai Eckert, Alonzo Hackett and colleagues, with an educational brenden from [employer]. Review of Systems Const Reports as per HPI Physical exam (Primary Care) Vital Signs: Last Vital Signs Pulse 88 07/30/24 09:53 BP 122/68 07/30/24 09:53 Pulse Ox 98 07/30/24 09:53 Oxygen Delivery Method Room Air 07/30/24 09:53 Tobacco/Smoking Status: Tobacco use Status Tobacco use date assessed 05/28/24 07/30/24 09:54 Patient Tobacco Use Status Former Tobacco user 07/30/24 09:54 Tobacco use type Cigarette 07/30/24 09:54 e-Cigarette/Vaping Use Never Used 07/30/24 09:54 Thrive Assessment: Date of Thrive Assessment Date Thrive assessed 07/30/24 07/30/24 09:57 Currently or been in a relationship where the following occur: No concerns r eported Const General: cooperative Nutritional Appearance: obese morbidly obese Orientation/consciousness: patient oriented x3 Resp Effort & Inspection: normal respiratory effort Auscultation: clear to auscultation bilaterally Cardio Rate: regular rate Rhythm: regular rhythm Heart sounds: S1 normal heart sound present and S2 normal heart sound present Neuro General: patient oriented x3 Psych Appearance: grossly normal Mental Status: mental status grossly normal Speech and movement: Normal speech and movement present Affect: normal affect Attitude: cooperative Thought process: Normal thought process present Thought content: Normal thought content present Insight: Good insight present (Psych) Judgement: Good judgement present (Psych) Coding Level of Care Code Est Pt Level 3 (68827) Diagnoses Morbid obesity E66.01 Dyslipidemia E78.5 Assessment & Plan Assessment & Plan (1) Morbid obesity: Code(s): E66.01 - Morbid (severe) obesity due to excess calories Category: Medical Plan: Starting zepbound (2) Dyslipidemia: Code(s): E78.5 - Hyperlipidemia, unspecified Category: Medical Plan: suggest zepbound for weight loss, which should help with lowering choles/LDL. Plan The patient agreed to the use of a medical assistant supervisor for this encounter. Scribed for DERRELL Blanco by Lydia Loomis medical assistant supervisor, on 07/30/2024 at 10:00 EST. Medications: New tirzepatide (weight loss) (Zepbound) for 4 weeks 2.5 mg (0.5 mL) subcut QWEEK 2 mL 0RF
[2024-07-30 09:53] VITALS: BP 122/68; PULSE 88; O2SAT 98; BMI 40.4
== END 2024-07-30 12:25 | disposition home or self-care (01) ==
PROVIDERS: PCP Nurse Practitioner Family; Visit Provider Nurse Practitioner Family
DX: E78.5 Hyperlipidemia, unspecified (principal); E66.01 Morbid (severe) obesity due to excess calories; Z68.41 Body mass index [BMI] 40.0-44.9, adult

== ENCOUNTER → 2024-07-30 09:46 | Outpatient (BNVA) | payer OTHER, SELFPAY | PROVIDERS: PCP Nurse Practitioner Family; Visit Provider Nurse Practitioner Family ==

== ENCOUNTER → 2024-09-10 23:59 | Outpatient (BNV) | payer OTHER, SELFPAY ==
--- NOTE | 2024-09-16 15:30 | MHC.OFFVIS ---
Intake Visit Reasons: Remote device check- Medtronic Allergies No Known Allergies Allergy (Verified 07/30/24 10:04) [facility] Medical History Morbid obesity HTN (hypertension) Constipation Vasovagal syncope Dyslipidemia Dyspnea Restless leg syndrome Atopic dermatitis Pacemaker Surgical History History of loop electrical excision procedure (LEEP) History of laparoscopic appendectomy (~03/17/24) Pacemaker History of lumpectomy Family History Father HTN (hypertension) Mother Asthma Son No problems noted. Daughter No problems noted. Maternal Grandmother Breast cancer Lung cancer Maternal Grandfather Diabetes mellitus Paternal Grandmother No problems noted. 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 Pacemaker function is adequate [id number] Cardiac Device Interrogation, pacemaker Procedure code (CPT) selection complete Assessment & Plan Assessment & Plan (1) Pacemaker: Comment: Dual-chamber Medtronic pacemaker placed, February 2018 Code(s): Z95.0 - Presence of cardiac pacemaker Category: Medical Plan: See above Coding Level of Care Code Procedure Only Diagnoses Pacemaker Z95.0 CPT Codes Cardiac Device Check - Cardiac Device 12: [id number] Cardiac Device Interrogation, pacemaker ([id number])
== END ==
PROVIDERS: PCP Nurse Practitioner Family; Visit Provider Internal Medicine Cardiovascular Disease
DX: Z45.018 Encounter for adjustment and management of other part of cardiac pacemaker (principal)
CPT/HCPCS: 93294

== ENCOUNTER 2024-09-21 13:45 | Outpatient (AMB) | payer OTHER, SELFPAY ==
--- NOTE | 2024-09-21 13:49 | A.OFFPC_ITS ---
Vital Signs 09/21/24 13:50 Height 5 ft 9 in Weight 282 lb BMI 41.6 BP 130/74 Blood Pressure Location Lt brachial Position Sitting Pulse 78 Pulse Source Pulse Oximeter Pulse Oximetry (%) 97 Intake Visit Reasons: PE Intake Note: pt is here for PE Accompanied by: Self / Same As Patient Allergies No Known Allergies Allergy (Verified 09/21/24 14:05) Medication List - Last Reconciled 09/21/24 by Michael Gilbert [facility] labetalol 200 mg PO BID 90 days tirzepatide (weight loss) 5 mg (0.5 mL) subcut QWEEK valacyclovir 500 mg PO DAILY PRN Tobacco use date assessed: 05/28/24 Dental Screening Dental Screen Date: 05/28/24 HPI PE HPI Details History of Present Illness The patient is a 39-year-old female presenting with concerns associated with an annual physical examination. During the evaluation, the patient reported symptoms consistent with an upper respiratory tract infection, which began after returning from a trip last Saturday. The symptoms have included nasal congestion and a sore throat due to postnasal drip, which seems to have improved with the use of nasal spray and Mucinex. The patient denies any fever, chills, or shortness of breath. She also mentioned constipation, which she had since her younger years. She reports using MiraLAX every other day to improve bowel movements and notes that she feels better after moving her bowels although it is often in small amounts. Constipation is particularly noticeable outside of menstrual cycles, during which difficulty with bowel movements seems to improve. Additionally, the patient reports experiencing right hip pain and some stiffness upon rising in the morning, which she describes as fluid-like discomfort in the hip area. This has been correlated with imaging findings of sacroiliitis indicating inflammation of the sacroiliac joints. The patient also expressed concern about her inability to lose weight despite dietary management, and her uterus is noted to be enlarged (seen on previous CT) without further symptoms suggestive of acute gynecological issues. Pt has a frame maker. 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 - Discussion of lifestyle improvements f or weight management, with emphasis on portion control and dietary adjustments. - Consideration for a pelvic ultrasound to further investigate uterine enlargement. Social History - The patient is . - She recently returned from a vacation in [place]. - Diet consists of three main meals a da y; emphasis on portions with occasional intake of carbohydrates such as bagels and rice. - Reports drinking approximately 96 ounc es of water daily. - Patient denies regular physical exerci se, citing a sedentary lifestyle with activity limited to daily responsibilities. - Experiences stress related to holiday preparations. Review of Systems - Respiratory: Denies chest pain, shortn ess of breath; Reports nasal congestion, sore throat. - Neurological: Denies changes in sleep patterns, though reports poor sleep quality as baseline. - Gastrointestinal: Reports constipation ; denies nausea or diarrhea. - Musculoskeletal: Reports right hip windy n and stiffness. Physical Exam General: Cooperative, healthy appearing, comfortable, no acute distress and well developed, morbidly obese Orientation: Patient oriented x3 Limitations: No limitations Head: Normal to inspection Ears: Tms intact Nose: Normal external nose present Face and sinus: Normal facial exam Eyes: Appearance normal, both eyes and all related structures Neck: Normal visual inspection and Yes full ROM, no lymphadenopathy Respiratory: Normal respiratory effort and able to speak in complete sentences. Clear to auscultation bilaterally Cardiovascular: Regular rate and rhythm. Normal S1 and S2 GI: Normal to inspection. Soft to palpation and nontender Skin: No rashes or lesions noted Neuro: Patient oriented x3 Extremities: Normal to inspection Results - Imaging suggests sacroiliitis, indicat ing inflammation of SI joints. - Pelvic ultrasound recommended for furt her evaluation of uterine enlargement. Plan - Continue symptomatic treatment for upp er respiratory infection with nasal spray and Mucinex, re-evaluate for antibiotics if symptoms persist or worsen. - Recommend daily use of MiraLAX for man aging constipation. - Initiate pelvic ultrasound to assess u terine enlargement. - Plan for weight management through nut ritional counseling and portion control. - Follow-up in four months for re-evalua tion of current conditions and overall health status. Patient was informed and verbally consented to the use of an ambient scribe for clinic note documentation during this visit. Discussion Notes Patient Instructions - Continue using nasal spray and Mucinex as needed for respiratory symptoms. - Take MiraLAX daily to alleviate consti pation. - Maintain hydration with at least 96 ou nces of water per day. - Focus on portion control and dietary a djustments to aid weight management. - Schedule and complete a pelvic ultraso und - Follow up in four months or sooner if symptoms persist or worsen (BIBLE WORKER). - Seek immediate care if experiencing ne w or worsening symptoms. [facility] Medical History Morbid obesity HTN (hypertension) Constipation Vasovagal syncope Dyslipidemia Dyspnea Restless leg syndrome Atopic dermatitis Pacemaker Surgical History History of loop electrical excision procedure (LEEP) History of laparoscopic appendectomy (~03/17/24) Pacemaker History of lumpectomy Family History Father HTN (hypertension) Mother Asthma Son No problems noted. Daughter No problems noted. Maternal Grandmother Breast cancer Lung cancer Maternal Grandfather Diabetes mellitus Paternal Grandmother No problems noted. 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 72987 - PHQ-9 Billing: Patient declined-do not bill Source: Developed by Drs. Yifan Ayers, Madai Eckert, Alonzo Hackett and colleagues, with an educational brenden from [employer]. Thrive Questionnaire Date Thrive assessed: 09/21/24 I am a: Patient What is your living situation today?: I have a steady place to live Within the past 12 months, did the food you bought not last and you didn't have the money to get more?: Never true Within the past 12 months, did you worry whether your food would run out before you got money to buy more?: Never true Do you have trouble paying for medicines?: No Do you have trouble getting transportation to medical appointments?: No Do you have trouble paying your heating and electricity bill?: No Do you have trouble taking care of your child, family member or friend?: No Do you have trouble with day-to-day activities such as bathing, preparing meals, shopping, managing finances, etc.?: No Are you currently unemployed and looking for a job?: No Are you interested in more education?: No Please select the resources that you would like help with: None Currently or been in a relationship where the following occur: No concerns reported THRIVE Score: 0 CATRACHO-7 AMB Questionnaire CATRACHO-7 Date CATRACHO - 7 assessed: 05/28/24 Source: Developed by Drs. Yifan Ayers, Madai Eckert, Alonzo Hackett and colleagues, with an educational brenden from [employer]. Physical exam (Primary Care) Vital Signs: Last Vital Signs Pulse 78 09/21/24 13:50 BP 130/74 09/21/24 13:50 Pulse Ox 97 09/21/24 13:50 BMI result Body Mass Index 41.6 Tobacco/Smoking Status: Tobacco use Status Tobacco use date assessed 05/28/24 09/21/24 13:53 Patient Tobacco Use Status Former Tobacco user 09/21/24 13:53 Tobacco use type Cigarette 09/21/24 13:53 e-Cigarette/Vaping Use Never Used 09/21/24 13:53 Thrive Assessment: Date of Thrive Assessment Date Thrive assessed 09/21/24 09/21/24 13:53 Currently or been in a relationship where the following occur: No concerns reported Coding Level of Care Code Est Pt Prev Care 18-39y(72074) Diagnoses Physical exam Z00.00 Large uterus N85.2 Right hip pain M25.551 Morbid obesity E66.01 Assessment & Plan Assessment & Plan (1) Physical exam: Code(s): Z00.00 - Encounter for general adult medical examination without abnormal findings Category: Medical (2) Large uterus: Code(s): N85.2 - Hypertrophy of uterus Category: Medical (3) Right hip pain: Code(s): M25.551 - Pain in right hip Category: Medical (4) Morbid obesity: Code(s): E66.01 - Morbid (severe) obesity due to excess calories Category: Medical Plan . Orders: Orders Complete Blood Count Auto Diff Today Z00.00 - Encounter for general adult medical examination without abnormal findings UA CC w/rflx Micro + Cult Today Z00.00 - Encounter for general adult medical examination without abnormal findings XR hip RT min 2V Today M25.551 - Pain in right hip Comprehensive [place]. Panel Fast Today Z00.00 - Encounter for general adult medical examination without abnormal findings TSH reflex Free T4 Today Z00.00 - Encounter for general adult medical examina tion without abnormal findings Lipid Panel Today Z00.00 - Encounter for general adult medical examination without abnormal findings US pelvic and transvaginal Today N85.2 - Hypertrophy of uterus Referrals Medical Weight Management Referral E66.01 - Morbid (severe) obesity due to excess calories Medications: Changed From tirzepatide (weight loss) for 4 weeks 5 mg (0.5 mL) subcut QWEEK 2 mL 0RF To tirzepatide (weight loss) for 4 weeks 7.5 mg (0.5 mL) subcut QWEEK 2 mL 0RF
[2024-09-21 13:50] VITALS: BP 130/74; PULSE 78; O2SAT 97; BMI 41.6
== END 2024-09-21 14:37 | disposition home or self-care (01) ==
PROVIDERS: PCP Nurse Practitioner Family; Visit Provider Nurse Practitioner Family
DX: Z00.00 Encounter for general adult medical examination without abnormal findings (principal); E66.01 Morbid (severe) obesity due to excess calories; Z68.41 Body mass index [BMI] 40.0-44.9, adult; N85.2 Hypertrophy of uterus; M25.551 Pain in right hip

== ENCOUNTER → 2024-09-21 13:45 | Outpatient (BNVA) | payer OTHER, SELFPAY | PROVIDERS: PCP Nurse Practitioner Family; Visit Provider Nurse Practitioner Family ==

== ENCOUNTER 2024-10-02 14:53 | Outpatient (REF) | payer OTHER, SELFPAY | END 2024-10-02 14:54 | disposition home or self-care (01) | LOC: HO.US 14:53 | PROVIDERS: PCP Nurse Practitioner Family; Visit Provider Nurse Practitioner Family | DX: N85.2 Hypertrophy of uterus (principal) | CPT/HCPCS: 76830; 76856 ==

== ENCOUNTER → 2024-10-02 14:56 | Outpatient (BNV) | payer OTHER, SELFPAY | PROVIDERS: PCP Nurse Practitioner Family; Visit Provider Radiology Diagnostic Radiology | DX: N83.202 Unspecified ovarian cyst, left side (principal); D25.9 Leiomyoma of uterus, unspecified | CPT/HCPCS: 76830; 76856 ==

== ENCOUNTER 2024-10-06 08:07 | Outpatient (REF) | payer OTHER, SELFPAY ==
[2024-10-06 08:17] LABS: MANUAL DIFF FLAG NO
[2024-10-06 08:36] LABS: Basophils Absolute Auto 0.1 X10*3/uL (0.0-0.2); Eosinophils Absolute Auto 0.3 X10*3/uL (0.0-0.4); Eosinophils Percent Auto 3.9 % (0-4); Hematocrit 40.9 % (37.0-47.0); Hemoglobin 13.7 g/dl (12.0-16.0); Imm Gran Abs Auto 0.01 X10*3/uL (0.00-0.03); Imm Gran Pct Auto 0.1 % (0.0-0.4); Lymphocytes Absolute Auto 1.9 X10*3/uL (1.2-4.9); Mean Corpuscular HGB Conc 33.5 g/dl (31.0-35.0); Mean Corpuscular Hemoglobin 30.5 pg (27.0-33.0); Mean Corpuscular Volume 91.1 fL (80.0-98.0); Monocytes Absolute Auto 0.4 X10*3/uL (0.1-1.2); Monocytes Percent Auto 5.5 % (2-11); Neutrophils Absolute Auto 4.9 x10*3/uL (2.0-8.3); Neutrophils Percent Auto 64.5 % (45-73); Platelet Count 338 X10*3/uL (160-400); Red Blood Count 4.49 X10*6/uL (4.20-5.50); White Blood Count 7.6 X10*3/uL (4.8-10.8)
[2024-10-06 08:54] LABS: Appearance Urine Clear; Color Urine Yellow; Glucose Urine UA Negative (Negative); Leukocyte Esterase Urine Negative (Negative); Nitrite Urine Negative (Negative); PH 5.5 (5.0-9.0); Urine Blood Negative (Negative); Urine Ketones Negative (Negative); Urine Protein Negative (Neg-Trace)
[2024-10-06 09:25] LABS: Alanine Aminotransferase 14 U/L (0-31); Albumin Level 3.9 g/dL (3.5-5.0); Alkaline Phosphatase 54 U/L (39-117); Anion Gap 10 (12-20); Aspartate Amino Transferase 21 U/L (5-31); Bilirubin Total 0.5 mg/dL (0.0-1.0); Blood Urea Nitrogen 11 mg/dL (9-16); Calcium 8.5 mg/dL (8.4-10.2); Carbon Dioxide 24 mmol/L (22-29); Chloride 109 mmol/L (96-108); Cholesterol 207 mg/dL (<200); Estimated Glomerular Filt Rate > 60; Glucose Fasting 93 mg/dL (60-99); HDL Cholesterol 55 mg/dL (>40); LDL Cholesterol Calculated 129 mg/dL (<100); Potassium 4.2 mmol/L (3.3-5.1); Sodium 139 mmol/L (135-145); Total Protein 6.8 g/dL (6.5-8.0); Triglycerides 118 mg/dL (<150)
[2024-10-06 09:41] LABS: TSH reflex Free T4 1.95 uIU/mL (0.32-4.0)
== END 2024-10-06 08:08 | disposition home or self-care (01) ==
LOC: HO.LAB 08:07
PROVIDERS: PCP Nurse Practitioner Family; Visit Provider Nurse Practitioner Family
DX: Z00.00 Encounter for general adult medical examination without abnormal findings (principal); E66.01 Morbid (severe) obesity due to excess calories; E78.5 Hyperlipidemia, unspecified
CPT/HCPCS: 36415; 80053; 80061; 81003; 84443; 85025

== ENCOUNTER → 2024-11-19 08:23 | Outpatient (BNV) | payer OTHER, SELFPAY | PROVIDERS: PCP Nurse Practitioner Family; Visit Provider Radiology Diagnostic Radiology | DX: N85.2 Hypertrophy of uterus (principal); N83.202 Unspecified ovarian cyst, left side | CPT/HCPCS: 72197 ==

== ENCOUNTER 2024-11-19 08:32 | Outpatient (REF) | payer OTHER, SELFPAY ==
--- NOTE | ~2024-11-19 | MR_ITS ---
EXAMINATION: MR PELVIS WITHOUT THEN WITH IV CONTRAST HISTORY: N85.2 - Hypertrophy of uterus. TECHNIQUE: Axial T1 and fat-suppressed T2, and sagittal, axial, and coronal T2-weighted MR images of the pelvis were obtained. Subsequently, axial fat-suppressed T1-weighted images were obtained before and after the intravenous administration of 10 mL Gadavist. COMPARISON: Correlation is made with a CT of the pelvis dated 03/16/2024 and a pelvic ultrasound dated 10/02/2024. FINDINGS: The uterus is retroverted and retroflexed. There are nabothian cysts in the cervix. The junctional zone is not thickened. There is a fundal fibroid measuring 4.5 x 3.9 x 4.3 cm. An additional 1.1 cm fibroid is seen in the uterine body on the left. The endometrium is thickened and heterogeneous in appearance measuring up to 2.5 cm in thickness. Multiple small cystic spaces are seen within the endometrium. There is heterogeneous enhancement. A polyp or neoplasm is not excluded. The right ovary is unremarkable. There are multiple left ovarian cysts, the largest of which measures 2.9 x 2.0 x 2.5 cm. This is smaller than on the prior ultrasound (previously 4.1 x 3.4 x 3.2 cm). There is no associated enhancement or soft tissue nodularity. There is no ascites or pelvic lymphadenopathy. The visualized bones demonstrate normal marrow signal intensity. MR/MR pelvis wo/w con IMPRESSION: 1. 4.5 x 3.9 x 4.3 cm fundal fibroid. 1.4 cm left uterine body fibroid. 2. Markedly thickened and heterogeneous endometrium. Polyp/neoplasm is not excluded. 3. Multiple left ovarian cysts measuring up to 2.9 x 2.0 x 2.5 cm. This is smaller than on the prior ultrasound. Continued ultrasound follow-up is recommended to document resolution. Electronically signed by: Yifan Marquis MD 11/19/2024 10:18 AM [facility] [place] [place]
--- OUTSIDE RECORDS SUMMARY | 2024-11-19 08:38 | XMS_ITS | Clinical Summary ---
Author Organization [facility] Facility Address [address] [address] Care Team Providers Care Wire Tester Name Role Phone Michael Gilbert NP Primary Care Provider [phone] Social History Tobacco Use Types Packs/Day Years Used Date Smoking Tobacco: Never Assessed Comments Unknown Sex and Gender Information Value Date Recorded Sex Assigned at Not on file Legal Sex Female 10:20 AM EDT Gender Identity Not on file Sexual Orientation Not on file Plan of Treatment Health Maintenance Due Date Last Done Comments Hepatitis B Vaccine (1 of 3 - 19+ 3-dose series) 2005 Influenza Vaccine (#1) 2024 Pneumococcal Vaccine: Pediat rics (0 to 5 Years) and At-Risk Patients (6 to 64 Years) Aged Out No longer eligi ble based on patient's age to complete this topic Insurance COMPREHENSIVE BENEFITS COMPREHENSIVE BENEFITS Care Teams Wire Tester Relationship Specialty Start Date End Date Michael Gilbert NP [address] [place] [address] PCP - General Nurse Practitioner 02/14/22
[2024-11-19] MEDS: gadobutroL 10 ML VIAL IVPUSH (09:44)
== END 2024-11-19 08:33 | disposition home or self-care (01) ==
LOC: HO.MRI 08:32
PROVIDERS: PCP Nurse Practitioner Family; Visit Provider Nurse Practitioner Family
DX: R93.89 Abnormal findings on diagnostic imaging of other specified body structures (principal); N85.2 Hypertrophy of uterus
CPT/HCPCS: 72197; A9585

== ENCOUNTER 2024-11-26 13:58 | Outpatient (AMB) | payer OTHER, SELFPAY ==
[2024-11-26 14:03] VITALS: BP 110/72; BMI 41.6
--- NOTE | 2024-11-26 14:03 | A.OFFVIS_ITS ---
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 The patient has been having irregular menstrual cycles associated with pelvic cramping and back pain the last few months. In addition the patient is complaining of vaginal foul odor with no associated vulvovaginal itching. 10/31 pelvic ultrasound showed the following: IMPRESSION: 1. Endometrial thickness is 14 mm, however demonstrates several small subendometrial cystic foci, a finding which can represent adenomyosis or hyperplasia. 2. Dominant cyst in the left ovary measuring 4.1 cm with a 8 mm daughter cyst internally. Given patient age, a follow-up ultrasound in 6 weeks could be considered, or conversely, MRI could be performed, which would also better evaluate the endometrial findings. 3. Normal right ovary. 4. Uterus is retroverted and retroflexed. There are 2 uterine fibroids, largest is intramural in the right fundus measuring 5.3 cm in maximal diameter. 12/01 pelvic MRI showed the following: The uterus is retroverted and retroflexed. There are nabothian cysts in the cervix. The junctional zone is not thickened. There is a fundal fibroid measuring 4.5 x 3.9 x 4.3 cm. An additional 1.1 cm fibroid is seen in the uterine body on the left. The endometrium is thickened and heterogeneous in appearance measuring up to 2.5 cm in thickness. Multiple small cystic spaces are seen within the endometrium. There is heterogeneous enhancement. A polyp or neoplasm is not excluded. The right ovary is unremarkable. There are multiple left ovarian cysts, the largest of which measures 2.9 x 2.0 x 2.5 cm. This is smaller than on the prior ultrasound (previously 4.1 x 3.4 x 3.2 cm). There is no associated enhancement or soft tissue nodularity. There is no ascites or pelvic lymphadenopathy. The visualized bones demonstrate normal marrow signal intensity. Last co testing in 07/30 was negative [facility] Medical History Morbid obesity HTN (hypertension) Constipation Vasovagal syncope Dyslipidemia Dyspnea Restless leg syndrome Atopic dermatitis Pacemaker Surgical History History of loop electrical excision procedure (LEEP) History of laparoscopic appendectomy (~03/17/24) Pacemaker History of lumpectomy Family History Father HTN (hypertension) Mother Asthma Son No problems noted. Daughter No problems noted. Maternal Grandmother Breast cancer Lung cancer Maternal Grandfather Diabetes mellitus Paternal Grandmother No problems noted. 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, [employer] Current occupational exposures/hazards: No Gender identity: Female Cognitive needs: No Hearing needs: No Vision needs: No Female Reproductive History Menstrual Age of Menarche: 15 Date of last menstrual period: 08/04/20 Total pregnancies: 2 Full term: 2 Review of Systems Card Reports as per HPI and Reports no additional complaints Resp Reports as per HPI and Reports no additional complaints GI Reports as per HPI and Reports no additional complaints Reports as per HPI Physical Exam Vital Signs: Last Vital Signs BP 110/72 11/26/24 14:03 BMI result Body Mass Index 41.6 Const General: cooperative, healthy appearing and comfortable Resp Effort & Inspection: normal respiratory effort Auscultation: clear to auscultation bilaterally Percussion: percussion normal Cardio Palpation: normal PMI Rate: regular rate Rhythm: regular rhythm Heart sounds: no murmurs and no rubs Peripheral pulses: Peripheral pulses 2+ throughout GI Inspection: Yes normal to inspection Palpation (GI): Soft to palpation, nontender, no guarding, not rigid and No hepatosplenomegaly present Percussion: Yes normal to percussion Auscultation: normal bowel sounds Rectal Exam - Female: deferred Assessment & Plan Assessment & Plan (1) Abnormal uterine bleeding (AUB): Comment: Retroverted uterus Abnormal endometrium possible polyp versus neoplasia per MRI Code(s): N93.9 - Abnormal uterine and vaginal bleeding, unspecified Category: Medical Plan: Discussed with the patient the different causes of abnormal bleeding including thyroid disorders, uterine and ovarian pathology, endometrial hyperplasia, carcinoma and other potential causes. Discussed with the patient the work up done recently included CBC (to r/o anemia), TSH, , pelvic Ultrasound an MRI, endometrial sampling to r/o endometrial pathology including polyp, endometrial hyperplasia and/or malignancy and others. Recommended to the patient that the next step is an endometrial sampling via hysteroscopy D&C possible polypectomy versus endometrial biopsy to r/o endometrial pathology including hyperplasia or cancer. All the pros and cons risks and benefits of each approach were discussed with the patient, endometrial biopsy being less invasive, office procedure with less sensitivity and inability diagnose a polyp and removal versus hysteroscopy done under anesthesia more invasive more sensitive to endometrial cancer and possibility of diagnosing and endometrial polyp with the possibility of polypectomy. All questions were answered pt verbalized understanding and decided to proceed with hysteroscopy D&C possible polypectomy/myomectomy. Discussed with the patient the procedure , all benefits and risks including but not limited to inability to complete the procedure , insufficient endometrial tissue for a complete evaluation of the endometrial cavity , bleeding, infection, possible need for blood transfusion with all its risk ( HIV,syphilis, Hepatitis, anaphylaxis shock, others..), injury to bladder, rectum, possible need for laparoscopy/laparotomy or hysterectomy. The patient verbalized understanding and signed the consent. Instructions given the patient to stay NPO after midnight the day prior to the procedure and to hold off Tirzepatide for a week prior to the procedure. All questions answered, the patient verbalized understanding (2) Uterine myoma: Code(s): D25.9 - Leiomyoma of uterus, unspecified Category: Medical Plan: Discussed with the patient the results of the ultrasound and the size of the myomas. Discussed with the patient risk of myosarcoma and symptoms that are caused by myomas including but not limited to pelvic pain, pressure symptoms, abnormal uterine bleeding. In addition discussed with the patient options of treatment for myomas including: Serial ultrasounds periodically to follow-up on the size of the myoma while targeting the treatment against fibroids related symptoms ( control pills, Mirena IUD, progesterone treatment, GnRH agonist/antagonist, uterine artery embolization or endometrial ablation) versus surgical treatment including hysterectomy and or myomectomy. All pros and cons, risks and benefits of all options were discussed with the patient. The patient understands that delay in surgical treatment in case of myosarcoma can affect her prognosis, after further discussion, the patient decided to think about it and get back to us next visit (3) Bacterial vaginosis: Code(s): N76.0 - Acute vaginitis; B96.89 - Other specified bacterial agents as the cause of diseases classified elsewhere Category: Medical Plan: GC and chlamydia cultures with BV panel taken. Will treat with Flagyl 500 mg p.o. b.i.d. x 7 days, Instructions given to the patient to refrain from sexual activity or to use condoms consistently and correctly during the BV treatment regimen, not to douch, it might increase the risk for relapse, and to call if symptoms persist or recur. Orders: Orders CT NG by PCR Today N89.8 - Other specified noninflammatory disorders of vagina Bacterial Vaginosis Panel Today N89.8 - Other specified noninflammatory disorders of vagina Medications: New metronidazole 500 mg PO BID 7 days 14 tabs 0RF Coding Level of Care Code Est Pt Level 3 (13419) Diagnoses Abnormal uterine bleeding (AUB) N93.9 Uterine myoma D25.9 Bacterial vaginosis N76.0; B96.89
--- OUTSIDE RECORDS SUMMARY | 2024-11-26 14:59 | XMS_ITS | Clinical Summary ---
Author Organization [facility] Facility Address [address] [address] Care Team Providers Care Section Gang Name Role Phone Michael Gilbert NP Primary Care Provider [phone] Social History Tobacco Use Types Packs/Day Years [...] Insurance COMPREHENSIVE BENEFITS COMPREHENSIVE BENEFITS Care Teams Section Gang Relationship Specialty Start Date End Date Michael Gilbert NP [address] [place] [address] PCP - General Nurse Practitioner 02/14/22
== END 2024-11-26 14:55 | disposition home or self-care (01) ==
LOC: HO.HWS 13:58
PROVIDERS: PCP Nurse Practitioner Family; Visit Provider Obstetrics & Gynecology
DX: N93.9 Abnormal uterine and vaginal bleeding, unspecified (principal); D25.9 Leiomyoma of uterus, unspecified; N76.0 Acute vaginitis; B96.89 Other specified bacterial agents as the cause of diseases classified elsewhere
CPT/HCPCS: 99213

== ENCOUNTER 2024-11-26 13:58 | Outpatient (REF) | payer OTHER, SELFPAY ==
--- OUTSIDE RECORDS SUMMARY | 2024-11-26 15:50 | XMS_ITS | Clinical Summary ---
Author Organization [facility] Facility Address [address] [address] Care Team Providers Care Claim Investigator Name Role Phone Michael Gilbert NP Primary Care Provider [phone] Social History Tobacco Use Types Packs/Day Years [...] Insurance COMPREHENSIVE BENEFITS COMPREHENSIVE BENEFITS Care Teams Claim Investigator Relationship Specialty Start Date End Date Michael Gilbert NP [address] [place] [address] PCP - General Nurse Practitioner 02/14/22
[2024-11-27 04:39] LABS: CT PCR NOT DETECTED (Not Detect.); NG PCR NOT DETECTED (Not Detect.)
[2024-11-27 13:25] LABS: Bacterial Vaginosis PCR NEGATIVE (Negative); Candida Group PCR NOT DETECTED (Not Detect); Candida glab krusei PCR NOT DETECTED (Not Detect); Trichomonas vaginalis PCR NOT DETECTED (Not Detect)
== END 2024-11-26 13:59 | disposition home or self-care (01) ==
LOC: HO.LNP 13:58
PROVIDERS: PCP Nurse Practitioner Family; Visit Provider Obstetrics & Gynecology
DX: N89.8 Other specified noninflammatory disorders of vagina (principal)
CPT/HCPCS: 81515; 87491; 87591

== ENCOUNTER 2024-11-29 08:35 | Emergency (ER) | payer OTHER, SELFPAY ==
--- NOTE | ~2024-11-29 | XR_ITS ---
CLINICAL HISTORY: pain, injury 3 view left ankle Comparison: None Findings: normal alignment without acute fracture. Small heterotopic ossification along the dorsal aspect of the talonavicular joint. No ankle effusion. No radiopaque foreign body. Small posterior superior calcaneal spur. Small distal leg pretibial phlebolith. IMPRESSION: 1. No acute findings. This document has been electronically signed by: Dominga Montes MD on 11/29/2024 09:16:58
--- NOTE | ~2024-11-29 | XR_ITS ---
CLINICAL HISTORY: pain, injury 4 view left foot Comparison: None Findings: Normal alignment. 6 mm ossified focus projecting medial to the talar head may be due to a somewhat posteriorly positioned os navicular (correlate clinically for possible posterior tibialis tendon injury) or age-indeterminate fracture fragment with an indeterminate donor site. On the oblique view, 6 mm ossified focus projecting between the distal aspects of the talus and calcaneus may be due to an age-indeterminate fracture fragment. Small density projecting along the lateral soft tissues of the 5th toe on the oblique view may be artifactual/external to the patient or due to a foreign body. Lateral forefoot soft tissue swelling in the vicinity of the 5th metatarsophalangeal joint. Posterior calcaneal spur. IMPRESSION: 6 mm ossified focus projecting medial to the talar head may be due to a somewhat posteriorly positioned os navicular (correlate clinically for possible posterior tibialis tendon injury) or age-indeterminate fracture fragment with an indeterminate donor site. On the oblique view, 6 mm ossified focus projecting between the distal aspects of the talus and calcaneus may be due to an age-indeterminate fracture fragment. Small density projecting along the lateral soft tissues of the 5th toe on the oblique view may be artifactual/external to the patient or due to a foreign body. This document has been electronically signed by: Dominga Montes MD on 11/29/2024 09:24:48
--- NOTE | 2024-11-29 08:36 | ED_ITS ---
HPI - General Adult General Chief complaint: Extremity Injury, Lower Stated complaint: fall, twisted ankle Time Seen by Provider: 11/29/24 09:35 Source: patient and family (patient's ) Mode of arrival: other (crutches) Limitations: no limitations History of Present Illness ED Provider: Liz Suárez PA-C HPI narrative: Patient is a 39 year old assigned female at with a history of HTN presenting to the emergency department today with left ankle and foot pain. Patient states that yesterday, she missed a step and fell. Patient states that her feet were bent backwards and now she is continuing to have pain in her left foot / ankle and is unable to put pressure on it. Patient denies any dizziness, lightheadedness, abdominal pain, nausea, vomiting, fever, chills, blurry vision, double vision, loss of vision, chest pain, difficulty breathing, shortness of breath, back pain, night sweats, pain with urination, increased urinary frequency, increased urinary urgency, blood in her urine or stool, syncope or a near syncopal episode, bowel incontinence, bladder incontinence, or any other complaints at this time. Severity: mild Relieving factors: immobilization Exacerbating factors: movement Associated symptoms: denies other symptoms Treatments prior to arrival: none Related Data Previous Rx's ?Medication ?Instructions ?Recorded labetalol 200 mg tablet 200 mg PO BID 90 days #180 tabs 05/25/24 valacyclovir 500 mg tablet 500 mg PO DAILY PRN oral #60 tabs 09/01/24 tirzepatide (weight loss) 10 10 mg (0.5 mL) subcut QWEEK #2 mL 10/19/24 mg/0.5 mL subcutaneous pen injector Zepbound 12.5 mg/0.5 mL 12.5 mg (0.5 mL) subcut QWEEK #2 mL 11/18/24 subcutaneous pen injector (tirzepatide (weight loss)) metronidazole 500 mg tablet 500 mg PO BID 7 days #14 tabs 11/26/24 Allergies Allergy/AdvReac Type Severity Reaction Status Date / Time No Known Allergies Allergy Verified 11/29/24 08:41 Review of Systems 2 Constitutional: Constitutional: Reports no additional constitutional complaints, Denies chills, Denies fever(s) and Denies night sweats Eyes: Eyes: Reports no additional eye complaints, Denies blurry vision, Denies change in vision, Denies diplopia, Denies eye discharge, Denies loss of vision and Denies eye pain ENT: Denies dizziness Cardiovascular: Cardiovascular: Reports no additional cardiovascular complaints, Denies chest pain, Denies lightheadedness, Denies Loss of Consciousness and Denies dyspnea Respiratory: Respiratory: Reports no additional respiratory complaints and Denies dyspnea Gastrointestinal: Gastrointestinal: Reports no additional gastrointestinal complaints, Denies abdominal pain, Denies melena, Denies hematochezia, Denies change in bowel habits and Denies change in stool character Genitourinary: Genitourinary: Denies hematuria, Denies urinary frequency, Denies dysuria, Denies urinary incontinence, Denies urinary hesitancy and Denies urinary urgency Musculoskeletal: Musculoskeletal: Reports no additional musculoskeletal complaints, Denies numbness and Denies tingling Comments: left foot and ankle pain Neurologic: Denies dizziness, Denies loss of vision, Denies numbness and Denies tingling Psychiatric: Psychiatric: Reports no additional psychiatric complaints Endocrine: Endocrine: Reports no additional endocrine complaints Hematologic/Lymphatic: Hematologic/Lymphatic: Reports no additional hematologic/lymphatic complaints Allergic/Immunologic: Allergic/Immunologic: Reports no additional allergic/immunologic complaints PMFSH Past Medical History Attestation statement: The following information was validated with the patient. (all information validated with the patient's ) Source: old records reviewed, obtained from family (patient's provided additional history and confirmed the history provided by the patient.) and nursing notes reviewed Medical History Morbid obesity HTN (hypertension) Constipation Vasovagal syncope Dyslipidemia Dyspnea Restless leg syndrome Atopic dermatitis Pacemaker Surgical History History of loop electrical excision procedure (LEEP) History of laparoscopic appendectomy (~03/17/24) Pacemaker History of lumpectomy Family History Family History Father HTN (hypertension) Mother Asthma Son No problems noted. Daughter No problems noted. Maternal Grandmother Breast cancer Lung cancer Maternal Grandfather Diabetes mellitus Paternal Grandmother No problems noted. Paternal Grandfather HTN (hypertension) Diabetes mellitus Heart disease Social History Social History Household Members: Family Household Members Other:: children 11 and 12yo Housing: House Do you presently have visiting nurse or other home services: No Alcohol intake: current Alcohol intake frequency: holidays/special occasions only Alcohol type: wine Comment: COUNT CORRECT Patient Tobacco Use Status: Former Tobacco user Tobacco use type: Cigarette Years Smoked: 6 years e-Cigarette/Vaping Use: Never Used Second Hand Smoke Exposure: No Advance Directives: Yes Advance Directives Information Provided: No Advance Directives on File: No service: No Current occupational status: employed 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, [employer] Current occupational exposures/hazards: No Gender identity: Female Cognitive needs: No Hearing needs: No Vision needs: No Physical Exam ED Vital Signs: Vital Signs - 24 hr 11/29/24 08:37 11/29/24 10:21 Temperature 98.1 F 98.1 F Pulse Rate 93 93 Respiratory Rate 18 18 Blood Pressure 121/70 121/70 Pulse Oximetry 98 98 Oxygen Delivery Method Room Air Room Air BMI result Body Mass Index 39.1 Const General: cooperative, no acute distress, alert and awake Nutritional Appearance: well nourished Orientation/consciousness: patient oriented x3 Limitations: no limitations HENMT Head: Yes normal to inspection and Yes atraumatic Ears: hearing grossly normal bilaterally and external ears normal General nose exam: Normal external nose present, no nasal discharge noted and no epistaxis Face and sinus: Yes normal facial exam, No abrasion and No laceration Mouth: Normal oral and palatal mucosa present, no drooling and no muffled voice Eyes General: appearance normal, both eyes and all related structures Periorbital: periorbital findings normal Eyelids: Yes eyelids normal Conjunctivae: conjunctivae normal Pupils: Equal, round and reactive pupils present EOM: EOMs intact bilaterally Neck Neck: Yes normal visual inspection, Yes full ROM and Yes no lymphadenopathy Chest Chest palpation & inspection: normal inspection of the chest Resp Effort & Inspection: normal respiratory effort and able to speak in complete sentences GI Inspection: Yes normal to inspection Neuro General: patient oriented x3, moves all extremities and CN's II-XI intact bilaterally Cranial nerves: Yes Equal, round and reactive pupils present Cognition (Neuro): normal cognition Extrem General: Yes capillary refill normal Ankle/foot/toe images: 2 1. pain with palpation of the highlighted area. Pain radiates up the leg. Psych Appearance: grossly normal Mental Status: mental status grossly normal Affect: normal affect Attitude: cooperative Thought process: Normal thought process present Thought content: Normal thought content present Insight: Good insight present (Psych) Course Course Course Narrative: RME performed by Liz Suárez PA-C. Patient is a 39 year old assigned female at presenting to the emergency department with left ankle pain. Patient states that she missed a step and twisted her left ankle and foot. Detailed physical exam and review of systems are deferred to the facility manager histology. Imaging ordered. Patient placed back in the waiting room pending room availability and results. Procedures Orthopedic Splinting/Casting Injury #1: Side: left Lower Extremity Injury Location: ankle and foot Lower Extremity Immobilizer: posterior splint and stirrup splint Other Orthopedic Equipment: crutches (patient had her own set she brought with her) Medical Decision Making Medical Decision Making MDM Narrative: Patient is a 39 year old assigned female at with a history of HTN presenting to the emergency department today with left ankle and foot pain. Patient's physical exam was as noted in the physical exam portion of this note. Patient's left foot and ankle x-rays showed a 6mm ossified focus projecting medial to the talar head which may represent a posterior tibialis tendon injury or fracture. Given the patient's examination and mechanism of injury, will treat as though it is an acute fracture. I explained my physical exam findings as well as all test results to the patient and the patient's . I answered all questions asked by the patient and the patient's . Patient's left foot/ankle was placed in a posterior short leg splint with stirrup, without incident. Patient's PMS was intact prior to and after splint placement. I stressed the importance of the patient taking her medication as directed (either prescribed or as the over the counter packaging recommends). I stressed the importance of the patient following up with her primary care provider and an orthopedic provider. I stressed the importance of the patient returning to the emergency department immediately if her symptoms were to worsen or if she were to develop any dizziness, shortness of breath, difficulty breathing, chest pain, blurry vision, loss of vision, nausea, vomiting, abdominal pain, fever, chills, back pain, or any other complaints. Patient and the patient's verbalized agreement and understanding with this treatment plan and discharge. Differential Diagnosis Differential Diagnoses: The differential diagnosis associated with the presentation includes Left ankle fracture Left ankle sprain Left ankle strain Left foot fracture Left foot strain Admission/Observation Consideration of admission/observation: Escalation of care including admission/observation considered Patient would have been admitted to the hospital had her work up had any findings where hospital admission was appropriate and her clinical presentation warranted hospital admission. Independent Interpretation I performed an independent interpretation of an: Plain X-Ray Interpretation: My interpretation is in agreement with the radiologist's impression of these imaging studies. L CLINICAL HISTORY: pain, injury 4 view left foot Comparison: None Findings: Normal alignment. 6 mm ossified focus projecting medial to the talar head may be due to a somewhat posteriorly positioned os navicular (correlate clinically for possible posterior tibialis tendon injury) or age-indeterminate fracture fragment with an indeterminate donor site. On the oblique view, 6 mm ossified focus projecting between the distal aspects of the talus and calcaneus may be due to an age-indeterminate fracture fragment. Small density projecting along the lateral soft tissues of the 5th toe on the oblique view may be artifactual/external to the patient or due to a foreign body. Lateral forefoot soft tissue swelling in the vicinity of the 5th metatarsophalangeal joint. Posterior calcaneal spur. IMPRESSION: 6 mm ossified focus projecting medial to the talar head may be due to a somewhat posteriorly positioned os navicular (correlate clinically for possible posterior tibialis tendon injury) or age-indeterminate fracture fragment with an indeterminate donor site. On the oblique view, 6 mm ossified focus projecting between the distal aspects of the talus and calcaneus may be due to an age-indeterminate fracture fragment. Small density projecting along the lateral soft tissues of the 5th toe on the oblique view may be artifactual/external to the patient or due to a foreign body. This document has been electronically signed by: Dominga Montes MD on 11/29/2024 09:24:48 Dictated By: Dominga Montes MD Signed By: Electronically signed by Dominga Montes MD 11/29/24 0925 CLINICAL HISTORY: pain, injury 3 view left ankle Comparison: None Findings: Normal alignment without acute fracture. Small heterotopic ossification along the dorsal aspect of the talonavicular joint. No ankle effusion. No radiopaque foreign body. Small posterior superior calcaneal spur. Small distal leg pretibial phlebolith. IMPRESSION: 1. No acute findings. This document has been electronically signed by: Dominga Montes MD on 11/29/2024 09:16:58 Dictated By: Dominga Montes MD Signed By: Electronically signed by Dominga Montes MD 11/29/24 0917 Radiology Impression Discussion of test interpretation with radiology: I have reviewed the radiologist's reading. Independent Historian Clinical information obtained from an independent historian. History obtained from or confirmed by: Spouse (patient's provided additional history and confirmed the history provided by the patient.) Discharge Plan Discharge Clinical Impression: Ankle fracture, Foot fracture Patient Disposition: Home, Self-Care Instructions: Ankle Fracture (DC), Crutch Instructions (ED), Foot Fracture in Adults (ED) Additional Instructions: Absolutely NO weight bearing on the left lower extremity. Do NOT get your splint wet. Do NOT remove your splint. If you have any change in sensation, movement, or color of your left toes - you may loosen the outer DIANA wraps. If you find yourself loosening the DIANA wraps to the point of seeing the white splint material underneath - STOP and proceed to your closest Emergency Department immediately. Follow up with your primary care provider and an orthopedic provider. Return to the emergency department immediately if your symptoms worsen or if you develop any dizziness, shortness of breath, difficulty breathing, chest pain, blurry vision, loss of vision, nausea, vomiting, abdominal pain, fever, chills, back pain, or any other complaints. Prescriptions: No Action labetalol 200 mg tablet 200 mg PO BID 90 Days Qty: 180 3RF valacyclovir 500 mg tablet 500 mg PO DAILY PRN (Reason: oral) Qty: 60 0RF tirzepatide (weight loss) 10 mg/0.5 mL pen injector 10 mg subcut QWEEK Qty: 2 0RF Rx Instructions: for 4 weeks Zepbound 12.5 mg/0.5 mL pen injector 12.5 mg subcut QWEEK Qty: 2 2RF metronidazole 500 mg tablet 500 mg PO BID 7 Days Qty: 14 0RF Referrals: [facility] [Provider Group] (Call to establish and follow up with an orthopedic provider.) Michael Gilbert FNP-BC [Primary Care Provider] - Stand Alone Forms: Work/School Release Interventions: ED Discharge Assessment Last Done: 11/29/24 10:21 Discharge Date/Time: 11/29/24 10:22 Print Language: Haitian
[2024-11-29 08:37] VITALS: BP 121/70; PULSE 93; RESP 18; TEMP 36.7; O2SAT 98; BMI 39.1
[2024-11-29 10:21] VITALS: BP 121/70; PULSE 93; RESP 18; TEMP 36.7; O2SAT 98
--- NOTE | 2024-11-29 10:21 | PC.NURSE ---
splint applied by provider pt discharged by provider in [place]
== END 2024-11-29 10:22 | disposition home or self-care (01) ==
PROVIDERS: Emergency Provider Emergency Medicine; PCP Nurse Practitioner Family
DX: S82.892A Other fracture of left lower leg, initial encounter for closed fracture (principal); S92.902A Unspecified fracture of left foot, initial encounter for closed fracture; M25.572 Pain in left ankle and joints of left foot; W10.9XXA Fall (on) (from) unspecified stairs and steps, initial encounter; Y93.9 Activity, unspecified; Y92.9 Unspecified place or not applicable; Y99.8 Other external cause status
CPT/HCPCS: 29125; 29515; 73610; 73630; 99282; 99283; 99284

== ENCOUNTER → 2024-11-29 08:37 | Outpatient (BNV) | payer OTHER, SELFPAY | PROVIDERS: Emergency Provider Emergency Medicine; PCP Nurse Practitioner Family; Visit Provider Radiology Diagnostic Radiology | DX: M25.572 Pain in left ankle and joints of left foot (principal) | CPT/HCPCS: 73610; 73630 ==

== ENCOUNTER 2024-12-14 10:42 | Outpatient (AMB) | payer OTHER, SELFPAY ==
--- NOTE | 2024-12-14 10:46 | A.OFFVIS_ITS ---
Vital Signs 12/14/24 11:01 Height 5 ft 9 in Weight 265 lb BMI 39.1 Intake Visit Reasons: FC- Left Talus/Calcaneus fx DOI 11/28/24 Intake Note: Ellen is a 39 year old female who presents today for a fracture care visit of left talus/calcaneus fracture, DOI 11/28/24. Patient reports that she missed the last a step while going down the stairs on 11/28/23. She presented to [facility] ED the following day where x-rays were taken and placed in a posterior and stirrup splint. She was instructed to remain non weight bearing. Currently complains of intermittent throbbing pain that is located at the lateral and medial aspect of ankle as well as her heel. She is currently working with light duty restrictions. She uses a knee scooter or crutches with ambulation. Allergies No Known Allergies Allergy (Verified 12/14/24 10:57) HPI HPI FC- Left Talus/Calcaneus fx DOI 11/28/24: Details: 39-year-old female presents to the office today for an injury she sustained to her left ankle/foot on 11/28/2024. She states she was walking down the stairs when she missed the last step and fell. She was seen in the emergency department where she was placed in a splint and referred to our office for ortho eval. [facility] Medical History Morbid obesity HTN (hypertension) Constipation Vasovagal syncope Dyslipidemia Dyspnea Restless leg syndrome Atopic dermatitis Pacemaker Surgical History History of loop electrical excision procedure (LEEP) History of laparoscopic appendectomy (~03/17/24) Pacemaker History of lumpectomy Family History Father HTN (hypertension) Mother Asthma Son No problems noted. Daughter No problems noted. Maternal Grandmother Breast cancer Lung cancer Maternal Grandfather Diabetes mellitus Paternal Grandmother No problems noted. 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, [employer] Current occupational exposures/hazards: No Gender identity: Female Cognitive needs: No Hearing needs: No Vision needs: No Female Reproductive History Menstrual Age of Menarche: 15 Review of Systems Const All systems reviewed & are unremarkable except as noted in HPI and below Physical Exam Vital Signs: BMI result Body Mass Index 39.1 Const General: cooperative and no acute distress Orientation/consciousness: patient oriented x3 Resp Effort & Inspection: normal respiratory effort and able to speak in complete sentences Cardio Peripheral pulses: Peripheral pulses 2+ throughout Neuro General: patient oriented x3 Extrem Other: Left foot is normal to inspection she does have diffuse swelling throughout the medial lateral aspect of the ankle with tenderness along the lateral soft tissues which also extend into the calcaneus. Results Reviewed Results Reviewed: IMPRESSION: 6 mm ossified focus projecting medial to the talar head may be due to a somewhat posteriorly positioned os navicular (correlate clinically for possible posterior tibialis tendon injury) or age-indeterminate fracture fragment with an indeterminate donor site. On the oblique view, 6 mm ossified focus projecting between the distal aspects of the talus and calcaneus may be due to an age-indeterminate fracture fragment. Small density projecting along the lateral soft tissues of the 5th toe on the oblique view may be artifactual/external to the patient or due to a foreign body. Assessment & Plan Assessment & Plan (1) Left ankle sprain: Code(s): S93.402A - Sprain of unspecified ligament of left ankle, initial encounter Category: Medical Plan: At this time a CT scan of the left ankle has been ordered to further the bony structures given the suspicion for an injury to the talus. He does have a pacemaker which is why a CT scan. She was also placed in a tall boot she can weightbear as tolerated however given the level of discomfort I recommend toe- touch weightbear as tolerated. I would like to see her back once the scan is complete to discuss the next step in her treatment. Orders: Orders CT ankle LT wo IV con Today S93.402A - Sprain of unspecified ligament of left ankle, initial encounter Coding Level of Care Code New Pt Level 3 (72788) Complex EM visit Add On G2211 Diagnoses Left ankle sprain S93.402A
[2024-12-14 11:01] VITALS: BMI 39.1
--- OUTSIDE RECORDS SUMMARY | 2024-12-14 12:05 | XMS_ITS | Clinical Summary ---
Author Organization [facility] Facility Address [address] [address] Care Team Providers Care Extracorporeal Technician Name Role Phone Michael Gilbert NP Primary Care Provider [phone] Social History Tobacco Use Types Packs/Day Years [...] Insurance COMPREHENSIVE BENEFITS COMPREHENSIVE BENEFITS Care Teams Extracorporeal Technician Relationship Specialty Start Date End Date Michael Gilbert NP [address] [place] [address] PCP - General Nurse Practitioner 02/14/22
== END 2024-12-14 11:43 | disposition home or self-care (01) ==
PROVIDERS: PCP Nurse Practitioner Family; Visit Provider Physician Assistant
DX: S93.402A Sprain of unspecified ligament of left ankle, initial encounter (principal)
CPT/HCPCS: 99203

== ENCOUNTER 2024-12-22 09:37 | Outpatient (REF) | payer OTHER, SELFPAY ==
--- NOTE | ~2024-12-22 | CT_ITS ---
CLINICAL HISTORY: S93.402A - Sprain of unspecified ligament of left ankle, initial encounter Examination: Noncontrast CT left ankle Indication: Sprain Comparison: Radiograph 11/29/2024 Findings: No fracture or malalignment. Mild degenerative changes are present. Moderate soft tissue edema noted trace ankle joint effusion. Impression: No fracture or malalignment. Mild degenerative changes and soft tissue changes as detailed. This document has been electronically signed by: Julio Lawrence MD on 12/23/2024 18:02:04
--- OUTSIDE RECORDS SUMMARY | 2024-12-22 10:36 | XMS_ITS | Clinical Summary ---
Author Organization [facility] Facility Address [address] [address] Care Team Providers Care Schedule Announcer Name Role Phone Michael Gilbert NP Primary Care Provider [phone] Social History Tobacco Use Types Packs/Day Years [...] Insurance COMPREHENSIVE BENEFITS COMPREHENSIVE BENEFITS Care Teams Schedule Announcer Relationship Specialty Start Date End Date Michael Gilbert NP [address] [place] [address] PCP - General Nurse Practitioner 02/14/22
== END 2024-12-22 09:38 | disposition home or self-care (01) ==
LOC: HO.CT 09:37
PROVIDERS: PCP Nurse Practitioner Family; Visit Provider Physician Assistant
DX: S93.402A Sprain of unspecified ligament of left ankle, initial encounter (principal)
CPT/HCPCS: 73700

== ENCOUNTER → 2024-12-22 09:41 | Outpatient (BNV) | payer OTHER, SELFPAY | PROVIDERS: PCP Nurse Practitioner Family; Visit Provider Radiology Vascular & Interventional Radiology | DX: S93.402A Sprain of unspecified ligament of left ankle, initial encounter (principal) | CPT/HCPCS: 73700 ==

== ENCOUNTER 2024-12-30 10:45 | Day surgery (SDC) | payer OTHER, SELFPAY ==
--- OUTSIDE RECORDS SUMMARY | 2024-12-14 15:53 | XMS_ITS | Clinical Summary ---
Author Organization [facility] Facility Address [address] [address] Care Team Providers Care Air Shovel Operator Name Role Phone Michael Gilbert NP Primary Care Provider [phone] Social History Tobacco Use Types Packs/Day Years [...] Insurance COMPREHENSIVE BENEFITS COMPREHENSIVE BENEFITS Care Teams Air Shovel Operator Relationship Specialty Start Date End Date Michael Gilbert NP [address] [place] [address] PCP - General Nurse Practitioner 02/14/22
[2024-12-17 16:08] VITALS: BMI 39.5
[2024-12-28 07:59] VITALS: BMI 41.6
--- NOTE | 2024-12-30 11:01 | MHC.SHP ---
Pre-Procedural Eval Section A - 24 Hr Update-Section A only Date of Service: 12/30/24 The patient is an INPATIENT: No Changes since office visit: No Cold of Flu in the past 2 weeks, No New Medical Problems, No Changes in Medication and No Patient answered all questions The patient has been examined within 24 hours of the surgical procedure. The History & Physical has been completed within 30 days and I have reviewed it.: Yes Section B - Complete if H&P > 30 days Chief Complaint: Abnormal uterine and vaginal bleeding, Allergies: Allergies Allergy/AdvReac Type Severity Reaction Status Date / Time No Known Allergies Allergy Verified 12/17/24 15:54 Plan Diagnosis/Plan: Unchanged I have reviewed the history and physical and performed a pertinent physical examination on my patient. No changes have occurred unless specified. Time Spent With Patient Time: Total time managing care of this patient today ____ minutes.
[2024-12-30 11:06] VITALS: BP 126/71; PULSE 82; RESP 14; TEMP 36.8; O2SAT 97
[2024-12-30] MEDS: Lactated Ringers 1,000 ML 80 ML IVCONT (11:13)
[2024-12-30 11:14] LABS: UPreg QC Valid YES; Urine Pregnancy NEGATIVE (NEGATIVE)
--- NOTE | 2024-12-30 11:54 | HO.ANESPROP2 ---
HPI - Anesthesia Eval Consult details Narrative: hysteroscopy PMFSH Active Problems Active Problems: All Active Problems Left ankle sprain (Acute) Bacterial vaginosis (Acute) Uterine myoma (Acute) Abnormal uterine bleeding (AUB) (Acute) Abnormal pelvic ultrasound (Acute) Abnormal MRI, pelvis (Acute) Right hip pain (Acute) Large uterus (Acute) Encounter for well woman exam with routine gynecological exam (Acute) S/P laparoscopic appendectomy (Acute) Obesity (Acute) Morbid obesity (Acute) Dyslipidemia (Acute) HTN (hypertension) (Acute) Pacemaker (Acute) Past Medical History Medical History Hx of fall (11/28/24) Morbid obesity HTN (hypertension) Constipation Vasovagal syncope Dyslipidemia Dyspnea Restless leg syndrome Atopic dermatitis Pacemaker Family History Family History Father HTN (hypertension) Mother Asthma Son No problems noted. Daughter No problems noted. Maternal Grandmother Breast cancer Lung cancer Maternal Grandfather Diabetes mellitus Paternal Grandmother No problems noted. Paternal Grandfather HTN (hypertension) Diabetes mellitus Heart disease Family history of problems with anesthesia: No Surgical History Surgical History History of loop electrical excision procedure (LEEP) History of laparoscopic appendectomy (03/17/24) Pacemaker (02/05/18) History of lumpectomy History of Problems with Anesthesia: No Social History Social History Household Members: Family Household Members Other:: children 11 and 12yo Housing: House Are you a primary life care planner to a significant other at home: Yes (children 11+12) Do you presently have visiting nurse or other home services: No Alcohol intake: current Alcohol intake frequency: holidays/special occasions only Alcohol type: wine Comment: non weight bearing, scooter for longer distances Patient Tobacco Use Status: Former Tobacco user Tobacco use type: Cigarette Years Smoked: 6 years Smoked in Last 30 Days: No e-Cigarette/Vaping Use: Never Used Second Hand Smoke Exposure: No Use of substances other than those prescribed or required for medical reasons: No Have you been hit, kicked, punched, or otherwise hurt by someone within the past year? 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, [employer] Current occupational exposures/hazards: No Gender identity: Female Cognitive needs: No Hearing needs: No Vision needs: No Meds Allergies Allergy/AdvReac Type Severity Reaction Status Date / Time No Known Allergies Allergy Verified 12/30/24 11:02 Active Medications: Current Medications Lactated Ringer's (Lr) 1,000 mls @ 80 mls/hr IVCONT .[id number] ETHEL Last Admin: 12/30/24 11:13 Dose: 80 mls/hr Exam Height,Weight and Vital Signs: Height 5 ft 9 in Weight 127.913 kg Last Vital Signs Temp 98.3 F 12/30/24 11:06 Pulse 82 12/30/24 11:06 Resp 14 12/30/24 11:06 BP 126/71 12/30/24 11:06 Pulse Ox 97 12/30/24 11:06 O2 Del Method Room Air 12/30/24 11:06 Pertinent Lab Results Pertinent Lab Results: Laboratory Tests 12/30/24 10:45 Urine Test NEGATIVE Airway Mallampati Class: II TM Dist: >3cm Neck ROM: Full Heart: rrr Lungs: ta Assessment and Plan Assessment Anesthesia Assessment: Anesthesia Plan Discussed and Chart Reviewed Final Anesthetic Review Family History of Problems with Anesthesia: No History of Problems with Anesthesia: No NPO: Yes ASA Class: III (pacer for sinus maximino with syncope ) Final Preanesthetic Review: No Changes in Pt Med Stat, Meds/Allgs Chart Reviewed, Consent Obtained/Reviewed and Anes Risks/Benef Reviewed Patient Risk: Intermediate Procedure Risk: Low Anesthetic Plan Anesthetic Plan: GA Disposition: Standard PACU
--- NOTE | 2024-12-30 13:02 | P.BOP_ITS ---
Brief Operative Note Date of Service: 12/30/24 Pre-op diagnosis: Abnormal uterine bleeding, abnormal endometrium possible endometrial polyp by MRI Post-op diagnosis: same (? Endometrial polyp) Procedure: Hysteroscopy D&C, Polypectomy Surgeon: Yazan Perez MD Anesthesia: GLMA Was an Camera Assembler used for this Procedure?: No Estimated blood loss (mL): 0 Pathology: other (Endometrial Scrapping. Polyp) Condition: stable Disposition: PACU
--- NOTE | 2024-12-30 13:03 | P.OP_ITS ---
Operative Note Operative Note Date of Service: 12/30/24 Narrative: Preop Diagnosis: Abnormal uterine bleeding, abnormal endometrium with ? endometrial polyp by MRI Operation: Diagnostic Hysteroscopy, Dilataion & Curettage and polypectomy Post Op Diagnosis: ? Endometrial Polyp QBL: Minimal Anesthesia: GLMA Surgeon: Yazan Perez MD Wheel Blocker: None Complication: None Pathology: Endometrial Scrapings, Endometrial polyp Procedure: The patient was put in the dorsal lithotomy position, scrubbed, and draped in the usual manner. A sterile speculum was inserted in the patient's vagina. The anterior lip of the cervix was grasped with a single tooth tenaculum. The cervix was dilated up to 5 mm, then the scope was inserted in the patient's uterus. Inspection revealed left uterine wall area suspicious for endometrial polyp. The Myosure Reach device was used; it was introduced through the operative channel and polypectomy done with no complications. The scope was then taken out from the uterine cavity, sharp curettings was carried on with minimal to moderate amount of tissues retrieved. At the end of the procedure, all instruments were taken out of the patient uterine and vaginal cavity. The single tooth tenaculum was removed and homeostasis was assured using pressure,. The patient tolerated the procedure well and was transferred to the PACU in a stable condition.
[2024-12-30 13:15] VITALS: BP 108/69; PULSE 91; RESP 18; O2SAT 97
[2024-12-30 13:20] VITALS: BP 129/76; PULSE 91; RESP 18; TEMP 36.4; O2SAT 97
[2024-12-30 13:25] VITALS: BP 100/50; PULSE 91; RESP 18; O2SAT 97
[2024-12-30 13:40] VITALS: BP 119/56; PULSE 73; RESP 18; TEMP 36.2; O2SAT 97
== END 2024-12-30 14:11 | disposition home or self-care (01) ==
PROVIDERS: PCP Nurse Practitioner Family; Visit Provider Obstetrics & Gynecology
PROC: 0UDB8ZZ Extraction of Endometrium, Via Natural or Artificial Opening Endoscopic (ICD-10-PCS; CPT 58558; principal; 2024-12-30 12:00)
DX: N93.9 Abnormal uterine and vaginal bleeding, unspecified (principal); N84.0 Polyp of corpus uteri; N83.202 Unspecified ovarian cyst, left side; I10 Essential (primary) hypertension; E78.5 Hyperlipidemia, unspecified; R06.00 Dyspnea, unspecified; R55 Syncope and collapse; Z95.0 Presence of cardiac pacemaker; E66.01 Morbid (severe) obesity due to excess calories; Z68.41 Body mass index [BMI] 40.0-44.9, adult; G25.81 Restless legs syndrome; K59.00 Constipation, unspecified; L20.9 Atopic dermatitis, unspecified; Z79.899 Other long term (current) drug therapy; Z87.891 Personal history of nicotine dependence
CPT/HCPCS: 58558; 81025; 88305; J1100; J1885; J2003; J2250; J2405; J2704; J3010

== ENCOUNTER → 2024-12-30 10:45 | Outpatient (BNV) | payer OTHER, SELFPAY | PROVIDERS: PCP Nurse Practitioner Family; Visit Provider Obstetrics & Gynecology | DX: N84.0 Polyp of corpus uteri (principal); N93.9 Abnormal uterine and vaginal bleeding, unspecified | CPT/HCPCS: 58558 ==

== ENCOUNTER 2025-01-06 09:43 | Outpatient (AMB) | payer OTHER, SELFPAY ==
--- NOTE | 2025-01-06 09:45 | MHC.OFFVIS ---
Intake Visit Reasons: post op Accompanied by: Self / Same As Patient Allergies No Known Allergies Allergy (Verified 01/06/25 09:47) HPI Comments Details: The patient is presenting post hysteroscopy D&C no complaints minimal vaginal bleeding no feverishness chills or abdominal pain. The pathology showed the following: A. Endometrium, curettage: Benign disordered proliferative endometrium, fragments of benign endometrial polyp, and benign endocervical glandular and squamous epithelium; no atypia or carcinoma. B. Endometrial polyp, resection: Fragments of benign endometrial polyp; no atypia or carcinoma. The following workup was done.: H&H= 13.7/40.9 in 09/29 TSH, GC and chlamydia were negative. Co testing was done in 07/30 was negative. Pelvic ultrasound showed the following: IMPRESSION: 1. Endometrial thickness is 14 mm, however demonstrates several small subendometrial cystic foci, a finding which can represent adenomyosis or hyperplasia. 2. Dominant cyst in the left ovary measuring 4.1 cm with a 8 mm daughter cyst internally. Given patient age, a follow-up ultrasound in 6 weeks could be considered, or conversely, MRI could be performed, which would also better evaluate the endometrial findings. 3. Normal right ovary. 4. Uterus is retroverted and retroflexed. There are 2 uterine fibroids, largest is intramural in the right fundus measuring 5.3 cm in maximal diameter. Pelvic MRI showed the following: IMPRESSION: 1. 4.5 x 3.9 x 4.3 cm fundal fibroid. 1.4 cm left uterine body fibroid. 2. Markedly thickened and heterogeneous endometrium. Polyp/neoplasm is not excluded. 3. Multiple left ovarian cysts measuring up to 2.9 x 2.0 x 2.5 cm. This is smaller than on the prior ultrasound. Continued ultrasound follow-up is recommended to document resolution. [facility] Medical History Hx of fall (11/28/24) Morbid obesity HTN (hypertension) Constipation Vasovagal syncope Dyslipidemia Dyspnea Restless leg syndrome Atopic dermatitis Pacemaker Surgical History History of loop electrical excision procedure (LEEP) History of laparoscopic appendectomy (03/17/24) Pacemaker (02/05/18) History of lumpectomy Family History Father HTN (hypertension) Mother Asthma Son No problems noted. Daughter No problems noted. Maternal Grandmother Breast cancer Lung cancer Maternal Grandfather Diabetes mellitus Paternal Grandmother No problems noted. 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 healthcare liaison to a significant other at home: Yes (children 11+12) Do you presently have visiting nurse or other home services: No Alcohol intake: current Alcohol intake frequency: holidays/special occasions only Alcohol type: wine Comment: non weight bearing, scooter for longer distances Patient Tobacco Use Status: Former Tobacco user Tobacco use type: Cigarette Years Smoked: 6 years e-Cigarette/Vaping Use: Never Used Second Hand Smoke Exposure: No Advance Directives Date on File: 03/17/24 service: No Current occupational status: employed 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, [employer] Current occupational exposures/hazards: No Gender identity: Female Cognitive needs: No Hearing needs: No Vision needs: No Female Reproductive History Menstrual Age of Menarche: 15 Review of Systems Const All systems reviewed & are unremarkable except as noted in HPI and below Reports as per HPI and Reports no additional complaints GI Reports no additional complaints Reports no additional complaints Office Procedures IUD Insert/Removal Details Details: The patient is presenting for Mirena IUD insertion Urine test was done in the office and was negative; All the contraindications were excluded. The following possible complications were discussed with the patient: Intrauterine , Ectopic , Sepsis, Pelvic Infection, Irregular Bleeding and Amenorrhea, Perforation, Expulsion, Ovarian Cysts, Breast Cancer, The following adverse effects were discussed with the patient: alteration of menstrual bleeding pattern, including: unscheduled uterine bleeding decreased uterine bleeding increased scheduled uterine bleeding female genital tract bleeding ,amenorrhea , genital discharge , vulvovaginitis , breast pain , benign ovarian cyst and associated complications , dysmenorrhea , Gastrointestinal disorders abdominal/pelvic pain, headache/migraine , back pain , acne , depression Alternative options were discussed with the patient including but not limited: control pills, patch, NuvaRing, Depo-medroxyprogesterone acetate, Nexplanon, copper IUD, sterilization, vasectomy, others The procedure was explained in detail to patient , at the end patient signed the informed consent obtained. A no touch technique was used throughout the procedure. A speculum was placed into vagina and cervix was cleaned with betadine). A tenaculum was placed. A plastic sound was advanced through the external and internal os until it reached the fundus of the uterus, the depth was 8 cm. The sound was then withdrawn. The IUD was loaded in a sterile manner and advanced into position. The string was visualized and cut to 3 cm. Tenaculum site hemostatic. All instruments removed from vagina. Patient tolerated the procedure well. NO complications were noted. Patient was instructed to call for fever over 100.4, significant pain unrelieved by Motrin, IUD expulsion, heavy bleeding, or abnormal discharge. In addition, the following clinical considerations were discussed with the patient to call for removal: A stroke or heart attack ,Very severe or migraine headaches ,Unexplained fever ,Yellowing of the skin or whites of the eyes, as these may be signs of serious liver problems , or suspected , Pelvic pain or pain during sex ,HIV positive seroconversion in herself or her partner , Possible exposure to sexually transmitted infections Unusual vaginal discharge or genital sores , severe vaginal bleeding or bleeding that lasts a long time, or if she misses a menstrual period, Inability to feel Mirena's threads Counseled the patient that the IUD does not protect against STI's, recommended use of condoms for the first 7 days post insertion and explained to the patient that condoms are recommended for patients at risk for sexually transmitted infections. Informed the patient that Mirena IUD is FDA approved for 8 years for contraception for 5 years for the treatment of heavy menses Instructed the patient to schedule a Follow up appointment in 4 to 6 weeks following insertion. This note was generated with a voice recognition program. Some errors may have been overlooked during the review of this note. Sometimes these errors may affect the content or meaning of a given sentence. 55045-LQW Insertion Procedure code (CPT) selection complete Office Meds Mirena 21 mcg/24 hr (up to 8 years) 52 mg intrauterine device Performing Provider: Yazan Perez MD Performing Location: [facility] Documented (not given) by: Yazan Perez MD on 01/06/25 10:26 Dose Route Admin Location Dispensed Lot Number Expiration Date [facility] Public [employer] Inspector 1 device intrauterine ea Assessment & Plan Assessment & Plan (1) Abnormal uterine bleeding (AUB): Code(s): N93.9 - Abnormal uterine and vaginal bleeding, unspecified Category: Medical Plan: Discussed with the patient the results of the work up done and options of treatment including Lysteda, control pills, Mirena IUD, endometrial ablation and hysterectomy. All pros, cons, risks and benefits if each option was discussed with the patient and the patient decided to go ahead with Mirena IUD so a more detailed discussion about it was conducted including mechanism of action, risks (uterine perforation, infection, injury to bladder, bowel, displacement, and others) benefits (hypo menorrhea, amenorrhea, ...). GC/CT were taken and were negative and Mirena IUD was inserted, see procedure . All questions answered, the patient verbalized understanding (2) Uterine myoma: Code(s): D25.9 - Leiomyoma of uterus, unspecified Category: Medical Plan: Discussed with the patient the findings on pelvic ultrasound & the risk of myosarcoma; in addition reviewed with the patient that malignancy and pre malignancy cannot be ruled out without hysterectomy for pathological evaluation ; furthermore, explained to the patient the limitation of pelvic ultrasound and endometrial biopsy in the setting. Discussed with the patient the options of treatment including expectant management versus hysterectomy; the pros and cons, risks benefits of each approach were discussed with the patient including the fact that in cases of myosarcoma, surgical treatment can lead to early diagnosis and positively affects the prognosis; after further discussion, the patient decided to proceed with expectant management. Will repeat pelvic ultrasound periodically. Instructions given to patient to call in case any of the following occurs: pressure symptoms, abnormal uterine bleeding, pelvic pain; and to schedule a six-months pelvic ultrasound (order placed) and a follow-up appointment . All questions answered, the patient verbalized understanding and agreed with the plan . Orders: Orders US pelvic and transvaginal 6 Months D25.9 - Leiomyoma of uterus, unspecified AMB IUD Insertion/Removal - Practice Supplied Today N93.9 - Abnormal uterine and vaginal bleeding, unspecified Medications: New Mirena (levonorgestrel) 1 device intrauterine ONCE 1 ea 0RF iud insrertion NS N93.9 - Abnormal uterine and vaginal bleeding, unspecified Coding Level of Care Code Est Pt Level 3 (10570) Procedure Only Diagnoses Abnormal uterine bleeding (AUB) N93.9 Uterine myoma D25.9 CPT Codes Details - CPT: 70773-WIC Insertion ([id number])
--- OUTSIDE RECORDS SUMMARY | 2025-01-06 11:01 | XMS_ITS | Clinical Summary ---
Author Organization [facility] Facility Address [address] [address] Care Team Providers Care Ppap Coordinator Name Role Phone Michael Gilbert NP Primary Care Provider [phone] Social History Tobacco Use Types Packs/Day Years [...] - 19+ 3-dose series) 2005 Influenza Vaccine (Season Ended) 2025 Pneumococcal Vaccine: Pediat rics (0 to 5 Years) and At-Risk Patients (6 to 64 Years) Aged Out No longer eligi ble based on patient's age to complete this topic Insurance COMPREHENSIVE BENEFITS COMPREHENSIVE BENEFITS Care Teams Ppap Coordinator Relationship Specialty Start Date End Date Michael Gilbert NP 1960 [place] [address] PCP - General Nurse Practitioner 02/14/22
== END 2025-01-06 10:34 | disposition home or self-care (01) ==
LOC: HO.HWS 09:43
PROVIDERS: PCP Nurse Practitioner Family; Visit Provider Obstetrics & Gynecology
DX: N93.9 Abnormal uterine and vaginal bleeding, unspecified (principal); D25.9 Leiomyoma of uterus, unspecified; Z32.02 Encounter for pregnancy test, result negative; Z30.430 Encounter for insertion of intrauterine contraceptive device
CPT/HCPCS: 58300; 99213

== ENCOUNTER → 2025-01-06 09:43 | Outpatient (BNVA) | payer OTHER, SELFPAY | PROVIDERS: PCP Nurse Practitioner Family; Visit Provider Obstetrics & Gynecology | DX: Z30.430 Encounter for insertion of intrauterine contraceptive device (principal); N93.9 Abnormal uterine and vaginal bleeding, unspecified; D25.9 Leiomyoma of uterus, unspecified | CPT/HCPCS: 58300; 81025; J7298 ==

== ENCOUNTER 2025-01-14 13:08 | Outpatient (AMB) | payer OTHER, SELFPAY ==
--- NOTE | 2025-01-14 13:16 | MHC.OFFVIS ---
Intake Visit Reasons: OV-Lt Talus/Calcaneus fx DOI 11/28/24 Intake Note: Ellen 39 yr old female presents today for her follow up visit for her left talus/calcaneus fx from 11/28/24. States she need a lace up brace to begin P.T. Allergies No Known Allergies Allergy (Verified 01/14/25 13:18) HPI HPI OV-Lt Talus/Calcaneus fx DOI 11/28/24: Details: 39- year old female who returns to the office today for a follow-up left ankle injury. She has begun physical therapy 2 times a week and has started to trial ambulation without the boot and she has noticed some discomfort around mid day. [facility] Medical History Hx of fall (11/28/24) Morbid obesity HTN (hypertension) Constipation Vasovagal syncope Dyslipidemia Dyspnea Restless leg syndrome Atopic dermatitis Pacemaker Surgical History History of loop electrical excision procedure (LEEP) History of laparoscopic appendectomy (03/17/24) Pacemaker (02/05/18) History of lumpectomy Family History Father HTN (hypertension) Mother Asthma Son No problems noted. Daughter No problems noted. Maternal Grandmother Breast cancer Lung cancer Maternal Grandfather Diabetes mellitus Paternal Grandmother No problems noted. 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 intensive care medicine specialist to a significant other at home: Yes (children 11+12) Do you presently have visiting nurse or other home services: No Alcohol intake: current Alcohol intake frequency: holidays/special occasions only Alcohol type: wine Comment: non weight bearing, scooter for longer distances Patient Tobacco Use Status: Former Tobacco user Tobacco use type: Cigarette Years Smoked: 6 years e-Cigarette/Vaping Use: Never Used Second Hand Smoke Exposure: No Advance Directives Date on File: 03/17/24 service: No Current occupational status: employed 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, [employer] Current occupational exposures/hazards: No Gender identity: Female Cognitive needs: No Hearing needs: No Vision needs: No Female Reproductive History Menstrual Age of Menarche: 15 Review of Systems Const All systems reviewed & are unremarkable except as noted in HPI and below Physical Exam Const General: cooperative and no acute distress Orientation/consciousness: patient oriented x3 Resp Effort & Inspection: normal respiratory effort and able to speak in complete sentences Cardio Peripheral pulses: Peripheral pulses 2+ throughout Neuro General: patient oriented x3 Extrem Other: Left foot is normal to inspection. No specific point tenderness to palpation. She has good range of motion with some weakness in plantar and dorsiflexion. Neurovascularly intact. Assessment & Plan Assessment & Plan (1) Left ankle sprain: Code(s): S93.402A - Sprain of unspecified ligament of left ankle, initial encounter Category: Medical Plan: She was transitioned to a lace-up ankle brace today and we will wean from the boot with instruction from physical therapy. She will continue to increase activities using caution with prolonged standing stair use and weight-bearing activities do not cause worsening pain or swelling. She will ice elevate and NSAID use as needed. She will see me back if there is any questions or concerns otherwise as needed. Coding Level of Care Code Est Pt Level 3 (24130) Complex EM visit Add On G2211 Diagnoses Left ankle sprain S93.402A
--- OUTSIDE RECORDS SUMMARY | 2025-01-14 15:51 | XMS_ITS | Clinical Summary ---
Author Organization [facility] Facility Address [address] [address] Care Team Providers Care Interior Design Professional Name Role Phone Michael Gilbert NP Primary Care Provider [phone] Social History Tobacco Use Types Packs/Day Years [...] Influenza Vaccine (Season Ended) 2025 Pneumococcal Vaccine: Peds ( 0 to 5 Years) and At-Risk Patients (6 to 49 Years) Aged Out No longer eligible b ased on patient's age to complete this topic Insurance Comprehensive Benefits Comprehensive Benefits Care Teams Interior Design Professional Relationship Specialty Start Date End Date Michael Gilbert NP 1960 [place] [address] PCP - General Nurse Practitioner 02/14/22
== END 2025-01-14 13:33 | disposition home or self-care (01) ==
LOC: HO.HOS 13:09
PROVIDERS: PCP Nurse Practitioner Family; Visit Provider Physician Assistant
DX: S93.402A Sprain of unspecified ligament of left ankle, initial encounter (principal)
CPT/HCPCS: 99213

== ENCOUNTER → 2025-01-14 13:08 | Outpatient (BNVA) | payer OTHER, SELFPAY | PROVIDERS: PCP Nurse Practitioner Family; Visit Provider Physician Assistant ==

== ENCOUNTER 2025-01-27 08:58 | Outpatient (RCR) | payer OTHER, SELFPAY ==
--- NOTE | 2025-01-12 11:21 | MHC.PT.EP ---
[facility] [place] Office [place] Office [place] Office [address] Kelly Ortiz [address] [phone] F: [phone] F: [phone] F: [phone] F: [phone] Physical Therapy Plan of Care Date of Evaluation: 01/12/25 Date of Surgery: NA Diagnosis: L ANKLE SPRAIN Assessment: Pt IS 39 YO F 6WKS/2DAYS POST FALL WITH L ANKLE SPRAIN (?FX FRAGMENT TALUS/CALCANEUS AREA). WAS NWB X 4 WKS (INITIALLY WITH SPLINT, THEN IN BOOT) NOW IS WBAT AND IS TO WEAN FROM BOOT. PRESENTS TO PT WITH LIMITED ROM/STRENGTH IN L ANKLE WITH SOME RESIDUAL SWELLING NOTED (Pt SHOWS PICTURE OF ANKLE 2 WKS POST FALL WITH SIGNIF SWELLING (WHEN SPLINT REMOVED)) Pt VOICES FEAR TO WALK WITH HEEL STRIKE AND PAIN WITH GT WITHOUT BOOT. ALSO REPORTS SOME PARESTHESIA AT TIMES (NOTED TODAY WITH GT IN PARALLEL BARS). 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 SHOULD BENEFIT FROM PT TO ADDRESS ISSUES WITH ANKLE TO HELP WITH PAIN MANAGEMENT AND IMPROVE FUNCTIONAL MOBILITY Frequency and Duration: The patient will be seen 2X/WK X 6 WKS Short Term Goals: 1. INCREASED AWARNESS ANKLE CARE 2. NORMALIZED GT PATTERN WITHOUT BOOT 3. DECREASED SWELLING L ANKLE (PER REPORT AND MEASUREMENTS) Hand Trimmer Goals: 1. I HEP WITH DC EX PLAN 2. DECREASED L ANKLE PAIN AT LEAST 50% WITH ADLS 3. IMPROVED LEFI (43/80 SOC) 4. INCREASED L ANKLE ROM 5 DEGREES T/O Treatment Plan: Modalities to reduce pain, spasms and effusion. Manual therapy to restore motion and function. Therapeutic exercise to improve strength and flexibility. Neuromuscular re-education for posture and balance. Therapeutic activities to return to functional activities of daily living. Electronically signed by: ILDA JOHNSON PT Please sign and return to therapist. Thank you for your referral.
--- NOTE | 2025-03-10 09:07 | MHC.PT.DC ---
[facility] [place] [facility] [place] Office [place] Office [address] Kelly Ortiz [address] [phone] F: [phone] F: [phone] F: [phone] F: [phone] Physical Therapy Discharge Report Diagnosis: L ANKLE SPRAIN Date of Surgery: NA Date of Evaluation: 01/12/25 Date of Discharge: 03/10/25 Treatments to Date: 4 Cancellations to Date: No Shows to Date: Discharge Status: Independent with HEP Patient Elected to Stop Recommend MD Follow-up Discharge Summary: PER ASSESSMENT FROM LAST PT SESSION (WITH JANET PT ON 01/27/25) 'MARNI HAD DECR SXS IN Lt LATERAL FOOT AFTER ABOVE RX-> IMPROVED GAIT MECH , INCR HER PF/ GREAT TOE P EFFORT AT END STANCE SHE TENDS TO UTILIZE LATERAL FOOT/TOES MORE PREDOMINANTELY- SORENESS LOCALIZED TO Lt PERONEAL INSERTION; REAPPLIED KT TO Lt ANKLE AND LATERAL WEDGE FOR HER CURRENT SNEAKERS THEY ENCOURAGE SUPIN/ INVERSION STRESS UPON Lt LAT ANKLE / SOFT TISSUES' Pt THEN CANCELLED FURTHER PT SESSIONS/SELF DC Electronically signed by: ILDA JOHNSON PT Please sign and return to therapist. Thank you for your referral.
== END 2025-03-10 09:08 | disposition home or self-care (01) ==
LOC: HO.PT 08:58
PROVIDERS: PCP Nurse Practitioner Family; Visit Provider Physician Assistant
DX: S93.402D Sprain of unspecified ligament of left ankle, subsequent encounter (principal)
CPT/HCPCS: 97110; 97116; 97140; 97162

== ENCOUNTER 2025-01-28 15:01 | Outpatient (AMB) | payer OTHER, SELFPAY ==
[2025-01-28 15:12] VITALS: BP 116/68; PULSE 80; O2SAT 99; BMI 39.9
--- NOTE | 2025-01-28 15:12 | MHC.PC.OV ---
Vital Signs 01/28/25 15:12 Height 5 ft 9 in Weight 270 lb 3 oz BMI 39.9 BP 116/68 Blood Pressure Location Lt brachial Position Sitting Pulse 80 Pulse Source Pulse Oximeter Pulse Oximetry (%) 99 Oxygen Delivery Method Room Air Intake Visit Reasons: 4 months f/up Allergies No Known Allergies Allergy (Verified 01/28/25 15:12) Tobacco use date assessed: 01/28/25 Dental Screening Dental Screen Date: 01/28/25 Did you have a dental visit in the last 12 months?: Yes Did you have a dental problem in the last 6 months where you did not have access to dental care?: No Was dental information given to patient?: Patient has dentist HPI 4 months f/up HPI Details Chief Complaint Follow-up for weight management and morbid obesity History of Present Illness The patient is a 39-year-old female presenting with a follow-up for weight management and morbid obesity. She is undergoing treatment with GLP-1 agonists and has made dietary adjustments, indicating significant cutbacks on calorie intake. Her activity levels have been restricted due to a left foot ankle injury occurring approx 2 months prior, necessitating the use of a supportive boot; she is currently in physical therapy for this condition. Additionally, the patient reports left shoulder pain following a fall that also resulted in the foot injury; negative findings on Ramirez, Neers, and Ginny's tests have been noted. Fortunately, her hypertension remains stable as per laboratory evaluations. Social History - Physical activity limited due to left foot and ankle injury; currently in physical therapy. - Significant dietary reduction in place as part of weight management. Health Maintenance - Ongoing management and monitoring of morbid obesity with GLP-1 agonist therapy. - Recent laboratory work indicates stable hypertension. Review of Systems - Musculoskeletal: Reports significant left foot and ankle injury, currently in physical therapy; reports left shoulder pain. - Cardiovascular: Denies symptoms related to hypertension; reported as stable by recent labs. Physical Exam General: Cooperative, healthy appearing, comfortable, no acute distress and well developed, morbidly obese Orientation: Patient oriented x3 Limitations: No limitations Head: Normal to inspection Ears: Hearing grossly normal bilaterally Nose: Normal external nose present Face and sinus: Normal facial exam Eyes: Appearance normal, both eyes and all related structures Neck: Normal visual inspection and Yes full ROM Respiratory: Normal respiratory effort and able to speak in complete sentences. Clear to auscultation bilaterally Cardiovascular: Regular rate and rhythm. Normal S1 and S2 GI: Normal to inspection. Soft to palpation and nontender Skin: No rashes or lesions noted Neuro: Patient oriented x3 Extremities: Significant left foot ankle injury, currently in physical therapy. Some left shoulder pain, pointing to deltoid region and upper trap. Negative Ramirez, negative Neers, negative Jobes. Normal to inspection otherwise. Results - Imaging ordered for left shoulder pain assessment. Plan To address morbid obesity, maintain GLP-1 agonist therapy alongside dietary adjustments. Given decreased physical activity due to a left foot and ankle injury, I advise continuing physical therapy to facilitate recovery for future activity incrementation. An x-ray for left shoulder pain has been ordered, and physical therapy might be considered if needed. Monitor essential hypertension closely, as recent labs indicate stability, with no adjustment to current management required. Discussion Notes I discussed with the patient the continued use of GLP-1 agonists and the importance of dietary modifications in managing morbid obesity. We reviewed the slow but progressive recovery from her ankle injury with physical therapy, emphasizing the necessity of rehabilitating activity levels gradually as her condition allows. Regarding her shoulder pain, an x-ray was ordered for further evaluation, and I suggested the possibility of physical therapy to alleviate symptoms if necessary. I confirmed that her blood pressure management remains effective with current treatments and advised regular monitoring. Follow-up arrangements were discussed for ongoing review and adjustment of her management plans as required. Patient Instructions - Continue taking GLP-1 agonists as directed. - Maintain reduced dietary intake. - Attend physical therapy sessions for left foot and ankle rehabilitation. - Await results from left shoulder x-ray and follow up as necessary. - Monitor blood pressure regularly at home. - Increase activity levels as tolerable with improved foot condition. [facility] Medical History Hx of fall (11/28/24) Morbid obesity HTN (hypertension) Constipation Vasovagal syncope Dyslipidemia Dyspnea Restless leg syndrome Atopic dermatitis Pacemaker Surgical History History of loop electrical excision procedure (LEEP) History of laparoscopic appendectomy (03/17/24) Pacemaker (02/05/18) History of lumpectomy Family History Father HTN (hypertension) Mother Asthma Son No problems noted. Daughter No problems noted. Maternal Grandmother Breast cancer Lung cancer Maternal Grandfather Diabetes mellitus Paternal Grandmother No problems noted. 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 home care companion to a significant other at home: Yes (children 11+12) Do you presently have visiting nurse or other home services: No Alcohol intake: current Alcohol intake frequency: holidays/special occasions only Alcohol type: wine Comment: non weight bearing, scooter for longer distances Patient Tobacco Use Status: Former Tobacco user Tobacco use type: Cigarette Years Smoked: 6 years e-Cigarette/Vaping Use: Never Used Second Hand Smoke Exposure: No Advance Directives Date on File: 03/17/24 service: No Current occupational status: employed 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 1. Little interest or pleasure in doing things: not at all 2. Feeling down, depressed, or hopeless: not at all 3. Trouble falling or staying asleep, or sleeping too much: not at all 4. Feeling tired or having little energy: not at all 5. Poor appetite or overeating: not at all 6. Feeling bad about yourself - or that you are a failure or have let yourself or your family down: not at all 7. Trouble concentrating on things, such as reading the newspaper or watching television: not at all 8. Moving or speaking so slowly that other people could have noticed. Or the opposite - being so fidgety or restless that you have been moving around a lot more than usual: not at all 9. Thoughts that you would be better off or of hurting yourself in some way: not at all Total score: 0 Depression Screening Interpretation: Negative Depression Screening Done: Yes 55517 - PHQ-9 Billing: Yes Source: Developed by Drs. Yifan Ayers, Madai Eckert, Alonzo Hackett and colleagues, with an educational brenden from [employer]. Thrive Questionnaire Date Thrive assessed: 01/28/25 I am a: Patient What is your living situation today?: I have a steady place to live Within the past 12 months, did the food you bought not last and you didn't have the money to get more?: Never true Within the past 12 months, did you worry whether your food would run out before you got money to buy more?: Never true Do you have trouble paying for medicines?: No Do you have trouble getting transportation to medical appointments?: No Do you have trouble paying your heating and electricity bill?: No Do you have trouble taking care of your child, family member or friend?: No Do you have trouble with day-to-day activities such as bathing, preparing meals, shopping, managing finances, etc.?: No Are you currently unemployed and looking for a job?: No Are you interested in more education?: No Please select the resources that you would like help with: None Currently or been in a relationship where the following occur: No concerns reported THRIVE Score: 0 AUDIT C Alcohol Use Questionnaire (AUDIT-C) 1. How often do you have a drink containing alcohol?: Monthly or less 2. How many drinks containing alcohol do you have on a typical day when you are drinking?: 1 or 2 3. How often do you have six or more drinks on one occasion?: Less than monthly Total Score: 2 Score Reviewed/Action Taken: Yes CATRACHO-7 AMB Questionnaire CATRACHO-7 Date CATRACHO - 7 assessed: 01/28/25 Feeling nervous, anxious, or on edge: 0 = Not at all Not being able to stop or control worryin = Not at all Worrying too much about different things: 0 = Not at all Trouble relaxin = Not at all Being so restless that it is hard to sit still: 0 = Not at all Becoming easily annoyed or irritable: 0 = Not at all Feeling afraid as if something awful might happen: 0 = Not at all Total CATRACHO-7 score (0-4 normal; 5-9 mild; 10-14 moderate; 15-21 severe): 0 Source: Developed by Drs. Yifan Ayers, Madai Eckert, Alonzo Hackett and colleagues, with an educational brenden from [employer]. CATRACHO-7 Assessment Billing CATRACHO-7 Assessment Tool: CATRACHO-7 Assessment 81005 Physical exam (Primary Care) Vital Signs: Last Vital Signs Pulse 80 01/28/25 15:12 BP 116/68 01/28/25 15:12 Pulse Ox 99 01/28/25 15:12 Oxygen Delivery Method Room Air 01/28/25 15:12 BMI result Body Mass Index 39.9 Tobacco/Smoking Status: Tobacco use Status Tobacco use date assessed 01/28/25 01/28/25 15:13 Patient Tobacco Use Status Former Tobacco user 01/28/25 15:13 Tobacco use type Cigarette 01/28/25 15:13 e-Cigarette/Vaping Use Never Used 01/28/25 15:13 PHQ-9: PHQ-9 Score PHQ-9: Total score 0 01/28/25 15:13 Depression Screening Interpretation: Negative Thrive Assessment: Date of Thrive Assessment Date Thrive assessed 01/28/25 01/28/25 15:13 Currently or been in a relationship where the following occur: No concerns reported Coding Level of Care Code Est Pt Level 3 (16609) Diagnoses Left shoulder pain M25.512 Morbid obesity E66.01 Primary hypertension I10 Hypertension type: primary hypertension Additional Codes CATRACHO-7 Assessment Billing - CATRACHO-7 Assessment Tool: CATRACHO-7 Assessment 58385 ([id number]) PHQ-9 - 15912 - PHQ-9 Billing: Yes ([id number]) Assessment & Plan Assessment & Plan (1) Left shoulder pain: Code(s): M25.512 - Pain in left shoulder Category: Medical (2) Morbid obesity: Code(s): E66.01 - Morbid (severe) obesity due to excess calories Category: Medical Plan: will contact me via portal on her weight loss (3) HTN (hypertension): Code(s): I10 - Essential (primary) hypertension Category: Medical Qualifiers: Hypertension type: primary hypertension Qualified Code(s): I10 - Essential (primary) hypertension Plan . Orders: Orders Complete Blood Count Auto Diff Today E66.01 - Morbid (severe) obesity due to excess calories, I10 - Essential (primary) hypertension Comprehensive [place]. Panel Fast Today E66.01 - Morbid (severe) obesity due to excess calories, I10 - Essential (primary) hypertension XR shoulder LT min 2V Today M25.512 - Pain in left shoulder TSH reflex Free T4 Today E66.01 - Morbid (severe) obesity due to excess calories, I10 - Essential (primary) hypertension UA CC w/rflx Micro + Cult Today E66.01 - Morbid (severe) obesity due to excess calories, I10 - Essential (primary) hypertension Lipid Panel Today E66.01 - Morbid (severe) obesity due to excess calories, I10 - Essential (primary) hypertension
--- OUTSIDE RECORDS SUMMARY | 2025-01-28 17:47 | XMS_ITS | Clinical Summary ---
Author Organization [facility] Facility Address [address] [address] Care Team Providers Care Endoscopy Specialty Technician Name Role Phone Michael Gilbert NP Primary Care Provider [phone] Social History Tobacco Use Types Packs/Day Years [...] to complete this [place] [address] [place] [address] Care Teams Endoscopy Specialty Technician Relationship Specialty Start Date End Date Michael Gilbert NP 1960 [place] [address] PCP - General Nurse Practitioner 02/14/22
== END 2025-01-28 15:48 | disposition home or self-care (01) ==
LOC: HO.HMCC 15:02
PROVIDERS: PCP Nurse Practitioner Family; Visit Provider Nurse Practitioner Family
DX: M25.512 Pain in left shoulder (principal); E66.01 Morbid (severe) obesity due to excess calories; I10 Essential (primary) hypertension; Z68.39 Body mass index [BMI] 39.0-39.9, adult

== ENCOUNTER → 2025-01-28 15:01 | Outpatient (BNVA) | payer OTHER, SELFPAY | PROVIDERS: PCP Nurse Practitioner Family; Visit Provider Nurse Practitioner Family | DX: E66.01 Morbid (severe) obesity due to excess calories (principal); Z68.39 Body mass index [BMI] 39.0-39.9, adult; M25.512 Pain in left shoulder; I10 Essential (primary) hypertension | CPT/HCPCS: 96127 ==

== ENCOUNTER 2025-02-15 07:42 | Outpatient (REF) | payer OTHER, SELFPAY ==
--- OUTSIDE RECORDS SUMMARY | 2025-02-15 07:45 | XMS_ITS | Clinical Summary ---
Author Organization [facility] Facility Address [address] [address] Care Team Providers Care Briquetting Machine Operator Name Role Phone Michael Gilbert NP Primary Care Provider [phone] Social History Tobacco Use Types Packs/Day Years [...] Insurance Comprehensive Benefits Comprehensive Benefits Care Teams Briquetting Machine Operator Relationship Specialty Start Date End Date Michael Gilbert NP 1960 [place] [address] PCP - General Nurse Practitioner 02/14/22
[2025-02-15 12:27] LABS: MANUAL DIFF FLAG NO
[2025-02-15 12:34] LABS: Basophils Absolute Auto 0.1 X10*3/uL (0.0-0.2); Basophils Percent Auto 0.8 % (0-2); Eosinophils Absolute Auto 0.3 X10*3/uL (0.0-0.4); Eosinophils Percent Auto 4.8 % (0-4); Hematocrit 38.1 % (37.0-47.0); Hemoglobin 12.1 g/dl (12.0-16.0); Imm Gran Abs Auto 0.02 X10*3/uL (0.00-0.03); Imm Gran Pct Auto 0.3 % (0.0-0.4); Lymphocytes Absolute Auto 2.1 X10*3/uL (1.2-4.9); Lymphocytes Percent Auto 30.3 % (20-40); Mean Corpuscular HGB Conc 31.8 g/dl (31.0-35.0); Mean Corpuscular Hemoglobin 29.5 pg (27.0-33.0); Mean Corpuscular Volume 92.9 fL (80.0-98.0); Mean Platelet Volume 9.6 fL (9.4-12.3); Monocytes Absolute Auto 0.6 X10*3/uL (0.1-1.2); Monocytes Percent Auto 8.1 % (2-11); Neutrophils Absolute Auto 3.9 x10*3/uL (2.0-8.3); Neutrophils Percent Auto 55.7 % (45-73); Platelet Count 388 X10*3/uL (160-400); Red Cell Distribution Width 12.9 % (11.0-16.0); White Blood Count 7.1 X10*3/uL (4.8-10.8)
[2025-02-15 13:03] LABS: Alanine Aminotransferase 9 U/L (0-31); Albumin Level 3.9 g/dL (3.5-5.0); Alkaline Phosphatase 49 U/L (39-117); Anion Gap 9 (12-20); Aspartate Amino Transferase 22 U/L (5-31); Bilirubin Total 0.3 mg/dL (0.0-1.0); Blood Urea Nitrogen 14 mg/dL (9-16); Calcium 8.8 mg/dL (8.4-10.2); Carbon Dioxide 24 mmol/L (22-29); Chloride 110 mmol/L (96-108); Cholesterol 180 mg/dL (<200); Estimated Glomerular Filt Rate > 60; Glucose Fasting 83 mg/dL (60-99); HDL Cholesterol 47 mg/dL (>40); LDL Cholesterol Calculated 122 mg/dL (<100); Potassium 4.3 mmol/L (3.3-5.1); Sodium 139 mmol/L (135-145); Total Protein 6.8 g/dL (6.5-8.0); Triglycerides 59 mg/dL (<150)
[2025-02-15 13:08] LABS: TSH reflex Free T4 1.59 uIU/mL (0.32-4.0)
== END 2025-02-15 07:43 | disposition home or self-care (01) ==
LOC: HO.10HDL 07:42
PROVIDERS: Visit Provider Nurse Practitioner Family
DX: E66.01 Morbid (severe) obesity due to excess calories (principal); I10 Essential (primary) hypertension
CPT/HCPCS: 36415; 80053; 80061; 84443; 85025

== ENCOUNTER 2025-02-17 14:12 | Outpatient (AMB) | payer OTHER, SELFPAY ==
--- OUTSIDE RECORDS SUMMARY | 2025-02-17 14:14 | XMS_ITS | Clinical Summary ---
Author Organization [facility] Facility Address [address] [address] Care Team Providers Care Casting Room Helper Name Role Phone Michael Gilbert NP Primary Care Provider [phone] Social History Tobacco Use Types Packs/Day Years [...] Insurance Comprehensive Benefits Comprehensive Benefits Care Teams Casting Room Helper Relationship Specialty Start Date End Date Michael Gilbert NP 1960 [place] [address] PCP - General Nurse Practitioner 02/14/22
--- NOTE | 2025-02-17 14:19 | A.OFFVIS_ITS ---
Vital Signs 02/17/25 14:22 Height 5 ft 9 in Weight 270 lb BMI 39.9 Intake Visit Reasons: IUD check Supervisor Coffee Required: No Information Interpreted: non-clinical & clinical Director Strategic Account Management: Director Strategic Account Management Present (Tayler REYES) Accompanied by: Self / Same As Patient Allergies No Known Allergies Allergy (Verified 02/17/25 14:24) Is last menstrual period known: No (mirena) HPI Comments Details: Presenting complaining of continuous vaginal bleeding over the last 6 weeks since Mirena IUD insertion 02/15/25 H&H= 12.1/38.1 Last ultrasound in 09/29 showed 2 myomas PFSH Medical History Hx of fall (11/28/24) Morbid obesity HTN (hypertension) Constipation Vasovagal syncope Dyslipidemia Dyspnea Restless leg syndrome Atopic dermatitis Pacemaker Surgical History History of loop electrical excision procedure (LEEP) History of laparoscopic appendectomy (03/17/24) Pacemaker (02/05/18) History of lumpectomy Family History Father HTN (hypertension) Mother Asthma Son No problems noted. Daughter No problems noted. Maternal Grandmother Breast cancer Lung cancer Maternal Grandfather Diabetes mellitus Paternal Grandmother No problems noted. 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 career discovery teacher to a significant other at home: Yes (children 11+12) Do you presently have visiting nurse or other home services: No Alcohol intake: current Alcohol intake frequency: holidays/special occasions only Alcohol type: wine Comment: non weight bearing, scooter for longer distances Patient Tobacco Use Status: Former Tobacco user Tobacco use type: Cigarette Years Smoked: 6 years e-Cigarette/Vaping Use: Never Used Second Hand Smoke Exposure: No Advance Directives Date on File: 03/17/24 service: No Current occupational status: employed 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, [employer] Current occupational exposures/hazards: No Gender identity: Female Cognitive needs: No Hearing needs: No Vision needs: No Female Reproductive History Menstrual Age of Menarche: 15 Review of Systems Const All systems reviewed & are unremarkable except as noted in HPI and below Physical Exam Vital Signs: BMI result Body Mass Index 39.9 General: Yes no CVA tenderness External Female Exam: normal external appearance and normal appearance of the urethra Speculum Exam - Vagina: normal appearance of the vagina, normal palpation, no lesions and no masses Speculum Exam - Cervix: normal appearance of the cervix, normal palpation, no lesions, no masses, nontender and Other cervical findings present (IUD string in place) Bimanual exam- vagina & uterus: normal bimanual exam, normal palpation, uterine size normal, normal palpation, uterine shape normal, No Cervical tenderness present and non-tender Bimanual Exam- Adnexa, other: normal adnexae Back/Spine/Pelvis Back: no CVA tenderness Results AMB Test Urine AMB Test Urine Negative Last Edit by Tayler Arellano CMA on 14:25 Assessment & Plan Assessment & Plan (1) Abnormal uterine bleeding (AUB): Comment: With a Mirena IUD and myomas Code(s): N93.9 - Abnormal uterine and vaginal bleeding, unspecified Category: Medical Plan: UPT done in the office was negative, will order pelvic ultrasound in order to compare the size of previous myomas, determine IUD position and treat accordingly Orders: Orders US pelvic and transvaginal Today N93.9 - Abnormal uterine and vaginal bleeding, unspecified AMB HCG Urine Test Today Z32.02 - Encounter for test, result negative Coding Level of Care Code Est Pt Level 3 (79637) Diagnoses Abnormal uterine bleeding (AUB) N93.9
[2025-02-17 14:22] VITALS: BMI 39.9
== END 2025-02-17 14:57 | disposition home or self-care (01) ==
LOC: HO.HWS 14:13
PROVIDERS: PCP Nurse Practitioner Family; Visit Provider Obstetrics & Gynecology
DX: Z32.02 Encounter for pregnancy test, result negative (principal); N93.9 Abnormal uterine and vaginal bleeding, unspecified
CPT/HCPCS: 99213

== ENCOUNTER → 2025-02-17 14:12 | Outpatient (BNVA) | payer OTHER, SELFPAY | PROVIDERS: PCP Nurse Practitioner Family; Visit Provider Obstetrics & Gynecology ==

== ENCOUNTER 2025-02-17 15:56 | Outpatient (REF) | payer OTHER, SELFPAY ==
--- NOTE | ~2025-02-17 | US_ITS ---
EXAMINATION: US PELVIS TRANSABDOMINAL AND TRANSVAGINAL HISTORY: N93.9 - Abnormal uterine and vaginal bleeding, unspecified COMPARISON: Comparison is made with the prior examination dated 10/02/2024. TECHNIQUE: Transabdominal and endovaginal real-time 2D carter-scale ultrasound was performed. FINDINGS: Uterus: The uterus is normal in size, measuring 11.3 x 5.8 x 7.3 cm. Myometrium has a normal echotexture. Again seen is a right posterior fibroid measuring 4.1 x 3.7 x 4.0 cm (previously 5.3 x 3.6 x 4.9 cm), and a left-sided fibroid measuring 1.2 x 1.8 x 1.1 cm (previously 1.1 x 1.3 x 1.3 cm). Endometrium: The endometrial stripe is obscured by the presence of an IUD in appropriate position. Right ovary: The right ovary measures 4.2 x 2.7 x 3.8 cm. There is a right ovarian cyst measuring 3.4 x 3.0 x 3.2 cm. Left ovary: The left ovary measures 4.2 x 1.6 x 2.3 cm. There is exophytic cyst measuring 1.3 x 1.5 x 1.3 cm. Pelvic fluid: none. US/US pelvic and transvaginal IMPRESSION: 1. Fibroid uterus as described. 2. The endometrial stripe is obscured by an IUD in appropriate position. 3. Bilateral ovarian cysts, right greater than left. Follow-up is suggested to document resolution. Electronically signed by: Yifan Marquis MD 02/18/2025 07:01 AM EDT
--- OUTSIDE RECORDS SUMMARY | 2025-02-17 15:58 | XMS_ITS | Clinical Summary ---
Author Organization [facility] Facility Address [address] [address] Care Team Providers Care Land Development Project Manager Name Role Phone Michael Gilbert NP Primary Care Provider [phone] Social History Tobacco Use Types Packs/Day Years [...] Insurance Comprehensive Benefits Comprehensive Benefits Care Teams Land Development Project Manager Relationship Specialty Start Date End Date Michael Gilbert NP [address] [place] [address] PCP - General Nurse Practitioner 02/14/22
== END 2025-02-17 15:57 | disposition home or self-care (01) ==
LOC: HO.US 15:56
PROVIDERS: Visit Provider Obstetrics & Gynecology
DX: N93.9 Abnormal uterine and vaginal bleeding, unspecified (principal); Z32.02 Encounter for pregnancy test, result negative
CPT/HCPCS: 76830; 76856; 81025

== ENCOUNTER → 2025-02-17 15:59 | Outpatient (BNV) | payer OTHER, SELFPAY | PROVIDERS: Visit Provider Radiology Diagnostic Radiology | DX: N83.201 Unspecified ovarian cyst, right side (principal); N83.202 Unspecified ovarian cyst, left side; D25.9 Leiomyoma of uterus, unspecified | CPT/HCPCS: 76830; 76856 ==

== ENCOUNTER 2025-02-18 10:58 | Outpatient (AMB) | payer OTHER, SELFPAY ==
[2025-02-18 11:00] VITALS: BMI 39.9
--- NOTE | 2025-02-18 11:00 | A.OFFVIS_ITS ---
Vital Signs 02/18/25 11:00 Height 5 ft 9 in Weight 270 lb BMI 39.9 Intake Visit Reasons: ultrasound results Allergies No Known Allergies Allergy (Verified 02/17/25 14:24) HPI Comments Details: Presenting for ultrasound follow-up which showed the following: Uterus: The uterus is normal in size, measuring 11.3 x 5.8 x 7.3 cm. Myometrium has a normal echotexture. Again seen is a right posterior fibroid measuring 4.1 x 3.7 x 4.0 cm (previously 5.3 x 3.6 x 4.9 cm), and a left-sided fibroid measuring 1.2 x 1.8 x 1.1 cm (previously 1.1 x 1.3 x 1.3 cm). Endometrium: The endometrial stripe is obscured by the presence of an IUD in appropriate position. Right ovary: The right ovary measures 4.2 x 2.7 x 3.8 cm. There is a right ovarian cyst measuring 3.4 x 3.0 x 3.2 cm. Left ovary: The left ovary measures 4.2 x 1.6 x 2.3 cm. There is exophytic cyst measuring 1.3 x 1.5 x 1.3 cm. Pelvic fluid: none. [facility] Medical History Hx of fall (11/28/24) Morbid obesity HTN (hypertension) Constipation Vasovagal syncope Dyslipidemia Dyspnea Restless leg syndrome Atopic dermatitis Pacemaker Surgical History History of loop electrical excision procedure (LEEP) History of laparoscopic appendectomy (03/17/24) Pacemaker (02/05/18) History of lumpectomy Family History Father HTN (hypertension) Mother Asthma Son No problems noted. Daughter No problems noted. Maternal Grandmother Breast cancer Lung cancer Maternal Grandfather Diabetes mellitus Paternal Grandmother No problems noted. 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 healthcare advisory services manager to a significant other at home: Yes (children 11+12) Do you presently have visiting nurse or other home services: No Alcohol intake: current Alcohol intake frequency: holidays/special occasions only Alcohol type: wine Comment: non weight bearing, scooter for longer distances Patient Tobacco Use Status: Former Tobacco user Tobacco use type: Cigarette Years Smoked: 6 years e-Cigarette/Vaping Use: Never Used Second Hand Smoke Exposure: No Advance Directives Date on File: 03/17/24 service: No Current occupational status: employed 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, [employer] Current occupational exposures/hazards: No Gender identity: Female Cognitive needs: No Hearing needs: No Vision needs: No Female Reproductive History Menstrual Age of Menarche: 15 Review of Systems Const All systems reviewed & are unremarkable except as noted in HPI and below Reports as per HPI and Reports no additional complaints GI Reports no additional complaints Reports no additional complaints Assessment & Plan Assessment & Plan (1) Abnormal uterine bleeding (AUB): Comment: With a Mirena IUD and myomas Code(s): N93.9 - Abnormal uterine and vaginal bleeding, unspecified Category: Medical Plan: Discussed with the patient the findings on pelvic ultrasound & the risk of myosarcoma; in addition reviewed with the patient that malignancy and pre malignancy cannot be ruled out without hysterectomy for pathological evaluation ; furthermore, explained to the patient the limitation of pelvic ultrasound and endometrial biopsy in the setting. During yesterday's visit discussed with the patient the typical symptoms that are caused by myomas including but not limited to pelvic pain, pressure symptoms, abnormal uterine bleeding. In addition discussed with the patient options of treatment for myomas including: Serial ultrasounds periodically to follow-up on the size of the myoma while targeting the treatment against fibroids related symptoms (Mirena IUD, progesterone treatment, GnRH agonist/antagonist, uterine artery embolization or endometrial ablation) versus surgical treatment including hysterectomy or myomectomy. All pros and cons, risks and benefits of all options were discussed with the patient. The patient understands that delay in surgical treatment in case of myosarcoma can affect her prognosis, after further discussion, the patient decided to follow up in 6 weeks . All questions answered, the patient verbalized understanding Coding Level of Care Code Est Pt Level 3 (37689) Diagnoses Abnormal uterine bleeding (AUB) N93.9
--- OUTSIDE RECORDS SUMMARY | 2025-02-18 12:09 | XMS_ITS | Clinical Summary ---
Author Organization [facility] Facility Address [address] [address] Care Team Providers Care Health Information Managers Name Role Phone Michael Gilbert NP Primary Care Provider [phone] Social History Tobacco Use Types Packs/Day Years [...] Insurance Comprehensive Benefits Comprehensive Benefits Care Teams Health Information Managers Relationship Specialty Start Date End Date Michael Gilbert NP 1960 [place] [address] PCP - General Nurse Practitioner 02/14/22
== END 2025-02-18 11:13 | disposition home or self-care (01) ==
LOC: HO.HWS 10:58
PROVIDERS: Visit Provider Obstetrics & Gynecology
DX: N93.9 Abnormal uterine and vaginal bleeding, unspecified (principal)
CPT/HCPCS: 99213

== ENCOUNTER → 2025-02-18 10:58 | Outpatient (BNVA) | payer OTHER, SELFPAY | PROVIDERS: Visit Provider Obstetrics & Gynecology ==

== ENCOUNTER → 2025-03-11 23:59 | Outpatient (BNV) | payer OTHER, SELFPAY ==
--- NOTE | 2025-03-17 16:43 | A.OFFVIS_ITS ---
Intake Visit Reasons: Remote device check- Medtronic Allergies No Known Allergies Allergy (Verified 02/17/25 14:24) [facility] Medical History Hx of fall (11/28/24) Morbid obesity HTN (hypertension) Constipation Vasovagal syncope Dyslipidemia Dyspnea Restless leg syndrome Atopic dermatitis Pacemaker Surgical History History of loop electrical excision procedure (LEEP) History of laparoscopic appendectomy (03/17/24) Pacemaker (02/05/18) History of lumpectomy Family History Father HTN (hypertension) Mother Asthma Son No problems noted. Daughter No problems noted. Maternal Grandmother Breast cancer Lung cancer Maternal Grandfather Diabetes mellitus Paternal Grandmother No problems noted. 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 Pacemaker function is adequate [id number] Cardiac Device Interrogation, pacemaker Procedure code (CPT) selection complete Assessment & Plan Assessment & Plan (1) Pacemaker: Comment: Dual-chamber Medtronic pacemaker placed, February 2018 Code(s): Z95.0 - Presence of cardiac pacemaker Category: Medical Plan: See above Coding Level of Care Code Procedure Only Diagnoses Pacemaker Z95.0 CPT Codes Cardiac Device Check - Cardiac Device 12: [id number] Cardiac Device Interrogation, pacemaker ([id number])
== END ==
PROVIDERS: Visit Provider Internal Medicine Cardiovascular Disease
DX: Z45.018 Encounter for adjustment and management of other part of cardiac pacemaker (principal)
CPT/HCPCS: 93294

== ENCOUNTER 2025-03-29 10:56 | Outpatient (AMB) | payer OTHER, SELFPAY ==
--- NOTE | 2025-03-29 10:58 | A.OFFVIS_ITS ---
Intake Visit Reasons: fibroid f/u iud check Allergies No Known Allergies Allergy (Verified 02/17/25 14:24) HPI Comments Details: Presenting for follow-up 12 weeks post Mirena IUD insertion complaining of continuous vaginal bleeding. Vaginal bleeding has improved but it is still persistent The following workup was done for abnormal uterine bleedin02/15/25 H&H= 12.1/38.1 12/30/2024 hysteroscopy D&C polypectomy pathology showed the following: A. Endometrium, curettage: Benign disordered proliferative endometrium, fragments of benign endometrial polyp, and benign endocervical glandular and squamous epithelium; no atypia or carcinoma. B. Endometrial polyp, resection: Fragments of benign endometrial polyp; no atypia or carcinoma. 07/30 co testing was negative 02/28 pelvic ultrasound: Uterus: The uterus is normal in size, measuring 11.3 x 5.8 x 7.3 cm. Myometrium has a normal echotexture. Again seen is a right posterior fibroid measuring 4.1 x 3.7 x 4.0 cm (previously 5.3 x 3.6 x 4.9 cm), and a left-sided fibroid measuring 1.2 x 1.8 x 1.1 cm (previously 1.1 x 1.3 x 1.3 cm). Endometrium: The endometrial stripe is obscured by the presence of an IUD in appropriate position. Right ovary: The right ovary measures 4.2 x 2.7 x 3.8 cm. There is a right ovarian cyst measuring 3.4 x 3.0 x 3.2 cm. Left ovary: The left ovary measures 4.2 x 1.6 x 2.3 cm. There is exophytic cyst measuring 1.3 x 1.5 x 1.3 cm. Pelvic fluid: none. ON LICENSE OF [facility] Medical History Hx of fall (11/28/24) Morbid obesity HTN (hypertension) Constipation Vasovagal syncope Dyslipidemia Dyspnea Restless leg syndrome Atopic dermatitis Pacemaker Surgical History History of loop electrical excision procedure (LEEP) History of laparoscopic appendectomy (03/17/24) Pacemaker (02/05/18) History of lumpectomy Family History Father HTN (hypertension) Mother Asthma Son No problems noted. Daughter No problems noted. Maternal Grandmother Breast cancer Lung cancer Maternal Grandfather Diabetes mellitus Paternal Grandmother No problems noted. 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 at home: Yes (children 11+1 2) Do you presently have visiting nurse or other home services: No Alcohol intake: current Alcohol intake frequency: holidays/special occasions only Alcohol type: wine Comment: non weight bearing, scooter for longer distances Patient Tobacco Use Status: Former Tobacco user Tobacco use type: Cigarette Years Smoked: 6 years e-Cigarette/Vaping Use: Never Used Second Hand Smoke Exposure: No Advance Directives Date on File: 03/17/24 service: No Current occupational status: employed 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 [employer] Current occupational exposures/hazards: No Gender identity: Female Cognitive needs: No Hearing needs: No Vision needs: No Female Reproductive History Menstrual Age of Menarche: 15 Review of Systems Const All systems reviewed & are unremarkable except as noted in HPI and below Reports as per HPI and Reports no additional complaints GI Reports no additional complaints Reports no additional complaints Assessment & Plan Assessment & Plan (1) Abnormal uterine bleeding (AUB): Comment: With a Mirena IUD and myomas Code(s): N93.9 - Abnormal uterine and vaginal bleeding, unspecified Category: Medical Plan: Discussed with the patient the options of treatment for myomas including: Serial ultrasounds periodically to follow-up on the size of the myoma while targeting the treatment against fibroids related symptoms ( control pills, Mirena IUD, progesterone treatment, GnRH agonist/antagonist, uterine artery embolization or endometrial ablation) versus surgical treatment including hysterectomy and/ or myomectomy. All pros and cons, risks and benefits of all options were discussed with the patient. The patient decided to proceed with hysterectomy. Discussed with the patient the different types of hysterectomies including, vaginal, laparoscopic assisted vaginal, robotic assisted laparoscopic,& abdominal . All pros, cons, r/b of each approach were discussed the patient including evidence that morbidity is less and recovery is shorter with minimally invasive approaches to hysterectomy. Discussed with the patient the lack of availability of the robot DaVinci robot and/or minimally invasive senior teradata developer specialist at [facility]. Will refer to [facility] minimally invasive line builder surgery. Instructed the patient to call our office back in case a referral appointment is not scheduled, missed or canceled so that we will assist on rescheduling another appointment, the patient verbalized understanding agreed with the plan. Coding Level of Care Code Est Pt Level 3 (97650) Diagnoses Abnormal uterine bleeding (AUB) N93.9
--- OUTSIDE RECORDS SUMMARY | 2025-03-29 12:25 | XMS_ITS | Clinical Summary ---
Author Organization [facility] Facility Address [address] [address] Care Team Providers Care Vice President Marketing & Development Name Role Phone Michael Gilbert NP Primary Care Provider [phone] Social History Tobacco Use Types Packs/Day Years [...] Insurance Comprehensive Benefits Comprehensive Benefits Care Teams Vice President Marketing & Development Relationship Specialty Start Date End Date Michael Gilbert NP 1960 [place] [address] PCP - General Nurse Practitioner 02/14/22
== END 2025-03-29 11:50 | disposition home or self-care (01) ==
PROVIDERS: Visit Provider Obstetrics & Gynecology
DX: N93.9 Abnormal uterine and vaginal bleeding, unspecified (principal)
CPT/HCPCS: 99213

== ENCOUNTER → 2025-06-10 23:59 | Outpatient (BNV) | payer OTHER, SELFPAY ==
--- NOTE | 2025-06-17 14:35 | A.OFFVIS_ITS ---
Intake Visit Reasons: Remote device check- Medtronic Allergies No Known Allergies Allergy (Verified 02/17/25 14:24) [facility] Medical History Hx of fall (11/28/24) Morbid obesity HTN (hypertension) Constipation Vasovagal syncope Dyslipidemia Dyspnea Restless leg syndrome Atopic dermatitis Pacemaker Surgical History History of loop electrical excision procedure (LEEP) History of laparoscopic appendectomy (03/17/24) Pacemaker (02/05/18) History of lumpectomy Family History Father HTN (hypertension) Mother Asthma Son No problems noted. Daughter No problems noted. Maternal Grandmother Breast cancer Lung cancer Maternal Grandfather Diabetes mellitus Paternal Grandmother No problems noted. 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 Pacemaker function is adequate [id number] Cardiac Device Interrogation, pacemaker Procedure code (CPT) selection complete Assessment & Plan Assessment & Plan (1) Pacemaker: Comment: Dual-chamber Medtronic pacemaker placed, February 2018 Code(s): Z95.0 - Presence of cardiac pacemaker Category: Medical Plan: See above Coding Level of Care Code Procedure Only Diagnoses Pacemaker Z95.0 CPT Codes Cardiac Device Check - Cardiac Device 12: [id number] Cardiac Device Interrogation, pacemaker ([id number])
== END ==
PROVIDERS: Visit Provider Internal Medicine Cardiovascular Disease
DX: Z45.018 Encounter for adjustment and management of other part of cardiac pacemaker (principal)
CPT/HCPCS: 93294

== ENCOUNTER 2025-06-21 15:10 | Outpatient (AMB) | payer OTHER, SELFPAY ==
[2025-06-21 15:30] VITALS: BP 110/72; PULSE 68; BMI 38.4
--- NOTE | 2025-06-21 15:30 | A.OFFVIS_ITS ---
Vital Signs 06/21/25 15:30 Height 5 ft 9 in Weight 260 lb 2.327 oz BMI 38.4 BP 110/72 Blood Pressure Location Lt brachial Position Sitting Pulse 68 Intake Visit Reasons: pre-op with ekg and medtronic check Intake Note: Pre-op clearance with ekg and medtronic check Septic Tank Installer Required: No Allergies No Known Allergies Allergy (Verified 02/17/25 14:24) Medication List - Last Reconciled 06/21/25 by Vinicio Camacho MD labetalol 200 mg PO BID metronidazole 500 mg PO BID 7 days tirzepatide (weight loss) 15 mg (0.5 mL) subcut QWEEK HPI Comments Details: Tracie comes for follow-up as she has requested to see me for preoperative cardiovascular risk stratification prior to hysterectomy. She occasionally still feels lightheaded but has not had a full syncopal episode. Denies any prolonged palpitation irregular heartbeat. Remains active and functional and has no exertional chest pain or shortness of breath. Maintains adequate hydration. No prolonged palpitation irregular heartbeat. No heart failure symptoms. [facility] Medical History Hx of fall (11/28/24) Morbid obesity HTN (hypertension) Constipation Vasovagal syncope Dyslipidemia Dyspnea Restless leg syndrome Atopic dermatitis Pacemaker Surgical History History of loop electrical excision procedure (LEEP) History of laparoscopic appendectomy (03/17/24) Pacemaker (02/05/18) History of lumpectomy Family History Father HTN (hypertension) Mother Asthma Son No problems noted. Daughter No problems noted. Maternal Grandmother Breast cancer Lung cancer Maternal Grandfather Diabetes mellitus Paternal Grandmother No problems noted. 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 to a significant other at home: Yes (children 11+12) Do you presently have visiting nurse or other home services: No Alcohol intake: current Alcohol intake frequency: holidays/special occasions only Alcohol type: wine Comment: non weight bearing, scooter for longer distances Patient Tobacco Use Status: Former Tobacco user Tobacco use type: Cigarette Years Smoked: 6 years e-Cigarette/Vaping Use: Never Used Second Hand Smoke Exposure: No Advance Directives Date on File: 03/17/24 service: No Current occupational status: employed 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, [employer] Current occupational exposures/hazards: No Gender identity: Female Cognitive needs: No Hearing needs: No Vision needs: No Female Reproductive History Menstrual Age of Menarche: 15 Review of Systems Const Denies chills, Denies fatigue, Denies fever(s), Denies frequent falls, Denies weakness, Denies weight gain and Denies weight loss ENT Denies dizziness Card Denies chest pain, Denies leg edema, Denies lightheadedness, Denies palpitations, Denies dyspnea, Denies dyspnea on exertion, Denies orthopnea and Denies other (loss of consciousness) Resp Denies cough, Denies dyspnea and Denies dyspnea on exertion GI Denies hematochezia and Denies change in stool character Musc Denies abnormal gait, Denies muscle weakness, Denies numbness, Denies radiating pain into limb and Denies tingling Neuro Denies abnormal gait, Denies dizziness, Denies frequent falls, Denies numbness, Denies tingling and Denies weakness Endo Denies fatigue and Denies palpitations Physical Exam Vital Signs: Last Vital Signs Pulse 68 06/21/25 15:30 BP 110/72 06/21/25 15:30 BMI result Body Mass Index 38.4 Const General: cooperative, healthy appearing, comfortable, no acute distress, well developed, alert, awake and well groomed Nutritional Appearance: obese Orientation/consciousness: patient oriented x3 Limitations: no limitations Neck Neck: Yes trachea midline, Yes supple and Yes no JVD Resp Effort & Inspection: normal respiratory effort Auscultation: clear to auscultation bilaterally Cardio Jugular venous distension: no JVD Palpation: normal PMI Rate: regular rate Rhythm: regular rhythm Heart sounds: S1 normal heart sound present and S2 normal heart sound present GI Auscultation: normal bowel sounds Skin General skin exam: no rashes or lesions noted Neuro General: patient oriented x3 and no focal motor deficits Extrem General: Yes no clubbing, cyanosis or edema Psych Appearance: grossly normal Office Procedures Cardiac Device Check Cardiac Device Check Details: Dual-chamber Medtronic pacemaker in place. Programmed in MVP mode with rate drop response. Twelve rate drop response was seen. Atrial pacing thresholds excellent and reprogrammed to enhance safety. Ventricular pacing thresholds adequate but elevated but stable. Atrial ventricular sensing is adequate. Pacing lead impedance is stable. Battery life is excellent at 8.6 years [id number] Cardiac Device Check, pacemaker dual lead Procedure code (CPT) selection complete EKG Details: EKG shows normal sinus rhythm with normal EKG [id number], Complete Assessment & Plan Assessment & Plan (1) Preoperative cardiovascular examination: Code(s): Z01.810 - Encounter for preprocedural cardiovascular examination Plan: Preoperative cardiovascular risk stratification this young woman with no cardiac symptoms with good exercise capacity to undergo hysterectomy under general anesthesia. Reported to her that this would be a long surgery for about 6 hours and she would be in a Trendelenburg position. She has a pacemaker which does not contraindicate her from having surgery. She is currently optimized from my perspective to undergo surgery with low risk for perioperative cardiovascular morbidity mortality. The no restriction to cautery use. Replace fluid loss/blood loss aggressively if needed. Monitor hemodynamics during the anesthesia. (2) Pacemaker: Comment: Dual-chamber Medtronic pacemaker placed, February 2018 Code(s): Z95.0 - Presence of cardiac pacemaker Category: Medical Plan: Cardiac pacemaker in-situ for vasovagal syncope. Pacemaker is working well. Reprogrammed for adequate functioning. She is not much pacer dependent. She had also had very minimal rate drop responses. Will continue monitor remotely every 3 months. Follow up in the clinic in 1 year's time, sooner p.r.n.. Thank you for allowing me to partake in her care Coding Level of Care Code Est Pt Level 4 (16127) Complex EM visit Add On G2211 Diagnoses Preoperative cardiovascular examination Z01.810 Pacemaker Z95.0 CPT Codes Cardiac Device Check - Cardiac Device 2: 47628-XS Cardiac Device Check, pacemaker dual lead ([id number]) EKG - CPT: 93914-[id number], Complete ([id number])
--- OUTSIDE RECORDS SUMMARY | 2025-06-21 20:36 | XMS_ITS | Clinical Summary ---
Author Organization [facility] Facility Address [address] [address] Care Team Providers Care Washer Meat Name Role Phone Michael Gilbert NP Primary Care Provider [phone] Social History Tobacco Use Types Packs/Day Years [...] 19+ 3-dose series) 2005 Influenza Vaccine (#1) 2025 Pneumococcal Vaccine: Peds ( 0 to 5 Years) and At-Risk Patients (6 to 49 Years) Aged Out No longer eligible b ased on patient's age to complete this topic Insurance Comprehensive Benefits Comprehensive Benefits Care Teams Washer Meat Relationship Specialty Start Date End Date Michael Gilbert NP 1960 [place] [address] PCP - General Nurse Practitioner 02/14/22
== END 2025-06-21 16:51 | disposition home or self-care (01) ==
LOC: HO.HCS 15:11
PROVIDERS: Visit Provider Internal Medicine Cardiovascular Disease
DX: Z01.810 Encounter for preprocedural cardiovascular examination (principal); R42 Dizziness and giddiness; Z95.0 Presence of cardiac pacemaker; Z45.018 Encounter for adjustment and management of other part of cardiac pacemaker
CPT/HCPCS: 93010; 93280; 99214

== ENCOUNTER → 2025-06-21 15:10 | Outpatient (BNVA) | payer OTHER, SELFPAY | PROVIDERS: Visit Provider Internal Medicine Cardiovascular Disease | DX: Z01.810 Encounter for preprocedural cardiovascular examination (principal); Z45.010 Encounter for checking and testing of cardiac pacemaker pulse generator [battery] | CPT/HCPCS: 93005; 93280 ==

== ENCOUNTER → 2025-09-22 15:00 | Outpatient (BNV) | payer OTHER, SELFPAY | PROVIDERS: Visit Provider Internal Medicine Cardiovascular Disease | DX: Z45.018 Encounter for adjustment and management of other part of cardiac pacemaker (principal) | CPT/HCPCS: 93294 ==